=== PATIENT | female | born 1955 | race Caucasian/White ===

== ENCOUNTER 2018-02-04 19:02 | Inpatient (IN) | payer OTHER ==
[~2018-02-04] VITALS: Ht 167.6 cm; Wt 56.8 kg
[~2018-02-04 19:02] MED LIST: ALEN70 PO; Cipro500 MG PO; FERR325 PO; FOLI1 PO; Flagyl500 MG PO; IBUP400 PO; Mirtazapine7.5 MG PO; Norco 5-325 Ta1 EACH PO; PANT40 PO; SIMV10; THIA100 PO; TRAM50 PO; TRAZ50
[2018-02-04 21:00] LABS: BASOPHILS ABSOLUTE AUTO 0.02 K/mm3 (0.00-0.23); BASOPHILS PERCENT AUTO 0 % (0-2); EOSINOPHILS ABSOLUTE AUTO 0.01 K/mm3 (0.00-0.68); EOSINOPHILS PERCENT AUTO 0 % (0-6); Hematocrit 33.1 % (33.0-51.0); Hemoglobin 11.7 g/dL (11.5-16.0); IMMATURE GRAN ABSOLUTE AUTO 0.01 K/mm3 (0.00-0.10); IMMATURE GRAN PERCENT AUTO 0 % (0-1); LYMPHOCYTES ABSOLUTE AUTO 0.97 K/mm3 (0.84-5.20); LYMPHOCYTES PERCENT AUTO 19 % (21-46); MONOCYTES ABSOLUTE AUTO 0.34 K/mm3 (0.16-1.47); MONOCYTES PERCENT AUTO 7 % (4-13); Mean Corpuscular HGB 34.2 pg (26.0-34.0); Mean Corpuscular HGB Conc 35.3 g/dL (31.5-36.5); Mean Corpuscular Volume 97 fL (80-100); NEUTROPHILS ABSOLUTE AUTO 3.66 K/mm3 (1.96-9.15); NEUTROPHILS PERCENT AUTO 73 % (41-73); Platelet Count 110 K/mm3 (150-400); RDW Coefficient Variation 14.3 % (11.7-14.2); RDW Standard Deviation 50.7 fL (35.1-46.3); Red Blood Cell Count 3.42 M/mm3 (3.80-5.20); White Blood Cell Count 5.01 K/mm3 (4.00-11.30)
[2018-02-04 21:20] LABS: Alanine Aminotransfer (ALT/SGP 27 U/L (12-78); Albumin, Blood 2.9 g/dL (3.4-5.0); Albumin/Globulin Ratio 0.7 (0.8-1.8); Alk Phos 118 U/L (50-136); Anion Gap 13 mmol/L (6-16); Aspartate Aminotrans (AST/SGOT 57 U/L (12-37); Bilirubin, Total 0.6 mg/dL (0.1-1.0); Blood Urea Nitrogen 16 mg/dL (8-24); Bun/Creatinine Ratio 28.6 (12.0-20.0); CO2, Blood 24 mmol/L (21-32); Chloride, Blood 96 mmol/L (98-108); Creatinine, Blood 0.56 mg/dL (0.40-1.00); Glomerular Filtration Rate >60 (60-); Glucose, Blood 105 mg/dL (70-99); Potassium, Blood 2.5 mmol/L (3.5-5.5); Sodium, Blood 133 mmol/L (136-145); Total Protein, Blood 6.9 g/dL (6.4-8.2)
[2018-02-04 21:22] LABS: Lactate Dehydrogenase (Ld),Bld 194 U/L (100-240); Troponin I <0.015 ng/mL (0.000-0.040)
[2018-02-04 21:33] LABS: Source, Urine Clean Catch
[2018-02-04 21:35] LABS: Blood, Urine 2+ (Neg); Glucose Qualitative, Urine Neg (Neg); Ketones, Urine 3+ (Neg); Leukocyte Esterase, Urine 2+ (Neg); Nitrite, Urine Neg (Neg); Protein, Urine 3+ (Neg); Specific Gravity, Urine 1.015 (1.003-1.022); Urobilinogen, Urine 3+ (Normal)
[2018-02-04 21:40] LABS: Appearance, Urine Cloudy (Clear); Bilirubin, Urine 2+ (Neg); Color, Urine Amber (P-Yellow)
[2018-02-04 21:41] LABS: Bacteria Many /hpf; Red Blood Cells, Urine 0-2 /hpf (0-2); Squamous Epithelial Cells Few /hpf (Few)
[2018-02-04 23:05] LABS: Triglycerides 139 mg/dL (30-160)
[2018-02-05 05:28] LABS: Hematocrit 27.9 % (33.0-51.0); Hemoglobin 9.9 g/dL (11.5-16.0); Mean Corpuscular HGB 34.6 pg (26.0-34.0); Mean Corpuscular HGB Conc 35.5 g/dL (31.5-36.5); Mean Corpuscular Volume 98 fL (80-100); Mean Platelet Volume 11.1 fL (9.1-12.4); Platelet Count 93 K/mm3 (150-400); RDW Coefficient Variation 14.5 % (11.7-14.2); RDW Standard Deviation 51.7 fL (35.1-46.3); Red Blood Cell Count 2.86 M/mm3 (3.80-5.20); White Blood Cell Count 3.23 K/mm3 (4.00-11.30)
[2018-02-05 05:46] LABS: Anion Gap 10 mmol/L (6-16); Blood Urea Nitrogen 15 mg/dL (8-24); Bun/Creatinine Ratio 43.5 (12.0-20.0); CO2, Blood 24 mmol/L (21-32); Chloride, Blood 100 mmol/L (98-108); Creatinine, Blood 0.35 mg/dL (0.40-1.00); Glomerular Filtration Rate >60 (60-); Glucose, Blood 91 mg/dL (70-99); Potassium, Blood 3.2 mmol/L (3.5-5.5); Sodium, Blood 134 mmol/L (136-145)
[2018-02-05 14:35] LABS: BASOPHILS ABSOLUTE AUTO 0.01 K/mm3 (0.00-0.23); BASOPHILS PERCENT AUTO 0 % (0-2); EOSINOPHILS ABSOLUTE AUTO 0.04 K/mm3 (0.00-0.68); EOSINOPHILS PERCENT AUTO 1 % (0-6); Hematocrit 29.4 % (33.0-51.0); Hemoglobin 10.1 g/dL (11.5-16.0); IMMATURE GRAN ABSOLUTE AUTO 0.01 K/mm3 (0.00-0.10); IMMATURE GRAN PERCENT AUTO 0 % (0-1); LYMPHOCYTES ABSOLUTE AUTO 1.03 K/mm3 (0.84-5.20); LYMPHOCYTES PERCENT AUTO 32 % (21-46); MONOCYTES ABSOLUTE AUTO 0.31 K/mm3 (0.16-1.47); MONOCYTES PERCENT AUTO 10 % (4-13); Mean Corpuscular HGB 34.1 pg (26.0-34.0); Mean Corpuscular HGB Conc 34.4 g/dL (31.5-36.5); Mean Corpuscular Volume 99 fL (80-100); Mean Platelet Volume 11.4 fL (9.1-12.4); NEUTROPHILS ABSOLUTE AUTO 1.84 K/mm3 (1.96-9.15); NEUTROPHILS PERCENT AUTO 57 % (41-73); Platelet Count 109 K/mm3 (150-400); RDW Coefficient Variation 14.6 % (11.7-14.2); RDW Standard Deviation 54.1 fL (35.1-46.3); Red Blood Cell Count 2.96 M/mm3 (3.80-5.20); White Blood Cell Count 3.24 K/mm3 (4.00-11.30)
[2018-02-06 05:53] LABS: Albumin, Blood 2.2 g/dL (3.4-5.0); Anion Gap 8 mmol/L (6-16); Blood Urea Nitrogen 7 mg/dL (8-24); Bun/Creatinine Ratio 16.4 (12.0-20.0); CO2, Blood 27 mmol/L (21-32); Calcium, Blood 7.9 mg/dL (8.5-10.1); Chloride, Blood 101 mmol/L (98-108); Creatinine, Blood 0.43 mg/dL (0.40-1.00); Glomerular Filtration Rate >60 (60-); Glucose, Blood 120 mg/dL (70-99); Magnesium, Blood 1.7 mg/dL (1.6-2.4); Potassium, Blood 3.1 mmol/L (3.5-5.5); Sodium, Blood 136 mmol/L (136-145)
[2018-02-06 06:00] LABS: Phosphorus, Blood 0.9 mg/dL (2.5-4.9)
[2018-02-06 14:19] LABS: Albumin, Blood 2.3 g/dL (3.4-5.0); Anion Gap 4 mmol/L (6-16); Blood Urea Nitrogen 7 mg/dL (8-24); Bun/Creatinine Ratio 15.3 (12.0-20.0); CO2, Blood 29 mmol/L (21-32); Calcium, Blood 7.9 mg/dL (8.5-10.1); Chloride, Blood 99 mmol/L (98-108); Creatinine, Blood 0.46 mg/dL (0.40-1.00); Glomerular Filtration Rate >60 (60-); Glucose, Blood 120 mg/dL (70-99); Phosphorus, Blood 3.5 mg/dL (2.5-4.9); Sodium, Blood 132 mmol/L (136-145)
[2018-02-06 21:53] LABS: Stool Occult Blood Guaiac 1 Pos (Neg)
[2018-02-07 05:23] LABS: BASOPHILS ABSOLUTE AUTO 0.02 K/mm3 (0.00-0.23); BASOPHILS PERCENT AUTO 1 % (0-2); EOSINOPHILS ABSOLUTE AUTO 0.04 K/mm3 (0.00-0.68); EOSINOPHILS PERCENT AUTO 1 % (0-6); Hematocrit 25.8 % (33.0-51.0); Hemoglobin 8.9 g/dL (11.5-16.0); IMMATURE GRAN ABSOLUTE AUTO 0.03 K/mm3 (0.00-0.10); IMMATURE GRAN PERCENT AUTO 1 % (0-1); LYMPHOCYTES ABSOLUTE AUTO 1.29 K/mm3 (0.84-5.20); LYMPHOCYTES PERCENT AUTO 39 % (21-46); MONOCYTES ABSOLUTE AUTO 0.42 K/mm3 (0.16-1.47); MONOCYTES PERCENT AUTO 13 % (4-13); Mean Corpuscular HGB 33.6 pg (26.0-34.0); Mean Corpuscular HGB Conc 34.5 g/dL (31.5-36.5); Mean Corpuscular Volume 97 fL (80-100); Mean Platelet Volume 11.2 fL (9.1-12.4); NEUTROPHILS PERCENT AUTO 46 % (41-73); Platelet Count 138 K/mm3 (150-400); RDW Coefficient Variation 14.8 % (11.7-14.2); RDW Standard Deviation 52.2 fL (35.1-46.3); Red Blood Cell Count 2.65 M/mm3 (3.80-5.20)
[2018-02-07 05:45] LABS: Albumin, Blood 2.1 g/dL (3.4-5.0); Anion Gap 7 mmol/L (6-16); Blood Urea Nitrogen 7 mg/dL (8-24); Bun/Creatinine Ratio 17.1 (12.0-20.0); CO2, Blood 28 mmol/L (21-32); Calcium, Blood 7.8 mg/dL (8.5-10.1); Chloride, Blood 103 mmol/L (98-108); Creatinine, Blood 0.41 mg/dL (0.40-1.00); Glomerular Filtration Rate >60 (60-); Glucose, Blood 96 mg/dL (70-99); Phosphorus, Blood 3.2 mg/dL (2.5-4.9); Potassium, Blood 3.5 mmol/L (3.5-5.5); Sodium, Blood 138 mmol/L (136-145)
[2018-02-08 05:15] LABS: BASOPHILS ABSOLUTE AUTO 0.01 K/mm3 (0.00-0.23); BASOPHILS PERCENT AUTO 0 % (0-2); EOSINOPHILS ABSOLUTE AUTO 0.04 K/mm3 (0.00-0.68); EOSINOPHILS PERCENT AUTO 1 % (0-6); Hematocrit 27.7 % (33.0-51.0); Hemoglobin 9.4 g/dL (11.5-16.0); IMMATURE GRAN ABSOLUTE AUTO 0.02 K/mm3 (0.00-0.10); IMMATURE GRAN PERCENT AUTO 1 % (0-1); LYMPHOCYTES ABSOLUTE AUTO 1.38 K/mm3 (0.84-5.20); LYMPHOCYTES PERCENT AUTO 41 % (21-46); MONOCYTES ABSOLUTE AUTO 0.54 K/mm3 (0.16-1.47); MONOCYTES PERCENT AUTO 16 % (4-13); Mean Corpuscular HGB 33.7 pg (26.0-34.0); Mean Corpuscular HGB Conc 33.9 g/dL (31.5-36.5); Mean Corpuscular Volume 99 fL (80-100); Mean Platelet Volume 10.8 fL (9.1-12.4); NEUTROPHILS ABSOLUTE AUTO 1.42 K/mm3 (1.96-9.15); NEUTROPHILS PERCENT AUTO 42 % (41-73); Platelet Count 180 K/mm3 (150-400); RDW Coefficient Variation 15.2 % (11.7-14.2); RDW Standard Deviation 56.5 fL (35.1-46.3); Red Blood Cell Count 2.79 M/mm3 (3.80-5.20); White Blood Cell Count 3.41 K/mm3 (4.00-11.30)
[2018-02-08 05:42] LABS: Alanine Aminotransfer (ALT/SGP 27 U/L (12-78); Albumin, Blood 2.2 g/dL (3.4-5.0); Albumin/Globulin Ratio 0.7 (0.8-1.8); Anion Gap 7 mmol/L (6-16); Aspartate Aminotrans (AST/SGOT 36 U/L (12-37); Bilirubin, Total 0.2 mg/dL (0.1-1.0); Blood Urea Nitrogen 9 mg/dL (8-24); CO2, Blood 29 mmol/L (21-32); Calcium, Blood 8.3 mg/dL (8.5-10.1); Chloride, Blood 102 mmol/L (98-108); Globulin, Blood 3.3 g/dL (2.2-4.0); Glomerular Filtration Rate >60 (60-); Glucose, Blood 102 mg/dL (70-99); Magnesium, Blood 1.8 mg/dL (1.6-2.4); Sodium, Blood 138 mmol/L (136-145); Total Protein, Blood 5.5 g/dL (6.4-8.2)
[2018-02-08 05:43] LABS: Alk Phos 86 U/L (50-136)
[2018-02-08] MEDS ORDERED: FOLI1 PO (09:36)
[2018-02-08] MEDS ORDERED: ONDA4 PO (09:37)
[2018-02-08] MEDS ORDERED: PANT20 PO (09:37)
[2018-02-08] MEDS ORDERED: PRENATAL FORMU1 EAC1 PO (09:38)
[2018-02-08] MEDS ORDERED: THIA100 PO (09:39)
== END 2018-02-08 10:25 | disposition home or self-care (01) | DRG 439 ==
LOC: ER 19:02 → MEDS 22:45 → ENPENDDIS 02-08 09:38 → MEDS 02-08 10:25
PROVIDERS: Emergency Medicine; Hospitalist; Internal Medicine; Nurse Practitioner Acute Care
DX: K85.20 Alcohol induced acute pancreatitis without necrosis or infection (principal); N39.0 Urinary tract infection, site not specified; D61.818 Other pancytopenia; J45.909 Unspecified asthma, uncomplicated; F32.9 Major depressive disorder, single episode, unspecified; J44.9 Chronic obstructive pulmonary disease, unspecified; F17.210 Nicotine dependence, cigarettes, uncomplicated; E87.6 Hypokalemia; F10.20 Alcohol dependence, uncomplicated; E83.39 Other disorders of phosphorus metabolism; B96.20 Unspecified Escherichia coli [E. coli] as the cause of diseases classified elsewhere
CPT/HCPCS: 36415; 76705; 80048; 80053; 80069; 81001; 82272; 83615; 83690; 83735; 84100; 84478; 84484; 85025; 85027; 86140; 87077; 87086; 87186; 94640; 94760; 96361; 96365; 99285-25; C9113; J0696; J3411; J3480; J7030; J7060; J7120

== ENCOUNTER 2019-05-23 16:24 | Inpatient (IN) | payer OTHER ==
[~2019-05-23] VITALS: Ht 152.4 cm; Wt 62.7 kg
[~2019-05-23 16:24] MED LIST changes: -ALBU2.5V5 INH; -B-1100 M1 PO; -CIPR500 PO; -FERROUS SULFAT325 MG PO; -METR500 PO; -MIRT15 PO; -OMEPRAZOLE20 MG PO; -POTCHL20ER PO; -SIMV10 PO
[2019-05-23] MEDS ORDERED: ALEN70 PO (16:53)
[2019-05-23] MEDS ORDERED: SIMV10 PO (17:19)
[2019-05-23] MEDS ORDERED: FERROUS SULFAT325 MG PO (17:20)
[2019-05-23] MEDS ORDERED: FOLI1 PO (17:20)
[2019-05-23] MEDS ORDERED: OMEPRAZOLE20 MG PO (17:21)
[2019-05-23] MEDS ORDERED: MIRT15 PO (17:22)
[2019-05-23] MEDS ORDERED: POTCHL20ER PO (17:23)
--- NOTE | 2019-05-23 19:35 | NUR ---
ASSUMED CARE OF PT AT 1928. PT DENIES PAIN , VITALS STABLE, RECIEVING UNIT OF RBCs.
--- NOTE | 2019-05-23 19:40 | NUR ---
PT CAME TO ICU 1809; SHE IS ALERT AND ORIENTED X 3-4, EQUAL HOGSHEAD LINER, BUT WEAK. I BELIEVE SHE IS AT HER BASELINE FOR RANGE OF MOTION; FAIRLY FULL (AGAIN, SHE IS VERY WEAK). SHE IS IN SINUS RHYTHM TO SINUS TACH: 95-115; HER BLOOD PRESSURE IS SOFT PRIOR TO RECEIVING BLOOD PRODUCTS (SBP 80'S). CURRENTLY HER SBP HAS REACHED 90'S TO LOW 100-110. SHE DENIES CP, SOB, NAUSEA/VOMITING, DIZZINESS (SHE PREVIOUSLY WAS DIZZY), AND ANY DISCOMFORT AT THIS TIME. SHE IS A LITTLE WHEEZY, AND TAKES SHALLOW BREATHES, BUT IS SAT'ING HIGH 90'S. SHE HAS A COUGH AND SEEMS TO PRODUCING PHLEGM, BUT NOT IS COMING UP (THAT I HAVE SEEN). ACTIVE BOWEL TONES, SHE HAD AN INCONTINENT BM PRIOR TO ICU ADMISSION. SHE HAS NOT VOIDED SINCE ARRIVAL TO ICU. SKIN IS VERY FRAGILE, AND BRUISED FROM HER SEVERE ANEMIA. SHE HAS 2+ PITTING EDEMA IN HER BLE'S. SHE HAS PATENT IV'S. SHE HAS THE FIRST UNIT OF BLOOD INFUSING AT 125ML/HR. PROTONIX GTTP AND KCL IS WAITING TO BE STARTED. PULSES ARE SLIGHTLY FAINT AND THREADY IN DISTAL EXTREMETIES. I GAVE REPORT TO MARCELINO PALACIOS. BED IS LOW AND LOCKED. CALL LIGHT WITHIN REACH. PT IS ORIENTED TO HER ROOM.
[2019-05-23 22:35] LABS: BASOPHILS ABSOLUTE AUTO 0.01 K/mm3 (0.00-0.23); BASOPHILS PERCENT AUTO 0 % (0-2); EOSINOPHILS ABSOLUTE AUTO 0.01 K/mm3 (0.00-0.68); EOSINOPHILS PERCENT AUTO 0 % (0-6); Hematocrit 26.1 % (33.0-51.0); Hemoglobin 9.2 g/dL (11.5-16.0); IMMATURE GRAN ABSOLUTE AUTO 0.01 K/mm3 (0.00-0.10); IMMATURE GRAN PERCENT AUTO 0 % (0-1); LYMPHOCYTES ABSOLUTE AUTO 1.37 K/mm3 (0.84-5.20); LYMPHOCYTES PERCENT AUTO 31 % (21-46); MONOCYTES ABSOLUTE AUTO 0.57 K/mm3 (0.16-1.47); MONOCYTES PERCENT AUTO 13 % (4-13); Mean Corpuscular HGB 33.3 pg (26.0-34.0); Mean Corpuscular HGB Conc 35.2 g/dL (31.5-36.5); Mean Corpuscular Volume 95 fL (80-100); NEUTROPHILS ABSOLUTE AUTO 2.49 K/mm3 (1.96-9.15); NEUTROPHILS PERCENT AUTO 56 % (41-73); Platelet Count 125 K/mm3 (150-400); RDW Coefficient Variation 16.2 % (11.7-14.2); RDW Standard Deviation 55.5 fL (35.1-46.3); Red Blood Cell Count 2.76 M/mm3 (3.80-5.20); White Blood Cell Count 4.46 K/mm3 (4.00-11.30)
[2019-05-23 22:56] LABS: Magnesium, Blood 1.2 mg/dL (1.6-2.4)
[2019-05-23 23:06] LABS: Percent Saturation 127.1 % (15.0-50.0)
[2019-05-23 23:52] LABS: Phosphorus, Blood 1.7 mg/dL (2.5-4.9)
--- NOTE | 2019-05-24 03:20 | NUR ---
NS 500ML BOLUS GIVEN FROM 1LITER BAG FOR LOW BP 79/53.
[2019-05-24 03:51] LABS: BASOPHILS ABSOLUTE AUTO 0.02 K/mm3 (0.00-0.23); BASOPHILS PERCENT AUTO 1 % (0-2); EOSINOPHILS PERCENT AUTO 0 % (0-6); Hematocrit 26.1 % (33.0-51.0); Hemoglobin 9.2 g/dL (11.5-16.0); IMMATURE GRAN ABSOLUTE AUTO 0.02 K/mm3 (0.00-0.10); IMMATURE GRAN PERCENT AUTO 1 % (0-1); LYMPHOCYTES ABSOLUTE AUTO 1.24 K/mm3 (0.84-5.20); LYMPHOCYTES PERCENT AUTO 30 % (21-46); MONOCYTES ABSOLUTE AUTO 0.51 K/mm3 (0.16-1.47); MONOCYTES PERCENT AUTO 12 % (4-13); Mean Corpuscular HGB 32.6 pg (26.0-34.0); Mean Corpuscular HGB Conc 35.2 g/dL (31.5-36.5); Mean Corpuscular Volume 93 fL (80-100); Mean Platelet Volume 10.9 fL (9.1-12.4); NEUTROPHILS ABSOLUTE AUTO 2.31 K/mm3 (1.96-9.15); NEUTROPHILS PERCENT AUTO 56 % (41-73); Platelet Count 100 K/mm3 (150-400); RDW Coefficient Variation 15.7 % (11.7-14.2); RDW Standard Deviation 52.7 fL (35.1-46.3); Red Blood Cell Count 2.82 M/mm3 (3.80-5.20)
[2019-05-24 04:07] LABS: Alanine Aminotransfer (ALT/SGP 35 U/L (12-78); Albumin, Blood 1.1 g/dL (3.4-5.0); Albumin/Globulin Ratio 0.3 (0.8-1.8); Alk Phos 469 U/L (50-136); Anion Gap 6 mmol/L (6-16); Aspartate Aminotrans (AST/SGOT 80 U/L (12-37); Bilirubin, Total 1.4 mg/dL (0.1-1.0); Blood Urea Nitrogen 9 mg/dL (8-24); Bun/Creatinine Ratio 23.9 (12.0-20.0); CO2, Blood 27 mmol/L (21-32); Calcium, Blood 6.5 mg/dL (8.5-10.1); Chloride, Blood 100 mmol/L (98-108); Creatinine, Blood 0.38 mg/dL (0.40-1.00); Globulin, Blood 3.5 g/dL (2.2-4.0); Glomerular Filtration Rate >60 (60-); Glucose, Blood 164 mg/dL (70-99); Magnesium, Blood 1.2 mg/dL (1.6-2.4); Phosphorus, Blood 1.7 mg/dL (2.5-4.9); Potassium, Blood 3.1 mmol/L (3.5-5.5); Sodium, Blood 133 mmol/L (136-145); Total Protein, Blood 4.6 g/dL (6.4-8.2)
--- NOTE | 2019-05-24 07:30 | NUR ---
ASSUMED CARE OF PATIENT; SEE ASSESSMENT CHARTING FOR DETAILS. PATIENT SLEEPING; ROUSES TO SOFT, VERBAL OR TACTILE STIMULI. ORIENTED X3; PEASANT AND COOPERATIVE. NO ACUTE PAIN EXCEPT TENDERNESS TO LOWER EXT. WITH TOUCH. 1-2+ EDEMA TO MID CALF; NO OPENED SKIN. MONITOR NSR TO ST; NO ECTOPY NOTED; SBP REMAINS IN 80'S. LUNGS CLEAR; DECREASED IN BASES. BIOX 92-95%, ON RA, WHEN SLEEPING. MULTIPLE IV RIDERS INFUSING (KPHOS, MG++/COMPLETED ALBUMIN); ALSO, CLINIMAX INFUSING AT 100ML/HR AND PROTONIX DRIP INFUSING AT 10ML/HR; IV SITES (X3) INTACT. NO RECENT STOOL OR VOID.
--- NOTE | 2019-05-24 07:30 | NUR ---
PT RECIEVED 2 UNITS OF RBC. HGB UP TO 9.2.PT BLOOD PRESSURE WAS CONSITENLY LOW. PROVIDER CALL FOR LOW BP AND ELECTROLYTE REPLACEMENT ORDERS RECIEVED. 500ML BOLUS GIVEN. KPHOS, MAG, AND ALBUMIN GIVEN. PT HAD X2 BMs, IS IN A BREIF. CLINIMIX @ 100/HR, PROTONIX @ 10ML/HR. WILL CONTINUE TO MONITOR
--- NOTE | 2019-05-24 08:07 | NUR ---
ECHCOCARDIOGRAM TECH HERE TO DO ECHO ON PATIENT.
--- NOTE | 2019-05-24 09:01 | NUR ---
ECHOCARDIOGRAM COMPLETE
--- NOTE | 2019-05-24 10:00 | NUR ---
T/C FROM DR. WOODS (GI); HE PLANS TO DO AN ENDOSCOPY AFTER OFFICE HOURS; PATIENT TO BE NPO, AFTER LUNCH, FOR PROCEDURE.
--- NOTE | 2019-05-24 12:15 | NUR ---
BED BATH GIVEN AND LINENS CHANGED. SOME REDNESS TO RECTAL/NAS REGION; CLEANSED AND THEN MOISTURE BARRIER OINTMENT APPLIED; NEW DEPENDS PLACED. RN SPOKE TO PATIENT RE: PHYSICIANS PLAN FOR PROCEDURE; INSTRUCTION GIVEN ON NPO STATUS AFTER LUNCH AND WHAT TO EXPECT DURING PROCEDURE, ETC.
--- NOTE | 2019-05-24 13:50 | NUR ---
DR. STALLINGS ROUNDING; SEE ORDERS. REPEAT MAG++, RP AND H&H ORDERED FOR NOW AND THEN FOR AM (ALONG WITH OTHER LABS). LIMITED U/S OF ABD/LIVER ORDERED. DAY SURG. STOPPED BY TO EVAL. PATIENT; ENDO. TO BE DONE AROUND 5PM THIS EVENING; PATIENT NPO STATUS.
[2019-05-24 14:43] LABS: Hematocrit 25.2 % (33.0-51.0); Hemoglobin 8.9 g/dL (11.5-16.0)
[2019-05-24 14:55] LABS: Albumin, Blood 1.5 g/dL (3.4-5.0); Anion Gap 10 mmol/L (6-16); Blood Urea Nitrogen 9 mg/dL (8-24); Bun/Creatinine Ratio 20.9 (12.0-20.0); CO2, Blood 23 mmol/L (21-32); Calcium, Blood 6.9 mg/dL (8.5-10.1); Chloride, Blood 98 mmol/L (98-108); Creatinine, Blood 0.43 mg/dL (0.40-1.00); Glomerular Filtration Rate >60 (60-); Glucose, Blood 221 mg/dL (70-99); Phosphorus, Blood 2.4 mg/dL (2.5-4.9); Potassium, Blood 3.2 mmol/L (3.5-5.5); Sodium, Blood 131 mmol/L (136-145)
--- NOTE | 2019-05-24 16:31 | NUR ---
T/C TO DR. STALLINGS RE: LAB RESULTS; HE WILL PLACE SOME ORDERS.
--- NOTE | 2019-05-24 17:00 | NUR ---
IV DC'D WITHOUT INCIDENT; ARM ELEVATED ON PILLOW. DAY SURGERY ARRIVING TO SETUP FOR ENDO. DR. MÁRQUEZ SPOKE TO PATIENT AND FILLED OUT CONSENTS, ETC.
--- NOTE | 2019-05-24 17:00 | NUR ---
L A/C IV TURNED OFF AROUND 1630 D/T INFILTRATION; U/S OF ABD/LIVER/PANCREAS IN PROCESS; WILL D/C IV AFTER PROCEDURES.
--- NOTE | 2019-05-24 17:30 | NUR ---
ANESTHESIOLOGIST HERE AND REVIEWING CHART; DAY SURG. STAFF HAVE PATIENT ON L SIDE AND OXYGEN IN PLACE.
--- NOTE | 2019-05-24 17:44 | NUR ---
05/24/19 1744 RAE POTTER History, Chart, Medications and Allergies reviewed before start of procedure.3-LEAD EKG REVIEWED WITH PHYSICIAN PRIOR TO START OF PROCEDURE.O2 VIA N/C INTACT THROUGHOUT SEDATION/PROCEDURE. MONITOR INTACT WITH CONTINUOUS PULSE OXIMETRY AND INTERMITTENT BP.See Anesthesia record
--- NOTE | 2019-05-24 17:45 | NUR ---
PROCEDURE STARTED, SEE DAY SURG. NOTES.
--- NOTE | 2019-05-24 18:00 | NUR ---
PROCEDURE DONE; DR. MÁRQUEZ STATES PATIENT HAS NO ACTIVE BLEEDING BUT HAS VARICES NOTED IN DUODENUM (2ND TO PANCREATITIS). SEE PROCEDURE NOTE FOR FURTHER DETAILS.
--- NOTE | 2019-05-24 18:13 | NUR ---
ANESTHESIA TIME COMPLETED; PATIENT ON L SIDE; SLEEPING BUT ROUSES EASILY; VSS. OXYGEN MASK AND N/C REMOVED; BIOX 94% ON ROOM AIR.
--- NOTE | 2019-05-24 18:30 | NUR ---
INITIATED KPHOS AND K+ RIDERS; NOT ENOUGH ACCESSES TO START SOONER. REDOLGA TO R AC WILL MONITOR.
--- NOTE | 2019-05-24 19:00 | NUR ---
SUMMARY: DC'D IV IN R AC D/T REDNESS AND LEAKAGE. MABEL Trejo RN WILL START A POWERGLIDE USING ULTRASOUND. MAY RESUME CL DIET. DIETARY CONSULT ORDERED D/T POOR NUTRITIONAL STATUS. NO RECENT NAUSEA BUT C/O BACK DISCOMFORT; REPOSITIONED FREQUENTLY. NO STOOLS T/O DAY SHIFT. REDNESS TO NAS RECTAL REGION FADING; RECLEANSED AND DEPENDS CHANGED; MOISTURE BARRIER REAPPLIED. WILL REPORT TO ONCOMING RN.
--- NOTE | 2019-05-24 19:39 | NUR ---
ASSUMED CARE OF PT AT 1915, PATIENT STABLE RECOVERING FROM DAYTIME PRECEDURE. PT HAS PAIN , PROVIDER CALLED FOR ONE TIME ORDER OF FENTANYL FOR BREAK THROUGH PAIN. POWERGLIDE STARTED PER ADAPTIVE PHYSICAL EDUCATOR.
--- NOTE | 2019-05-24 22:59 | NUR ---
EZEQUIEL C/O OF STOMACH CRAPS, HOSPITALIST CALLED . ONE TIME ORDER FOR MAALOX GIVEN. SYMPTHOMS RELEAVED. ABLE TO EAT JELLO AND CHICKEN BROTH.
[2019-05-25 04:39] LABS: BASOPHILS ABSOLUTE AUTO 0.01 K/mm3 (0.00-0.23); BASOPHILS PERCENT AUTO 0 % (0-2); EOSINOPHILS ABSOLUTE AUTO 0.01 K/mm3 (0.00-0.68); EOSINOPHILS PERCENT AUTO 0 % (0-6); Hematocrit 25.4 % (33.0-51.0); Hemoglobin 8.8 g/dL (11.5-16.0); IMMATURE GRAN ABSOLUTE AUTO 0.03 K/mm3 (0.00-0.10); IMMATURE GRAN PERCENT AUTO 1 % (0-1); LYMPHOCYTES ABSOLUTE AUTO 1.15 K/mm3 (0.84-5.20); LYMPHOCYTES PERCENT AUTO 29 % (21-46); MONOCYTES ABSOLUTE AUTO 0.32 K/mm3 (0.16-1.47); MONOCYTES PERCENT AUTO 8 % (4-13); Mean Corpuscular HGB 32.6 pg (26.0-34.0); Mean Corpuscular HGB Conc 34.6 g/dL (31.5-36.5); Mean Corpuscular Volume 94 fL (80-100); Mean Platelet Volume 11.6 fL (9.1-12.4); NEUTROPHILS ABSOLUTE AUTO 2.43 K/mm3 (1.96-9.15); NEUTROPHILS PERCENT AUTO 61 % (41-73); Platelet Count 91 K/mm3 (150-400); RDW Standard Deviation 54.8 fL (35.1-46.3); White Blood Cell Count 3.95 K/mm3 (4.00-11.30)
[2019-05-25 04:50] LABS: Alanine Aminotransfer (ALT/SGP 32 U/L (12-78); Albumin, Blood 1.4 g/dL (3.4-5.0); Albumin/Globulin Ratio 0.4 (0.8-1.8); Alk Phos 374 U/L (50-136); Anion Gap 5 mmol/L (6-16); Aspartate Aminotrans (AST/SGOT 62 U/L (12-37); Blood Urea Nitrogen 8 mg/dL (8-24); Bun/Creatinine Ratio 23.1 (12.0-20.0); CO2, Blood 27 mmol/L (21-32); Calcium, Blood 7.1 mg/dL (8.5-10.1); Chloride, Blood 99 mmol/L (98-108); Creatinine, Blood 0.35 mg/dL (0.40-1.00); Globulin, Blood 3.2 g/dL (2.2-4.0); Glomerular Filtration Rate >60 (60-); Glucose, Blood 146 mg/dL (70-99); Magnesium, Blood 1.9 mg/dL (1.6-2.4); Phosphorus, Blood 1.9 mg/dL (2.5-4.9); Potassium, Blood 3.7 mmol/L (3.5-5.5); Sodium, Blood 131 mmol/L (136-145); Total Protein, Blood 4.6 g/dL (6.4-8.2)
[2019-05-25 04:58] LABS: Percent Saturation 112.5 % (15.0-50.0)
--- NOTE | 2019-05-25 07:30 | NUR ---
ASSUMED CARE OF PATIENT; SEE ASSESSMENT CHARTING FOR DETAILS. LUNGS DECREASED IN BASES; SOBOE; ROOM AIR AT PRESENT; BIOX 92-95% AT REST. VS MUCH IMPROVED; DENIES VERTIGO. CLINIMAX REMAINS AT 100ML/HR AND INFUSING VIA POWER GLIDE. WILL CONT. TO INFUSE RIDERS; ALBUMIN COMPLETING AND WILL HANG CALCIUM GLUCONATE AND THEN KPHOS 20MMOL. H&H STABLE AND NO BM'S. DEPENDS WORN D/T INCONTINENCE AND GENERALIZED WEAKNESS.
--- NOTE | 2019-05-25 08:00 | NUR ---
PATIENT C/O OF CRAMPS AND GAS, RELEAVED BY MAALOX, C/O REFLUX AFTER EATING CHICKEN BROTH, TUMS GIVEN. C/O OF SHORTNESS OF BREATH, RT CALLED, TREATMENT GIVEN. NO OTHER ACUTE EVENTS
--- NOTE | 2019-05-25 09:30 | NUR ---
UP TO CHAIR WITH SBA; TOLERATED WELL. SAT UP FOR ABOUT 30/MIN THEN READY TO GO BACK TO BED.
--- NOTE | 2019-05-25 11:30 | NUR ---
DARLYN SPOKE WITH PATIENT AND REVIEWED LABS, ETC. WANTS RN TO REQUEST DIET ADVANCE, WHEN PHYSICIANS ROUND.
--- NOTE | 2019-05-25 15:48 | NUR ---
DR. STALLINGS HERE; TO CHANGE PATIENT TO MEDICAL FLOOR STATUS (WITH TELEMETRY). DIET TO ADVANCE TO FULL LIQUID AND PUBLIC HEALTH INSPECTOR TO MANAGE DIET ONGOING. CONT. CURRENT BAG OF CLINIMAX AND THEN D/C IV FLUIDS.
--- NOTE | 2019-05-25 16:15 | NUR ---
ENSURE THERAPEUTIC SHAKE (VANILLA) GIVEN TO PATIENT. PATIENT CHANGED TO MED. FLOOR STATUS BUT NO ROOMS AVAILABLE.
--- NOTE | 2019-05-25 18:15 | NUR ---
SUMMARY- DR. MCRAE IN TO SEE PATIENT AROUND 1700; PATIENT TO RETURN TO DIET D/T POC IS TO DO COLONOSCOPY TOMORROW EVENING. TO TAKE GOLYTELY 2LITERS AT 2200 TONOC AND REPEAT AT 10AM TOMORROW; NPO AFTER LUNCH (FOR PROCEDURE). PATIENT UP IN CHAIR EARLIER AND HAS BEEN DANGLING (ON OWN) SEVERAL TIMES T/O DAY. PARTIAL BATH GIVEN; SMEAR OF STOOL AND SATURATED DEPENDS (WITH URINE). NO UNDUE REDNESS TO PERIRECTAL AREA. VSS AND MONITOR REMAINS NSR IN THE 90'S. OXYGEN AT 2L/MIN SINCE AFTERNOON; FEELING SOBOE; BIOX STABLE. WILL REPORT TO ONCOMING RN.
--- NOTE | 2019-05-25 19:00 | NUR ---
DURING BEDSIDE REPORT FOUND PT IN THE CHAIR ACROSS THE ROOM. HAD DISCONNECTED IV. A/O TO PERSON, PLACE, MONTH AND YEAR, BUT SEEMS A LITTLE DISORIENTED. HAD TAKEN TELE AND SPO2 PROBE OFF WELL. GOT PT TO CHAIR WITH TAB ALARM, CHANGED GOWN AND LINENS, PLACED BACK ON THE MONITOR, AND RECONNECTED IV. PT OK WITH SITTING IN CHAIR FOR NOW.
--- NOTE | 2019-05-26 06:01 | NUR ---
SUMMARY PT RESTING IN BED. A/O TO PERSON AND PLACE. PT IS FORGETFUL THIS AM. WAS INCONTINENT OF STOOL. HAD PULLED OUT AN IV AND WAS PEELING DRESSING OFF OF POWERGLIDE. CHANGED POWERGLIDE DRESSING. GOT PT UP TO TOILET AND SHE PASSED A MEDIUM BROWN STOOL MIXED WITH LIQUID. PT ONLY DRANK ABOUT 1000ML OF GOLYTELY. HAVE TO REMIND HER CONSTANTLY TO WHY SHE HAS DIARRHEA. BED ALARM ARMED WHILE IN BED.
[2019-05-26 07:08] LABS: HBSAG SCREEN Negative (Negative); HEP A AB, IGM Negative (Negative); HEP B CORE AB, IGM Negative (Negative); HEP C VIRUS AB <0.1 (0.0-0.9)
--- NOTE | 2019-05-26 07:50 | NUR ---
ASSUMED CARE AT 0700. REPORT FROM NEO BENSON. PT RESTING IN BED. WAKES c VERBAL STIMULI. PT FOLLOWS COMMANDS. INTERMITTANTLY GETS CONFUSED, REDIRECTS EASILY. PT C/O NAUSEA. STATES SHE DISLIKES GOLYTLE. ENCOURAGED PT TO DRINK. WILL ENCOURAGE GOLYTLELY TODAY, CLEAR LIQUIDS UNTIL 1200, NPO AFTER. PT c LIQUID BROWN STOOLS. ABD SOFT, ROUND, NON TENDER, BT X 4. SCD'S IN PLACE. POWERGLIDE TO LUE. FLUSHES EASILY. WILL CONTINUE TO MONITOR.
[2019-05-26 08:08] LABS: HBSAG SCREEN Negative (Negative); HEP B CORE AB, TOT Negative (Negative); HEP C VIRUS AB <0.1 (0.0-0.9)
[2019-05-26 09:48] LABS: BASOPHILS ABSOLUTE AUTO 0.01 K/mm3 (0.00-0.23); BASOPHILS PERCENT AUTO 0 % (0-2); EOSINOPHILS ABSOLUTE AUTO 0.02 K/mm3 (0.00-0.68); EOSINOPHILS PERCENT AUTO 0 % (0-6); Hematocrit 28.6 % (33.0-51.0); Hemoglobin 9.6 g/dL (11.5-16.0); IMMATURE GRAN ABSOLUTE AUTO 0.02 K/mm3 (0.00-0.10); IMMATURE GRAN PERCENT AUTO 0 % (0-1); LYMPHOCYTES ABSOLUTE AUTO 1.29 K/mm3 (0.84-5.20); LYMPHOCYTES PERCENT AUTO 28 % (21-46); MONOCYTES ABSOLUTE AUTO 0.59 K/mm3 (0.16-1.47); MONOCYTES PERCENT AUTO 13 % (4-13); Mean Corpuscular HGB 32.4 pg (26.0-34.0); Mean Corpuscular HGB Conc 33.6 g/dL (31.5-36.5); Mean Platelet Volume 11.7 fL (9.1-12.4); NEUTROPHILS PERCENT AUTO 58 % (41-73); Platelet Count 93 K/mm3 (150-400); RDW Coefficient Variation 15.9 % (11.7-14.2); RDW Standard Deviation 56.1 fL (35.1-46.3); Red Blood Cell Count 2.96 M/mm3 (3.80-5.20); White Blood Cell Count 4.63 K/mm3 (4.00-11.30)
[2019-05-26 10:00] LABS: Mean Corpuscular Volume 97 fL (80-100)
[2019-05-26 10:18] LABS: Alanine Aminotransfer (ALT/SGP 36 U/L (12-78); Albumin, Blood 1.7 g/dL (3.4-5.0); Albumin/Globulin Ratio 0.5 (0.8-1.8); Alk Phos 382 U/L (50-136); Anion Gap 3 mmol/L (6-16); Aspartate Aminotrans (AST/SGOT 88 U/L (12-37); Bilirubin, Total 0.9 mg/dL (0.1-1.0); Blood Urea Nitrogen 10 mg/dL (8-24); Bun/Creatinine Ratio 26.5 (12.0-20.0); CO2, Blood 32 mmol/L (21-32); Calcium, Blood 7.5 mg/dL (8.5-10.1); Chloride, Blood 96 mmol/L (98-108); Creatinine, Blood 0.38 mg/dL (0.40-1.00); Globulin, Blood 3.3 g/dL (2.2-4.0); Glomerular Filtration Rate >60 (60-); Glucose, Blood 88 mg/dL (70-99); Potassium, Blood 3.7 mmol/L (3.5-5.5); Sodium, Blood 131 mmol/L (136-145)
--- NOTE | 2019-05-26 12:05 | NUR ---
SHIFT SUMMARY FROM ICU- REPORT TO [facility]. ALL BELONGINGS c PT. PT CONTINUES TO DRINK GOLYTELY. REPORTED ONE EPISODE OF NAUSEA. RECTAL TUBE PLACED FOR FREQUENT LOOSE STOOLS. CURRENTLY WATERY AND BROWN. VSS. PT TRANSFERRED TO MEDICAL FLOOR.
--- NOTE | 2019-05-26 16:45 | NUR ---
History, Chart, Medications and Allergies reviewed before start of procedure. Patient confirms NPO status and agrees with scheduled procedure. LUNGS CLEAR BUT DIMISHED PER RN-BETO RAMSEY.
--- NOTE | 2019-05-26 16:53 | NUR ---
LEFT PATIENT'S DENTURES IN ROOM 344 DURING PROCEDURE, WERE NOT IN PLACE AT TIME OF PICKUP AND TRANSPORT.
--- NOTE | 2019-05-26 17:19 | NUR ---
PT WENT TO DAY SURGERY AT 1600 (ROUGHLY). WILL MEDICATED WHEN SHE RETURNS WITH SCHEDULED MEDICATIONS.
--- NOTE | 2019-05-26 17:22 | NUR ---
PT TRANSFERED TO MEDICAL FLOOR FROM ICU. PT ALERT AND ORIENTED X 3. SHE NEEDS FREQUENT REORIENTATION ABOUT THE COLONOSCOPY THAT IS PLANNED FOR TODAY. PT HAD A RECTAL TUBE IN PLACE THAT CAME OUT SHORTLY AFTER HER ARRIVAL. TUBE WAS LEFT OUT PT HAVING CONTINUIOUS LIQUID STOOLS RELATED TO BOWEL PREP. PT LEFT FOR COLONOSCOPY AT 1600. PT H&H HAS REMAINED STABLE AFTER SHE HAD A TRANSFUSION JUST AFTER ADMISSION (PER REPORT FROM INDUSTRIAL PHOTOGRAPHER).
--- NOTE | 2019-05-26 17:40 | NUR ---
05/26/[address] HERE TO PROVIDE ANESTHESIA CARE, PLEASE SEE RECORD. History, Chart, Medications and Allergies reviewed before start of procedure. PATIENT CONFIRMS NPO STATUS AND AGREES WITH SCHEDULED PROCEDURE. MONITOR INTACT WITH CONTINUOUS PULSE OXIMETRY AND INTERMITTENT BP. O2 VIA N/C INTACT THROUGHOUT SEDATION/PROCEDURE.
--- NOTE | 2019-05-26 19:28 | NUR ---
SHIFT SUMMARY- PT ARRIVED AT SHIFT CHANGE BEDSIED REPORT COMPLETED WITH NIGHT RN JIMBO AND AGRICULTURAL CONSULTANT MANOLO. PT STABLE AT SHIFT CHANGE. PT ALERT AND SPEAKING TO STAFF AND ASKING FOR FOOD. PER DR JUAREZ PT CAN HAVE A REGULAR DIET AT THIS TIME.
--- NOTE | 2019-05-26 20:35 | NUR ---
BP 82/55; HR 109; PT ATE SANDWICH AND PUDDING FOR DINNER; DENIES PAIN OR NAUSEA; NO ACTIVE BLEEDING NOTED; Emeka MEHTA NP NOTIFIED WITH ORDERS TO CONTINUE MONITOR.
[2019-05-27 02:05] LABS: BASOPHILS ABSOLUTE AUTO 0.01 K/mm3 (0.00-0.23); BASOPHILS PERCENT AUTO 0 % (0-2); EOSINOPHILS ABSOLUTE AUTO 0.01 K/mm3 (0.00-0.68); EOSINOPHILS PERCENT AUTO 0 % (0-6); Hematocrit 27.6 % (33.0-51.0); Hemoglobin 9.2 g/dL (11.5-16.0); IMMATURE GRAN ABSOLUTE AUTO 0.01 K/mm3 (0.00-0.10); IMMATURE GRAN PERCENT AUTO 0 % (0-1); LYMPHOCYTES ABSOLUTE AUTO 1.07 K/mm3 (0.84-5.20); LYMPHOCYTES PERCENT AUTO 25 % (21-46); MONOCYTES ABSOLUTE AUTO 0.49 K/mm3 (0.16-1.47); MONOCYTES PERCENT AUTO 11 % (4-13); Mean Corpuscular HGB 32.7 pg (26.0-34.0); Mean Corpuscular HGB Conc 33.3 g/dL (31.5-36.5); Mean Corpuscular Volume 98 fL (80-100); NEUTROPHILS ABSOLUTE AUTO 2.78 K/mm3 (1.96-9.15); NEUTROPHILS PERCENT AUTO 64 % (41-73); Platelet Count 99 K/mm3 (150-400); RDW Coefficient Variation 16.4 % (11.7-14.2); RDW Standard Deviation 57.9 fL (35.1-46.3); Red Blood Cell Count 2.81 M/mm3 (3.80-5.20); White Blood Cell Count 4.37 K/mm3 (4.00-11.30)
[2019-05-27 02:33] LABS: International Normalized Ratio 1.29; Prothrombin Time Results 13.4 Sec (9.7-11.5)
[2019-05-27 02:38] LABS: Alanine Aminotransfer (ALT/SGP 39 U/L (12-78); Albumin, Blood 1.5 g/dL (3.4-5.0); Albumin/Globulin Ratio 0.5 (0.8-1.8); Alk Phos 370 U/L (50-136); Anion Gap 4 mmol/L (6-16); Aspartate Aminotrans (AST/SGOT 104 U/L (12-37); Bilirubin, Total 0.5 mg/dL (0.1-1.0); Blood Urea Nitrogen 10 mg/dL (8-24); CO2, Blood 32 mmol/L (21-32); Calcium, Blood 7.5 mg/dL (8.5-10.1); Chloride, Blood 101 mmol/L (98-108); Creatinine, Blood 0.29 mg/dL (0.40-1.00); Globulin, Blood 3.2 g/dL (2.2-4.0); Glomerular Filtration Rate >60 (60-); Glucose, Blood 107 mg/dL (70-99); Potassium, Blood 3.6 mmol/L (3.5-5.5); Sodium, Blood 137 mmol/L (136-145); Total Protein, Blood 4.7 g/dL (6.4-8.2)
--- NOTE | 2019-05-27 04:48 | NUR ---
SHIFT SUMMARY: 63 Y/O MALE RESTED COMFORTABLY ALL SHIFT AFTER COMING TO FLOOR AT BEGINNING OF SHIFT POST COLONOSCOPY PROCEDURE; PT IS ALERT AND ORIENTED X 2 AND ABLE TO FOLLOW ALL SIMPLE VERBAL COMMANDS; PTS BP HYPOTENSIVE THIS SHIFT AT TIMES WITH HOSPITALIST--Emeka DIGGS, BAKER NOTIFIED; PT DID RECEIVE TWO 500ML BOLUS THIS SHIFT AFTER BP WAS 79/49 WITH AFTERWARDS BP 100/57; PT THEN AT 0116 HAD BP 67/49 WITH LIGHT RAIL VEHICLE OPERATOR CALLED; MD WAS NOTIFIED WITH LABS DRAWN; VITAL SIGNS PERFORMED EVERY 1 HOUR WITH BP AVERAGING 85/56, HR 108 PER HARNESS BRUSHER--MISSY; PT DENIES PAIN OR NAUSEA; PT INCONTINENT URINE LARGE AMOUNT X 2 WITH ATTENDS DIAPERS CHANGED; BED ALARM APPLIED WITH BED LOW POSITION AND CALL LIGHT AT SIDE.
--- NOTE | 2019-05-27 07:00 | NUR ---
ASSUMED CARE OF PT- BEDSIDE REPORT COMPLETED WITH NIGHT MARCELINO CHOI. PER REPORT PT BP HAS BEEN AN ISSUE T/O THE NIGHT. PT RECIEVED 2 500ML BOLUS OF LR. PT STILL EXPERIENCING PERSISTENT HYPOTENSION. THERE WAS A RAPID RESPONSE CALLED LAST NIGHT PER REPORT. THIS MORNINGS VITALS SHOWED A SBP OF 85. PT ALERT AND ORIENTED X3, DENIES PAIN STATES HER BELLY FEELS HARD AND STATES SHE HAS BEEN PASSING GAS. WILL CALL DR ELLINGTON ABOUT PERSISTENT HYPOTENSION. PT MAY NEED TO BE TRANSFERED TO A HIGHER LEVEL OF CARE VITALS INCREASED TO Q2 HOURS R/T VEWS SCORE OF 3.
--- NOTE | 2019-05-27 07:40 | NUR ---
CALLED DR ELLINGTON AND SPOKE ABOUT THE EVENTS OF LAST NIGHT AND THE PT CURRENT PRESSURES, RECIEVED AN ORDER FOR TRANSFER TO PCU FFOR PERSISTENT HYPOTENSION AT THIS TIME. MACHINE PACK ASSEMBLER NOTIFIED OF THE ORDER, WAITING FOR BED ASSIGNMENT.
--- NOTE | 2019-05-27 08:26 | NUR ---
PT TRANSFERRED FROM MEDICAL FLOOR TO ROOM PCU 11. VSS AT THIS TIME. SMALL AMOUNT OF RED BLOOD NOTED WITH ATTENDS CHANGE. PT STATES THIS HAS BEEN OCCURING AFTER POLYPS REMOVED YESTERDAY. CT CAME TO ROOM WITH ORAL CONTRAST TO START AT 0830. NO FURTHER NEEDS OR CONCERNS AT THIS TIME.
--- NOTE | 2019-05-27 08:36 | NUR ---
TRANSFER NOTE- TELEPHONE REPORT GIVEN TO MARCELINO THOMAS. PT TRANSFERED TO PCU 11. NO FURTHER QUESTIONS AT THE TIME OF TRANSFER, PT BELONGINGS TRANSFERED WITH HER.
[2019-05-27 08:52] LABS: Hematocrit 27.3 % (33.0-51.0); Hemoglobin 9.1 g/dL (11.5-16.0)
--- NOTE | 2019-05-27 10:15 | NUR ---
PT TAKEN TO CT AT THIS TIME.
--- NOTE | 2019-05-27 16:03 | NUR ---
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 CALL TO [facility] ANSWERING SERVICE WITH RETURN CALL THAT BOTH ANALY IRENE AND ALANA WERE OUT OF TOWN AND CALLS GO TO DR JESUS. AFTER SEARCHING FOR NUMBER UNSUCCESSFULLY, DISCUSSED WITH NURSING SANITATION LEAD WHO STATES DR GONZALEZ WAS RETIRED AND TO CALL DR HOWELL. MESSAGE LEFT AT DR HOWELL'S ANSWERING SERVICE.
--- NOTE | 2019-05-27 17:32 | NUR ---
SHIFT SUMMARY: PT HAS BEEN RESTING IN BED THIS SHIFT. VSS SINCE TRANSFER FROM [facility]. SOME BLEEDING NOTED WITH ATTENDS CHANGES. DR ELLINGTON AWARE. DR ELLINGTON DISCUSSED PT'S CASE WITH DR FORD WITH PLAN TO TREAT ABCESS AND CYST WITH ANTIBIOTICS AND HEMATOLOGY CONSULT FOR SPENIC THROMBUS. DENIES NEEDS OR CONCERNS AT THIS TIME.
--- NOTE | 2019-05-28 05:22 | NUR ---
SHIFT SUMMARY PT SLEEPING IN ROOM COMFORTABLY AT THIS TIME. NO ACUTE CHANGES IN STATUS T.O NIGHT. RESP EVEN UNLABORED ON RA W/ SATS >92%. PT DENIED ANY CP OR SOB T/O NIGHT. WAS MEDICATED ONCE PER EMAR FOR NAUSEA. SOME SWELLING NOTED TO L ELBOW BELOW POWERGLIDE IV. POWERGLIDE CONTINUED TO FLUSH EASILY AND DRAW BLOOD. AFTER CONSULTING WITH ALARM INSTALLATION TECHNICIAN OR ICU AND PCU IT WAS DECIDED THAT SWELLING WAS NOT DUE TO IV INFILTRATION BUT POSSIBLY DEPENDENT EDEMA, SINCE PT HAD BEEN LYING ON THAT ARM FOR SEVERAL HOURS TODAY. ARM WAS ELEVATED ON PILLOW AND SWELLING MONITORED. PT INCONTINENT OF URINE AND STOOL, ATTENDS IN PLACE PT CALLS APPROPRIATELY. CALL LIGHT IN REACH.
--- NOTE | 2019-05-28 07:30 | NUR ---
ASSUMED CARE: PT RESTING QUIETLY AT THIS TIME. DENIES NEEDS OR CONCERNS.
[2019-05-28 07:51] LABS: BASOPHILS ABSOLUTE AUTO 0.01 K/mm3 (0.00-0.23); BASOPHILS PERCENT AUTO 0 % (0-2); EOSINOPHILS PERCENT AUTO 0 % (0-6); Hematocrit 23.3 % (33.0-51.0); Hemoglobin 7.8 g/dL (11.5-16.0); IMMATURE GRAN ABSOLUTE AUTO 0.01 K/mm3 (0.00-0.10); IMMATURE GRAN PERCENT AUTO 0 % (0-1); LYMPHOCYTES ABSOLUTE AUTO 1.11 K/mm3 (0.84-5.20); LYMPHOCYTES PERCENT AUTO 29 % (21-46); MONOCYTES ABSOLUTE AUTO 0.62 K/mm3 (0.16-1.47); MONOCYTES PERCENT AUTO 16 % (4-13); Mean Corpuscular HGB 32.9 pg (26.0-34.0); Mean Corpuscular HGB Conc 33.5 g/dL (31.5-36.5); Mean Corpuscular Volume 98 fL (80-100); Mean Platelet Volume 11.5 fL (9.1-12.4); NEUTROPHILS ABSOLUTE AUTO 2.14 K/mm3 (1.96-9.15); NEUTROPHILS PERCENT AUTO 55 % (41-73); Platelet Count 103 K/mm3 (150-400); RDW Coefficient Variation 16.5 % (11.7-14.2); RDW Standard Deviation 57.7 fL (35.1-46.3); Red Blood Cell Count 2.37 M/mm3 (3.80-5.20); White Blood Cell Count 3.89 K/mm3 (4.00-11.30)
--- NOTE | 2019-05-28 08:03 | NUR ---
CALL TO DR ELLINGTON TO DISCUSS ORDER FOR LOVENOX SINCE PT'S H AND H WAS DECREASED THIS AM. ORDER TO RECHECK H AND H AND HOLD LOVENOX FOR NOW.
[2019-05-28 08:08] LABS: Alanine Aminotransfer (ALT/SGP 30 U/L (12-78); Albumin, Blood 1.4 g/dL (3.4-5.0); Albumin/Globulin Ratio 0.5 (0.8-1.8); Alk Phos 274 U/L (50-136); Anion Gap 5 mmol/L (6-16); Aspartate Aminotrans (AST/SGOT 45 U/L (12-37); Bilirubin, Total 0.4 mg/dL (0.1-1.0); Blood Urea Nitrogen 8 mg/dL (8-24); Bun/Creatinine Ratio 21.6 (12.0-20.0); CO2, Blood 30 mmol/L (21-32); Calcium, Blood 7.3 mg/dL (8.5-10.1); Chloride, Blood 103 mmol/L (98-108); Creatinine, Blood 0.37 mg/dL (0.40-1.00); Globulin, Blood 2.9 g/dL (2.2-4.0); Glomerular Filtration Rate >60 (60-); Glucose, Blood 102 mg/dL (70-99); Potassium, Blood 3.4 mmol/L (3.5-5.5); Sodium, Blood 138 mmol/L (136-145); Total Protein, Blood 4.3 g/dL (6.4-8.2)
--- NOTE | 2019-05-28 10:22 | NUR ---
CALL TO DR ELLINGTON REGARDING BLOD CULTURE. DUE TO BEING FROM [facility] DR WANTS TO WAIT TO TREAT UNTIL SECOND CULTURE COMES UP. NO NEW ORDERS AT THIS TIME.
[2019-05-28 12:28] LABS: Hematocrit 25.2 % (33.0-51.0); Hemoglobin 8.3 g/dL (11.5-16.0)
--- NOTE | 2019-05-28 18:25 | NUR ---
SHIFT SUMMARY: ANTICOAGULATION STARTED THIS AFTERNOON WITH LOVENOX AFTER H AND H RESULT IMPROVED. PLAN IS FOR MEDICAL MANAGEMENT OF CYST AND ABCESS WELL THROMBUS. NO FURTHER NEEDS OR CONCERNS NOTED.
--- NOTE | 2019-05-28 23:25 | NUR ---
PLACED CALL TO DR MOSES TO REPORT A LOWER BP W/ MAP OF 63 .. 89/53..FULL REPORT ABOUT DX AND HOSPITAL STAY NEW FINDINGS. DR MOSES SAYS TO CONTINUE TO WATCH. MD AWARE ASYMPTOMATIC. ASSUMED CARE AT 1900. ENC TO MOVE ABOUT IN BED AND DO ADL PER SELF. WEAK AND DOES NOTHING FOR SELF . COAXED TO ASSIST IN ANYTHING. INCONTINENT OF URINE AND STOOL AND INSISTS SHE HAS NO IDEA. CONVERSIVE AND O X3. AGREES TO DRINK CLEAR WARM FLUIDS AND NUTRIENT ENRICHEED. FAIR EFFORT. STOOL X2 AND WITH MOVING ABOUT IN BED , NO BP INPROVEMENT.WILL CHECK MORE FREQUENTLY MD REQUESTS. SR ST 90'S -110. MD AWARE OF ANASARCA AND LOW ALBUMIN. AND ANEMIA AND RBC NEEDED LAST WEEK . SEE DOCUMENTED BPS TONIGHT.
[2019-05-29 04:54] LABS: BASOPHILS ABSOLUTE AUTO 0.01 K/mm3 (0.00-0.23); BASOPHILS PERCENT AUTO 0 % (0-2); EOSINOPHILS ABSOLUTE AUTO 0.01 K/mm3 (0.00-0.68); EOSINOPHILS PERCENT AUTO 0 % (0-6); Hematocrit 23.8 % (33.0-51.0); Hemoglobin 7.9 g/dL (11.5-16.0); IMMATURE GRAN ABSOLUTE AUTO 0.03 K/mm3 (0.00-0.10); IMMATURE GRAN PERCENT AUTO 1 % (0-1); LYMPHOCYTES ABSOLUTE AUTO 1.41 K/mm3 (0.84-5.20); LYMPHOCYTES PERCENT AUTO 28 % (21-46); MONOCYTES PERCENT AUTO 18 % (4-13); Mean Corpuscular HGB 32.5 pg (26.0-34.0); Mean Corpuscular HGB Conc 33.2 g/dL (31.5-36.5); Mean Corpuscular Volume 98 fL (80-100); Mean Platelet Volume 11.1 fL (9.1-12.4); NEUTROPHILS ABSOLUTE AUTO 2.73 K/mm3 (1.96-9.15); NEUTROPHILS PERCENT AUTO 54 % (41-73); Platelet Count 131 K/mm3 (150-400); RDW Coefficient Variation 16.6 % (11.7-14.2); RDW Standard Deviation 59.6 fL (35.1-46.3); Red Blood Cell Count 2.43 M/mm3 (3.80-5.20); White Blood Cell Count 5.09 K/mm3 (4.00-11.30)
[2019-05-29 05:03] LABS: Anion Gap 6 mmol/L (6-16); Blood Urea Nitrogen 6 mg/dL (8-24); Bun/Creatinine Ratio 16.8 (12.0-20.0); CO2, Blood 29 mmol/L (21-32); Calcium, Blood 7.2 mg/dL (8.5-10.1); Chloride, Blood 102 mmol/L (98-108); Creatinine, Blood 0.36 mg/dL (0.40-1.00); Glomerular Filtration Rate >60 (60-); Glucose, Blood 77 mg/dL (70-99); Potassium, Blood 3.4 mmol/L (3.5-5.5); Sodium, Blood 137 mmol/L (136-145)
--- NOTE | 2019-05-29 06:19 | NUR ---
SHIFT SUMMARY. MAP 83 AT END OF SHIFT. CONT TO BE INCONTINENT OF URINE ;AND STOOL SAYS UNAWARE. ATTENDS CHECK Q2 HR W/ TURN. SR/ST . SOME FLUIDS TAKEN BUT VERY UNINTERESTED AND CONT VERY POOR APPETITE,. STATED POOR MEAL PREP AT HOME.
--- NOTE | 2019-05-29 14:15 | NUR ---
0730-ASSUMED CARE OF PT. PT IS ALERT AND ORIENTED. DENIES PAIN AT THIS TIME. 1000-PT SITTING ON THE CHAIR. OCCUPATIONAL THERAPIST CAME BY TO WORK WITH PATIENT AND HELPED PT TO THE CHAIR. 1200-PT BACK IN BED, EATING LUNCH.
--- NOTE | 2019-05-29 17:51 | NUR ---
SHIFT SUMMARY: PT WAS ABLE TO SIT ON THE CHAIR AT THIS TIME. AFEBRILE. BLOOD PRESSURE IS IN THE MID 80s TO LOW 90s WITH MAP 65 AND UP. PT HAS BEEN ALERT AND ORIENTED ALL DAY. STILL WITH EDEMATOUS FEET.
--- NOTE | 2019-05-29 19:25 | NUR ---
ASSUMED CARE OF PATIENT AT 1900 W/ REPORT FROM MARCELINA RN, PATIENT AWAKE LYING IN BED IN NO OBVIOUS DISTRESS. SYSTOLIC BP LOW AT 88, BUT MAP IS 67, CONSISTENT WITH REPORT OF PT'S BASELINE WHILE HOSPITALIZED. PATIENT DENIES PAIN, DENIES DIZZINESS. WILL CONTINUE TO MONITOR. BED LOCKED AND LOW, CALL LIGHT W/IN REACH.
[2019-05-30 05:21] LABS: BASOPHILS ABSOLUTE AUTO 0.02 K/mm3 (0.00-0.23); BASOPHILS PERCENT AUTO 0 % (0-2); EOSINOPHILS ABSOLUTE AUTO 0.01 K/mm3 (0.00-0.68); EOSINOPHILS PERCENT AUTO 0 % (0-6); Hematocrit 24.6 % (33.0-51.0); Hemoglobin 7.9 g/dL (11.5-16.0); IMMATURE GRAN ABSOLUTE AUTO 0.02 K/mm3 (0.00-0.10); IMMATURE GRAN PERCENT AUTO 0 % (0-1); LYMPHOCYTES ABSOLUTE AUTO 1.35 K/mm3 (0.84-5.20); LYMPHOCYTES PERCENT AUTO 26 % (21-46); MONOCYTES ABSOLUTE AUTO 0.89 K/mm3 (0.16-1.47); MONOCYTES PERCENT AUTO 17 % (4-13); Mean Corpuscular HGB 31.9 pg (26.0-34.0); Mean Corpuscular HGB Conc 32.1 g/dL (31.5-36.5); Mean Corpuscular Volume 99 fL (80-100); NEUTROPHILS ABSOLUTE AUTO 2.87 K/mm3 (1.96-9.15); NEUTROPHILS PERCENT AUTO 56 % (41-73); Platelet Count 162 K/mm3 (150-400); RDW Coefficient Variation 16.6 % (11.7-14.2); RDW Standard Deviation 59.6 fL (35.1-46.3); Red Blood Cell Count 2.48 M/mm3 (3.80-5.20); White Blood Cell Count 5.16 K/mm3 (4.00-11.30)
[2019-05-30 05:37] LABS: Anion Gap 4 mmol/L (6-16); Blood Urea Nitrogen 6 mg/dL (8-24); Bun/Creatinine Ratio 15.2 (12.0-20.0); CO2, Blood 29 mmol/L (21-32); Calcium, Blood 7.2 mg/dL (8.5-10.1); Chloride, Blood 103 mmol/L (98-108); Glomerular Filtration Rate >60 (60-); Glucose, Blood 86 mg/dL (70-99); Potassium, Blood 3.4 mmol/L (3.5-5.5); Sodium, Blood 136 mmol/L (136-145)
--- NOTE | 2019-05-30 07:05 | NUR ---
SHIFT SUMMARY NO ACUTE CHANGES THIS SHIFT, PATIENT IS WEAK AND PREFERS TO STAY IN BED, NEEDS ENCOURAGEMENT TO MOVE/TRANSFER. BLOOD PRESSURES REMAINED LOW T/O SHIFT, WITH ACCEPTABLE MAP MET, BUT BARELY. PATIENT WAS ABLE TO MAINTAIN O2 SATS ABOVE 90% ON ROOM AIR ALL THIS SHIFT, AND POLITE AND COMPLIANT WITH ALL INTERVENTIONS. PATIENT WAS MEDICATED AND TREATED PER MD ORDER AND UNIT PROTOCOL; NO ISSUES OUTSIDE ROUTINE. WILL PASS CARE AND REPORT TO ONCOMING SHIFT. BED LOCKED AND LOW, CALL LIGHT W/IN REACH
--- NOTE | 2019-05-30 16:57 | NUR ---
SHIFT SUMMARY PT HAS BEEN UP SEVERAL TIMES TO BSC OR CHAIR. BMS ARE BROWN BUT BRIGHT RED BLOOD WITH WIPING. HEMORROID OR PROLAPSE FELT DURING WIPING. PT STATES CHRONIC. VS UNCHANGED. PT CHANGED TO MED STATUS BY MD. PT IS ANXIOUS ABOUT THE IDEA OF GOING HOME. BLE ELEVATED ON PILLOWS WHEN IN BED TO HELP WITH EDEMA. PT MAKING PROGRESS WITH TAKING IN PO FOOD.
[2019-05-30 22:03] LABS: International Normalized Ratio 1.35; Prothrombin Time Results 13.9 Sec (9.7-11.5)
[2019-05-31 05:43] LABS: BASOPHILS ABSOLUTE AUTO 0.03 K/mm3 (0.00-0.23); BASOPHILS PERCENT AUTO 1 % (0-2); EOSINOPHILS ABSOLUTE AUTO 0.01 K/mm3 (0.00-0.68); EOSINOPHILS PERCENT AUTO 0 % (0-6); Hematocrit 24.8 % (33.0-51.0); Hemoglobin 8.1 g/dL (11.5-16.0); IMMATURE GRAN ABSOLUTE AUTO 0.02 K/mm3 (0.00-0.10); IMMATURE GRAN PERCENT AUTO 0 % (0-1); LYMPHOCYTES ABSOLUTE AUTO 1.46 K/mm3 (0.84-5.20); LYMPHOCYTES PERCENT AUTO 30 % (21-46); MONOCYTES ABSOLUTE AUTO 0.65 K/mm3 (0.16-1.47); MONOCYTES PERCENT AUTO 14 % (4-13); Mean Corpuscular HGB 32.4 pg (26.0-34.0); Mean Corpuscular HGB Conc 32.7 g/dL (31.5-36.5); Mean Corpuscular Volume 99 fL (80-100); Mean Platelet Volume 11.3 fL (9.1-12.4); NEUTROPHILS ABSOLUTE AUTO 2.63 K/mm3 (1.96-9.15); NEUTROPHILS PERCENT AUTO 55 % (41-73); Platelet Count 210 K/mm3 (150-400); RDW Coefficient Variation 16.8 % (11.7-14.2); RDW Standard Deviation 60.9 fL (35.1-46.3)
[2019-05-31 06:03] LABS: Alanine Aminotransfer (ALT/SGP 19 U/L (12-78); Albumin, Blood 1.4 g/dL (3.4-5.0); Albumin/Globulin Ratio 0.4 (0.8-1.8); Alk Phos 251 U/L (50-136); Anion Gap 4 mmol/L (6-16); Aspartate Aminotrans (AST/SGOT 27 U/L (12-37); Bilirubin, Total 0.4 mg/dL (0.1-1.0); Blood Urea Nitrogen 5 mg/dL (8-24); Bun/Creatinine Ratio 11.9 (12.0-20.0); CO2, Blood 29 mmol/L (21-32); Calcium, Blood 7.4 mg/dL (8.5-10.1); Chloride, Blood 104 mmol/L (98-108); Creatinine, Blood 0.42 mg/dL (0.40-1.00); Globulin, Blood 3.2 g/dL (2.2-4.0); Glomerular Filtration Rate >60 (60-); Glucose, Blood 86 mg/dL (70-99); Potassium, Blood 3.2 mmol/L (3.5-5.5); Sodium, Blood 137 mmol/L (136-145); Total Protein, Blood 4.6 g/dL (6.4-8.2)
--- NOTE | 2019-05-31 07:30 | NUR ---
ASSUMED CARE: PT RESTING QUIETLY AT THIS TIME. NO ACUTE NEEDS OR CONCERNS.
--- NOTE | 2019-05-31 07:53 | NUR ---
SHIFT SUMMARY ASSUMED CARE OF PT AT 1900, PATIENT LYING PEACEFULLY IN BED EYES CLOSED BREATHING DEEPLY. MEDICATED AND TREATED PATIENT PER UNIT PROTOCOL AND MD ORDER. PATIENT DENIES PAIN, WAS INCONTINENT OF URINE AND STOOL, STOOL WAS LOOSE/FORMED AND BROWN, NOT BLACK. PATIENT WAS HYPOTENSIVE APPEARS TO BE HER BASELINE AND ASYMPTOMATIC, ALTHOUGH DECONDITIONED AND SORE IN THE KNEE JOINTS, REQUIRES 1-2 STAFF FOR TRANSFER TO COMMODE. OTHERWISE NO ISSUES, OTHER THAN PATIENT REFUSING TO DRINK ENSURE SUPPLEMENT, AND REPORTING NOT HUNGRY AT MEALS. CARE AND REPORT PASSED TO ONCOMING SHIFT AT 0700, PATIENT LYING IN BED, EYES CLOSED, BREATHING DEEPLY, BED LOCKED AN LOW, CALL LIGHT W/IN REACH
--- NOTE | 2019-05-31 11:57 | NUR ---
DR MCKEON CAME TO SEE PT AND SAW THAT PHYSICAL THERAPY RECOMMENDS SNF. DISCHARGE PLANNING AWARE OF PLAN AND WORKING ON DC
--- NOTE | 2019-05-31 17:45 | NUR ---
SHIFT SUMMARY: PT SITTING UP IN RECLINER EATING DINNER. PLAN IS FOR DC TO SNF TOMORROW. DENIES NEEDS OR CONCERNS. CURRENTLY MED NO TELE STATUS.
--- NOTE | 2019-05-31 19:25 | NUR ---
ASSUMED CARE OF PATIENT AT 1900, PATIENT AWAKE AND ALERT LYING IN BED. VITAL SIGNS ALL WNL, PATIENT DENIES PAIN, DENIES DYSPNEA, BUT C/O ABD DISTENTION BEYOND HER BASELINE. ASSISTED PATIENT TO TRANSFER TO BEDSIDE COMMODE AT THIS POINT, PATIENT IS INCONTINENT OF STOOL, STOOL LOOSE AND BROWN. WILL CONTINUE TO MONITOR. BED LOCKED AND LOW, CALL LIGHT W/IN REACH
[2019-06-01 04:42] LABS: Hematocrit 24.8 % (33.0-51.0); Hemoglobin 8.3 g/dL (11.5-16.0); Mean Corpuscular HGB 33.1 pg (26.0-34.0); Mean Corpuscular HGB Conc 33.5 g/dL (31.5-36.5); Mean Corpuscular Volume 99 fL (80-100); Platelet Count 229 K/mm3 (150-400); RDW Coefficient Variation 16.8 % (11.7-14.2); RDW Standard Deviation 60.8 fL (35.1-46.3); Red Blood Cell Count 2.51 M/mm3 (3.80-5.20); White Blood Cell Count 3.98 K/mm3 (4.00-11.30)
[2019-06-01 04:57] LABS: International Normalized Ratio 3.9; Prothrombin Time Results 36.5 Sec (9.7-11.5)
[2019-06-01 05:14] LABS: BAND PERCENT MAN 2 % (0-8); BASOPHILS ABSOLUTE MAN 0.07 K/mm3 (0.00-0.23); BASOPHILS PERCENT MAN 2 % (0-2); EOSINOPHILS PERCENT MAN 0 % (0-6); LYMPHOCYTES ABSOLUTE MAN 1.19 K/mm3 (0.84-5.20); LYMPHOCYTES PERCENT MAN 30 % (21-46); MONOCYTES ABSOLUTE MAN 0.15 K/mm3 (0.16-1.47); MONOCYTES PERCENT MAN 4 % (4-13); NEUTROPHILS ABSOLUTE MAN 2.54 K/mm3 (1.96-9.15); SEG NEUTROPHILS PERCENT MAN 62 % (41-73); TOTAL CELLS COUNTED 100
--- NOTE | 2019-06-01 06:04 | NUR ---
SPOKE WITH HOSPITALIST EDWARD ABOUT PATIENT HAVING THREE LOOSE STOOL IN THE LAST 24 HOURS. NO NEW ORDERS: SAID UTILIZE IMMODIUM ORDER RECENTLY PLACED.
--- NOTE | 2019-06-01 07:50 | NUR ---
SHIFT SUMMARY PATIENT WAS MEDICATED AND TREATED PER MD ORDER AND UNIT PROTOCOL, WITH NO ISSUES OTHER THAN DIARRHEA (SEE NOTE) ALL VSS AND WITHIN NORMAL LIMITS FOR THIS PATIENT. PATIENT WAS HAPPY TO HEAR OF ORDER FOR IMODIUM FOR DIARRHEA WHICH SHE USES SUCCESSFULLY AT HOME. GAVE CARE AND REPORT TO ONCOMING SHIFT AT 0700, PATIENT AWAKE AND ALERT, BED LOCKED AND LOW, CALL LIGHT W/IN REACH.
--- NOTE | 2019-06-01 17:50 | NUR ---
SHIFT SUMMARY NO ACUTE CHANGES THROUGH THE DAY. PT REMAINS A&O X4, VSS, RESP UNLABORED, ON ROOM AIR. PT HAS BEEN UP TO THE CHAIR & HAS ALSO WORKED WITH PHYSICAL THERAPY. PT REPORTS LOOSE STOOLS BUT THEY ARE FORMED AND BROWN. WCTM, CALL LIGHT IN REACH
[2019-06-02 04:40] LABS: Prothrombin Time Results 44.6 Sec (9.7-11.5)
[2019-06-02 04:57] LABS: International Normalized Ratio 4.86
--- NOTE | 2019-06-02 05:24 | NUR ---
SHIFT SUMMARY PT ALERT; RESPONDING APPROPRIATELY; PT ON SATS >92; NO TELE IN PLACE; PT INCONTINENT AND NOTIFIES STAFF OF NEED FOR ATTENDS CHANGE; PT RESTED WELL IN BETWEEN INTERVENTIONS; PT STATES BP NORMAL FOR HER; WOODY POWERGLIDE FLUSHING APPROPRIATELY; PHYSICIAN NOTIFIED OF AM LAB VALUES CRITICAL HIGH INR; NO NEW ORDERS GIVEN; CALL LIGHT IN REACH; BED IN LOWEST POSITION; WILL CONTINUE TO MONITOR CLOSELY UNTIL HAND OFF TO DAY SHIFT RN
[2019-06-02 09:14] LABS: BASOPHILS ABSOLUTE AUTO 0.04 K/mm3 (0.00-0.23); BASOPHILS PERCENT AUTO 1 % (0-2); EOSINOPHILS ABSOLUTE AUTO 0.02 K/mm3 (0.00-0.68); EOSINOPHILS PERCENT AUTO 0 % (0-6); Hematocrit 27.9 % (33.0-51.0); Hemoglobin 8.7 g/dL (11.5-16.0); IMMATURE GRAN ABSOLUTE AUTO 0.02 K/mm3 (0.00-0.10); IMMATURE GRAN PERCENT AUTO 0 % (0-1); LYMPHOCYTES ABSOLUTE AUTO 1.94 K/mm3 (0.84-5.20); LYMPHOCYTES PERCENT AUTO 33 % (21-46); MONOCYTES ABSOLUTE AUTO 0.41 K/mm3 (0.16-1.47); MONOCYTES PERCENT AUTO 7 % (4-13); Mean Corpuscular HGB Conc 31.2 g/dL (31.5-36.5); Mean Corpuscular Volume 99 fL (80-100); Mean Platelet Volume 11.5 fL (9.1-12.4); NEUTROPHILS ABSOLUTE AUTO 3.46 K/mm3 (1.96-9.15); NEUTROPHILS PERCENT AUTO 59 % (41-73); Platelet Count 286 K/mm3 (150-400); RDW Coefficient Variation 16.8 % (11.7-14.2); RDW Standard Deviation 60.5 fL (35.1-46.3); Red Blood Cell Count 2.81 M/mm3 (3.80-5.20); White Blood Cell Count 5.89 K/mm3 (4.00-11.30)
[2019-06-02 09:22] LABS: Alanine Aminotransfer (ALT/SGP 18 U/L (12-78); Albumin, Blood 1.4 g/dL (3.4-5.0); Albumin/Globulin Ratio 0.4 (0.8-1.8); Alk Phos 234 U/L (50-136); Anion Gap 5 mmol/L (6-16); Aspartate Aminotrans (AST/SGOT 34 U/L (12-37); Bilirubin, Total 0.3 mg/dL (0.1-1.0); Blood Urea Nitrogen 3 mg/dL (8-24); Bun/Creatinine Ratio 6.8 (12.0-20.0); CO2, Blood 26 mmol/L (21-32); Calcium, Blood 7.5 mg/dL (8.5-10.1); Chloride, Blood 108 mmol/L (98-108); Creatinine, Blood 0.44 mg/dL (0.40-1.00); Globulin, Blood 3.6 g/dL (2.2-4.0); Glomerular Filtration Rate >60 (60-); Glucose, Blood 107 mg/dL (70-99); Magnesium, Blood 1.6 mg/dL (1.6-2.4); Potassium, Blood 4.1 mmol/L (3.5-5.5); Sodium, Blood 139 mmol/L (136-145)
[2019-06-02] MEDS ORDERED: ALBU2.5V5 INH (09:52)
[2019-06-02] MEDS ORDERED: CIPR500 PO (09:54)
[2019-06-02] MEDS ORDERED: METR500 PO (09:58)
[2019-06-02] MEDS ORDERED: B-1100 M1 PO (09:59)
--- NOTE | 2019-06-02 12:23 | NUR ---
PT LEFT WITH TRANSPORT TO [facility], PROVIDED WITH D/C INSRTUCTIONS, PT PROVIDED WITH ALL BELONGINGS. PT DENIES FURHTER NEEDS, EXPRESSED UNDERSTANDING OF TEACHING AND NEW MEDCIATIONS EDUCATION
== END 2019-06-02 12:16 | DRG 438 ==
LOC: ER 16:24 → ICUW 16:52 → PCU 16:52 → ICUW 18:24 → MEDS 05-26 12:10 → PCU 05-27 08:05 → ENPENDDIS 06-02 12:00 → PCU 06-02 12:16
PROVIDERS: Internal Medicine; Internal Medicine Endocrinology, Diabetes & Metabolism; Nurse Practitioner Acute Care; Student in an Organized Health Care Education/Training Program; ADMIT Hospitalist
PROC: 30233N1 Transfusion of Nonautologous Red Blood Cells into Peripheral Vein, Percutaneous Approach (ICD-10-PCS; 2019-05-23)
PROC: 0DD68ZX Extraction of Stomach, Via Natural or Artificial Opening Endoscopic, Diagnostic (ICD-10-PCS; 2019-05-24)
PROC: 0DD98ZX Extraction of Duodenum, Via Natural or Artificial Opening Endoscopic, Diagnostic (ICD-10-PCS; principal; 2019-05-24 09:45)
PROC: 0DBK8ZZ Excision of Ascending Colon, Via Natural or Artificial Opening Endoscopic (ICD-10-PCS; 2019-05-26)
PROC: 0DBN8ZZ Excision of Sigmoid Colon, Via Natural or Artificial Opening Endoscopic (ICD-10-PCS; 2019-05-26)
PROC: 0DBM8ZZ Excision of Descending Colon, Via Natural or Artificial Opening Endoscopic (ICD-10-PCS; 2019-05-26)
DX: K85.90 Acute pancreatitis without necrosis or infection, unspecified (principal); K26.4 Chronic or unspecified duodenal ulcer with hemorrhage; E43 Unspecified severe protein-calorie malnutrition; K29.71 Gastritis, unspecified, with bleeding; D62 Acute posthemorrhagic anemia; I82.890 Acute embolism and thrombosis of other specified veins; D61.818 Other pancytopenia; K63.5 Polyp of colon; K86.1 Other chronic pancreatitis; I86.4 Gastric varices; J44.9 Chronic obstructive pulmonary disease, unspecified; F17.210 Nicotine dependence, cigarettes, uncomplicated; E87.6 Hypokalemia; I95.9 Hypotension, unspecified; E88.09 Other disorders of plasma-protein metabolism, not elsewhere classified; K44.9 Diaphragmatic hernia without obstruction or gangrene; E86.9 Volume depletion, unspecified; E83.42 Hypomagnesemia; E83.39 Other disorders of phosphorus metabolism; K76.0 Fatty (change of) liver, not elsewhere classified; K70.30 Alcoholic cirrhosis of liver without ascites
CPT/HCPCS: 36415; 36430; 74177; 76705; 80048; 80053; 80069; 80074; 82272; 82607; 82728; 82746; 83540; 83550; 83735; 83880; 84100; 85007; 85014; 85018; 85025; 85027; 85610; 86317; 86704; 86708; 86803; 86850; 86900; 86901; 86923; 87040; 87340; 88305; 88342; 90686; 93306; 94640; 94760; 96374; 97116; 97162; 97165; 97530; 97535; 99285-25; A9270-GY; C1751; C9113; G0008; J0610; J0744; J1650; J2250; J2370; J2405; J2704; J3010; J3475; J3480; J7030; J7050; J7060; J7120; P9016; P9041; P9046; Q9967

== ENCOUNTER → 2019-05-23 | Outpatient (CLI) | payer OTHER ==
[~2019-05-23] MED LIST changes: +ALBU2.5V5 INH; +B-1100 M1 PO; +CIPR500 PO; +FERROUS SULFAT325 MG PO; +LEVA1.25 INH; +METR500 PO; +MIRT15 PO; -Mirtazapine7.5 MG PO; +OMEPRAZOLE20 MG PO; +ONDA4 PO; +PANT20 PO; +POTCHL20ER PO; +PRENATAL FORMU1 EAC1 PO; +SIMV10 PO; +SUCR1 PO; +TRAZ50 PO
[2019-05-23 15:02] LABS: BASOPHILS ABSOLUTE AUTO 0.02 K/mm3 (0.00-0.23); BASOPHILS PERCENT AUTO 0 % (0-2); EOSINOPHILS PERCENT AUTO 0 % (0-6); Hematocrit 21.8 % (33.0-51.0); Hemoglobin 7.4 g/dL (11.5-16.0); IMMATURE GRAN ABSOLUTE AUTO 0.02 K/mm3 (0.00-0.10); IMMATURE GRAN PERCENT AUTO 0 % (0-1); LYMPHOCYTES ABSOLUTE AUTO 0.99 K/mm3 (0.84-5.20); LYMPHOCYTES PERCENT AUTO 19 % (21-46); MONOCYTES ABSOLUTE AUTO 0.37 K/mm3 (0.16-1.47); MONOCYTES PERCENT AUTO 7 % (4-13); Mean Corpuscular HGB 32.6 pg (26.0-34.0); Mean Corpuscular HGB Conc 33.9 g/dL (31.5-36.5); Mean Corpuscular Volume 96 fL (80-100); Mean Platelet Volume 11.2 fL (9.1-12.4); NEUTROPHILS ABSOLUTE AUTO 3.69 K/mm3 (1.96-9.15); NEUTROPHILS PERCENT AUTO 73 % (41-73); Platelet Count 162 K/mm3 (150-400); RDW Coefficient Variation 17.8 % (11.7-14.2); RDW Standard Deviation 61.2 fL (35.1-46.3); Red Blood Cell Count 2.27 M/mm3 (3.80-5.20); White Blood Cell Count 5.09 K/mm3 (4.00-11.30)
[2019-05-23 15:43] LABS: Alanine Aminotransfer (ALT/SGP 40 U/L (12-78); Albumin, Blood 1.3 g/dL (3.4-5.0); Albumin/Globulin Ratio 0.3 (0.8-1.8); Alk Phos 563 U/L (40-126); Anion Gap 18 mmol/L (6-16); Aspartate Aminotrans (AST/SGOT 127 U/L (12-37); Bilirubin, Total 0.8 mg/dL (0.1-1.0); Blood Urea Nitrogen 10 mg/dL (8-24); Bun/Creatinine Ratio 16.4 (12.0-20.0); CO2, Blood 21 mmol/L (21-32); Calcium, Blood 6.7 mg/dL (8.5-10.1); Chloride, Blood 97 mmol/L (98-108); Creatinine, Blood 0.61 mg/dL (0.40-1.00); Globulin, Blood 3.8 g/dL (2.2-4.0); Glomerular Filtration Rate >60 (60-); Glucose, Blood 135 mg/dL (70-99); Potassium, Blood 2.8 mmol/L (3.5-5.5); Sodium, Blood 136 mmol/L (136-145); Total Protein, Blood 5.1 g/dL (6.4-8.2)
== END | disposition home or self-care (01) ==
LOC: LAB EV 14:58 → LAB SHORT 14:58
PROVIDERS: Family Medicine
DX: I95.9 Hypotension, unspecified (principal)
CPT/HCPCS: 80053; 83690; 85025

== ENCOUNTER 2020-02-16 08:31 | Emergency (ER) | payer OTHER ==
[~2020-02-16] VITALS: Ht 165.1 cm; Wt 56.7 kg
[~2020-02-16 08:31] MED LIST changes: +ACET325 PO; +ALBU2.5V5 INH; +B-1100 M1 PO; +CIPR500 PO; +FERROUS SULFAT325 MG PO; +GABA100 PO; +MAGNESIUM OXID500 MG; +METR500 PO; +MIDO5 PO; +MIRT15 PO; +OMEPRAZOLE20 MG PO; +POTCHL20ER PO; +SIMV10 PO
[2020-02-16 09:07] LABS: BASOPHILS ABSOLUTE AUTO 0.04 K/mm3 (0.00-0.23); BASOPHILS PERCENT AUTO 0 % (0-2); EOSINOPHILS ABSOLUTE AUTO 0.03 K/mm3 (0.00-0.68); EOSINOPHILS PERCENT AUTO 0 % (0-6); Hematocrit 23.3 % (33.0-51.0); Hemoglobin 7.4 g/dL (11.5-16.0); IMMATURE GRAN ABSOLUTE AUTO 0.05 K/mm3 (0.00-0.10); IMMATURE GRAN PERCENT AUTO 1 % (0-1); LYMPHOCYTES ABSOLUTE AUTO 1.26 K/mm3 (0.84-5.20); LYMPHOCYTES PERCENT AUTO 14 % (21-46); MONOCYTES ABSOLUTE AUTO 0.52 K/mm3 (0.16-1.47); MONOCYTES PERCENT AUTO 6 % (4-13); Mean Corpuscular HGB 31.8 pg (26.0-34.0); Mean Corpuscular HGB Conc 31.8 g/dL (31.5-36.5); Mean Corpuscular Volume 100 fL (80-100); NEUTROPHILS ABSOLUTE AUTO 7.44 K/mm3 (1.96-9.15); NEUTROPHILS PERCENT AUTO 80 % (41-73); Platelet Count 258 K/mm3 (150-400); RDW Coefficient Variation 18.8 % (11.7-14.2); RDW Standard Deviation 67.9 fL (35.1-46.3); Red Blood Cell Count 2.33 M/mm3 (3.80-5.20); White Blood Cell Count 9.34 K/mm3 (4.00-11.30)
[2020-02-16 09:31] LABS: Alanine Aminotransfer (ALT/SGP 21 U/L (12-78); Albumin, Blood 1.6 g/dL (3.4-5.0); Albumin/Globulin Ratio 0.4 (0.8-1.8); Alk Phos 305 U/L (50-136); Anion Gap 7 mmol/L (6-16); Aspartate Aminotrans (AST/SGOT 35 U/L (12-37); Bilirubin, Total 0.3 mg/dL (0.1-1.0); Blood Urea Nitrogen 3 mg/dL (8-24); Bun/Creatinine Ratio 8.6 (12.0-20.0); CO2, Blood 23 mmol/L (21-32); Calcium, Blood 7.3 mg/dL (8.5-10.1); Chloride, Blood 105 mmol/L (98-108); Creatinine, Blood 0.35 mg/dL (0.40-1.00); Globulin, Blood 4.3 g/dL (2.2-4.0); Glomerular Filtration Rate >60 (60-); Glucose, Blood 85 mg/dL (70-99); Sodium, Blood 135 mmol/L (136-145); Total Protein, Blood 5.9 g/dL (6.4-8.2); Troponin I <0.015 ng/mL (0.000-0.040)
[2020-02-16] MEDS ORDERED: POTA10T PO (10:46)
[2020-02-16] MEDS ORDERED: FURO20 PO (10:46)
== END 2020-02-16 11:48 | disposition home or self-care (01) ==
LOC: ER 08:31
PROVIDERS: Emergency Medicine
DX: E88.09 Other disorders of plasma-protein metabolism, not elsewhere classified (principal); E87.6 Hypokalemia; K74.60 Unspecified cirrhosis of liver; D53.9 Nutritional anemia, unspecified; F10.10 Alcohol abuse, uncomplicated; J44.9 Chronic obstructive pulmonary disease, unspecified; F32.9 Major depressive disorder, single episode, unspecified; F17.210 Nicotine dependence, cigarettes, uncomplicated; Z79.899 Other long term (current) drug therapy
CPT/HCPCS: 36415; 80053; 83880; 84484; 85025; 93005; 93010; 96374; 99284-25; A9270; J1940

== ENCOUNTER 2020-10-19 12:24 | Inpatient (IN) | payer MEDICARE ==
[~2020-10-19] VITALS: Ht 165.1 cm; Wt 46.3 kg
[~2020-10-19 12:24] MED LIST changes: +CEFU500T30 PO; +FURO20 PO; +POTA10T PO; +PRED20 PO
[2020-10-19 13:01] LABS: BASOPHILS ABSOLUTE AUTO 0.03 K/mm3 (0.00-0.23); BASOPHILS PERCENT AUTO 0 % (0-2); EOSINOPHILS ABSOLUTE AUTO 0.01 K/mm3 (0.00-0.68); EOSINOPHILS PERCENT AUTO 0 % (0-6); Hematocrit 31.1 % (33.0-51.0); Hemoglobin 9.9 g/dL (11.5-16.0); IMMATURE GRAN ABSOLUTE AUTO 0.03 K/mm3 (0.00-0.10); IMMATURE GRAN PERCENT AUTO 0 % (0-1); LYMPHOCYTES ABSOLUTE AUTO 1.84 K/mm3 (0.84-5.20); LYMPHOCYTES PERCENT AUTO 26 % (21-46); MONOCYTES ABSOLUTE AUTO 0.51 K/mm3 (0.16-1.47); MONOCYTES PERCENT AUTO 7 % (4-13); Mean Corpuscular HGB 27.5 pg (26.0-34.0); Mean Corpuscular HGB Conc 31.8 g/dL (31.5-36.5); Mean Corpuscular Volume 86 fL (80-100); Mean Platelet Volume 10.5 fL (9.1-12.4); NEUTROPHILS ABSOLUTE AUTO 4.79 K/mm3 (1.96-9.15); NEUTROPHILS PERCENT AUTO 67 % (41-73); Platelet Count 351 K/mm3 (150-400); RDW Coefficient Variation 19.9 % (11.7-14.2); RDW Standard Deviation 63.1 fL (35.1-46.3); White Blood Cell Count 7.21 K/mm3 (4.00-11.30)
[2020-10-19 13:15] LABS: Alanine Aminotransfer (ALT/SGP 34 U/L (12-78); Albumin, Blood 2.9 g/dL (3.4-5.0); Albumin/Globulin Ratio 0.7 (0.8-1.8); Alk Phos 373 U/L (50-136); Anion Gap 5 mmol/L (6-16); Aspartate Aminotrans (AST/SGOT 64 U/L (12-37); Bilirubin, Total 0.7 mg/dL (0.1-1.0); Blood Urea Nitrogen 6 mg/dL (8-24); Bun/Creatinine Ratio 9.4 (12.0-20.0); CO2, Blood 26 mmol/L (21-32); Calcium, Blood 8.1 mg/dL (8.5-10.1); Chloride, Blood 108 mmol/L (98-108); Creatinine, Blood 0.64 mg/dL (0.40-1.00); Globulin, Blood 4.1 g/dL (2.2-4.0); Glomerular Filtration Rate >60 (60-); Glucose, Blood 123 mg/dL (70-99); Potassium, Blood 3.9 mmol/L (3.5-5.5); Sodium, Blood 139 mmol/L (136-145)
[2020-10-19] MEDS ORDERED: ALEN70 PO (15:39)
[2020-10-19] MEDS ORDERED: LEVALBUTEROL TA15 G1 INH (20:01)
[2020-10-19] MEDS ORDERED: PROP10 PO (20:01)
[2020-10-19] MEDS ORDERED: FEROSUL325 M1 PO (20:01)
[2020-10-19] MEDS ORDERED: ZOLOFT50 MG PO (20:02)
--- NOTE | 2020-10-20 03:19 | NUR ---
SHIFT SUMMARY NO ACUTE CHANGES TO REPORT THIS SHIFT. PT ER ADMIT FOR CELLULITIS OF RLE, PT HAS A MEDIUM SIZED FLESH WOUND TO RLE AFTER TRIPPING OVER HER WALKER. PER ER REPORT WOUND HAD MAGGOTS IN IT THAT HAD TO BE RINSED OUT WITH SALINE WHILE IN THE ER. PT ALSO HAS SOME TUNNELING. PT ARRIVED TO THE UNIT, PICTURES TAKEN AND WOUND DRESSED, NO MAGGOTS ASSESSED. IV ANTIBIOTICS INFUSED ORDERED. PT A/OX4, PLESANT AND COOPERATIVE WITH CARE. VITALS STABLE. SURGICAL CONSULT IN PLACE. BED IN LOWEST POSITION, CALL LIGHT WITHIN REACH.
[2020-10-20 05:35] LABS: BASOPHILS ABSOLUTE AUTO 0.03 K/mm3 (0.00-0.23); BASOPHILS PERCENT AUTO 1 % (0-2); EOSINOPHILS ABSOLUTE AUTO 0.05 K/mm3 (0.00-0.68); EOSINOPHILS PERCENT AUTO 1 % (0-6); Hematocrit 27.5 % (33.0-51.0); Hemoglobin 8.7 g/dL (11.5-16.0); IMMATURE GRAN ABSOLUTE AUTO 0.01 K/mm3 (0.00-0.10); IMMATURE GRAN PERCENT AUTO 0 % (0-1); LYMPHOCYTES ABSOLUTE AUTO 1.68 K/mm3 (0.84-5.20); LYMPHOCYTES PERCENT AUTO 39 % (21-46); MONOCYTES ABSOLUTE AUTO 0.42 K/mm3 (0.16-1.47); MONOCYTES PERCENT AUTO 10 % (4-13); Mean Corpuscular HGB 27.3 pg (26.0-34.0); Mean Corpuscular HGB Conc 31.6 g/dL (31.5-36.5); Mean Corpuscular Volume 86 fL (80-100); Mean Platelet Volume 10.9 fL (9.1-12.4); NEUTROPHILS ABSOLUTE AUTO 2.12 K/mm3 (1.96-9.15); NEUTROPHILS PERCENT AUTO 49 % (41-73); Platelet Count 249 K/mm3 (150-400); RDW Coefficient Variation 19.4 % (11.7-14.2); RDW Standard Deviation 61.3 fL (35.1-46.3); Red Blood Cell Count 3.19 M/mm3 (3.80-5.20); White Blood Cell Count 4.31 K/mm3 (4.00-11.30)
[2020-10-20 05:54] LABS: Anion Gap 5 mmol/L (6-16); Blood Urea Nitrogen 5 mg/dL (8-24); Bun/Creatinine Ratio 9.7 (12.0-20.0); CO2, Blood 26 mmol/L (21-32); Calcium, Blood 7.8 mg/dL (8.5-10.1); Chloride, Blood 106 mmol/L (98-108); Creatinine, Blood 0.52 mg/dL (0.40-1.00); Glomerular Filtration Rate >60 (60-); Glucose, Blood 74 mg/dL (70-99); Potassium, Blood 3.4 mmol/L (3.5-5.5); Sodium, Blood 137 mmol/L (136-145)
--- NOTE | 2020-10-20 18:22 | NUR ---
SHIFT SUMMARY- PT IS A/O, PLESANT AND COOPERATIVE. SHE IS EATING AND DRINKING WELL. DR. SANCHEZ SAW THE PT THIS AFTERNOON AND PUT A WOUND VAC ON THE PT. SHE WILL BE NPO AFTER MIDNIGHT, DR. SANCHEZ WILL REEVALUATE TOMORROW. SHE SLEPT INTERMITENTLY THROUGHOUT THIS SHIFT. SHE HAD LOOSE STOOLS. PROBIOTICS ADDED. SHE IS RECIEVING IV ABX AND IS TOLERATING WELL. HER BED IS IN THE LOW POSITION AND CALL LIGHT IS WITHIN REACH.
--- NOTE | 2020-10-21 04:25 | NUR ---
SHIFT SUMMARY NO ACUTE CHANGES TO REPORT THIS. PT HAS WOUND VAC IN PLACE TO R [place], NO DRAINAGE FROM WOUND VAC. PT HAS PAIN IN RLE AT THE START OF THE SHIFT THAT IS RELIEVED WITH TYLENOL. IV ANTIBIOTICS CONTINUED ORDERED. PLAN IS FOR POSSIBLE I&D TODAY. PT HAS BEEN NPO SINCE MIDNIGHT. A/OX4, PLESANT AND COOPERATIVE WITH CARE.
[2020-10-21 08:29] LABS: Hematocrit 26.9 % (33.0-51.0); Hemoglobin 8.5 g/dL (11.5-16.0)
[2020-10-21 08:46] LABS: Anion Gap 7 mmol/L (6-16); Blood Urea Nitrogen 6 mg/dL (8-24); Bun/Creatinine Ratio 11.9 (12.0-20.0); CO2, Blood 24 mmol/L (21-32); Calcium, Blood 7.5 mg/dL (8.5-10.1); Chloride, Blood 105 mmol/L (98-108); Glomerular Filtration Rate >60 (60-); Glucose, Blood 91 mg/dL (70-99); Potassium, Blood 3.9 mmol/L (3.5-5.5); Sodium, Blood 136 mmol/L (136-145)
[2020-10-22 05:12] LABS: Hemoglobin 8.3 g/dL (11.5-16.0); Mean Corpuscular HGB 27.7 pg (26.0-34.0); Mean Corpuscular HGB Conc 31.9 g/dL (31.5-36.5); Mean Corpuscular Volume 87 fL (80-100); Mean Platelet Volume 11.3 fL (9.1-12.4); Platelet Count 169 K/mm3 (150-400); RDW Coefficient Variation 19.1 % (11.7-14.2); RDW Standard Deviation 59.9 fL (35.1-46.3); White Blood Cell Count 4.24 K/mm3 (4.00-11.30)
--- NOTE | 2020-10-22 05:17 | NUR ---
SHIFT SUMMARY A/O, ABLE TO MAKE NEEDS KNOWN. COOPERATIVE WITH CARES. CALLS AND ANSWERS QUESTIONS APPROPRIATELY. NO C/O PAIN/DISCOMFORT. WOUND VAC TO SUCTION; NO DRAINAGE NOTED. INDEPENDENT TO BATHROOM; ASSISTANCE NEEDED WITH WOUND VAC. NPO /p 0000 FOR POTENTIAL I/D 10/22. APPEARED TO REST MUCH OF THE NIGHT. ABX INFUSED WITHOUT COMPLICATION. VSS/AFEBRILE. BED REMAINS IN LOWEST POSITION. CALL LIGHT AND BELONGINGS WITHIN REACH. CONTINUE WITH CURRENT PLAN OF CARE. REPORT TO ONCOMING RN.
[2020-10-22 05:51] LABS: Anion Gap 7 mmol/L (6-16); Blood Urea Nitrogen 8 mg/dL (8-24); Bun/Creatinine Ratio 12.3 (12.0-20.0); CO2, Blood 22 mmol/L (21-32); Calcium, Blood 7.6 mg/dL (8.5-10.1); Chloride, Blood 104 mmol/L (98-108); Creatinine, Blood 0.65 mg/dL (0.40-1.00); Ferritin, Serum 51 ng/mL (8-252); Glomerular Filtration Rate >60 (60-); Glucose, Blood 98 mg/dL (70-99); Iron Serum 18 ug/dL (50-170); Percent Saturation 6.5 % (15.0-50.0); Sodium, Blood 133 mmol/L (136-145); Total Iron Binding Capacity 275 ug/dL (250-450)
[2020-10-22 10:24] LABS: SARS-Cov-2 (COVID-19) PCR, MMC NEGATIVE (NEGATIVE)
--- NOTE | 2020-10-22 14:22 | NUR ---
ALERTED OR AND PACU ABOUT MRSA.Patient up to Ambulate independently. Gait steady. History, Chart, Medications and Allergies reviewed before start of procedure.Lungs clear T/O to Auscultation. Patient confirms NPO status and agrees with scheduled surgery. DENTURES LEFT IN THE ROOOM WITH ALL BELONINGS.
--- NOTE | 2020-10-22 14:53 | NUR ---
10/22/20 1453 DANANATANAEL FERRELL PT RECEIVED SCHEDULED ANTIBIOTICS PRIOR TO PROCEDURE PER ORDERS.
--- NOTE | 2020-10-23 06:16 | NUR ---
SHIFT SUMMARY PATIENT ALERT AND ORIENTED. WAS MEDICATED PER EMAR FOR PAIN. NO COMPLAINTS OF CHEST PAIN OR SHORTNESS OF BREATH. PATIENT SLEPT WELL OVERNIGHT. WOUND VAC IN PLACE AND DRAINING. IV PATENT AND INFUSING. BED IN LOWEST POSITION WITH WHEELS LOCKED. CALL LIGHT WITHIN REACH. REPORT GIVEN TO ONCOMING RN.
[2020-10-23 07:02] LABS: BASOPHILS ABSOLUTE AUTO 0.01 K/mm3 (0.00-0.23); BASOPHILS PERCENT AUTO 0 % (0-2); EOSINOPHILS PERCENT AUTO 0 % (0-6); Hematocrit 23.1 % (33.0-51.0); Hemoglobin 7.3 g/dL (11.5-16.0); IMMATURE GRAN ABSOLUTE AUTO 0.02 K/mm3 (0.00-0.10); IMMATURE GRAN PERCENT AUTO 0 % (0-1); LYMPHOCYTES ABSOLUTE AUTO 1.17 K/mm3 (0.84-5.20); LYMPHOCYTES PERCENT AUTO 22 % (21-46); MONOCYTES ABSOLUTE AUTO 0.28 K/mm3 (0.16-1.47); MONOCYTES PERCENT AUTO 5 % (4-13); Mean Corpuscular HGB 27.9 pg (26.0-34.0); Mean Corpuscular HGB Conc 31.6 g/dL (31.5-36.5); Mean Corpuscular Volume 88 fL (80-100); Mean Platelet Volume 11.7 fL (9.1-12.4); NEUTROPHILS ABSOLUTE AUTO 3.77 K/mm3 (1.96-9.15); NEUTROPHILS PERCENT AUTO 72 % (41-73); Platelet Count 162 K/mm3 (150-400); RDW Coefficient Variation 19.1 % (11.7-14.2); RDW Standard Deviation 62.4 fL (35.1-46.3); Red Blood Cell Count 2.62 M/mm3 (3.80-5.20); White Blood Cell Count 5.25 K/mm3 (4.00-11.30)
[2020-10-23 07:18] LABS: Vancomycin, Random 4.5 ug/mL
[2020-10-23] MEDS ORDERED: DOXY100 PO (16:44)
--- NOTE | 2020-10-23 17:14 | NUR ---
PT DISCHAGED WITH HOME HEALTH FOR WOUND VAC MANAGEMENT. IV DC'D. NO ISSUES OR CONCERNS NOTED. PT WENT HOME WITH WOUND VAC SUPPLIES AND HOME WOUND VAC. MEDICATION FAXED TO PHARMACY. PT GIVEN EDUCATION PACKETS WITH MEDICATION LIST. PT EDUCATED AND AWARE. PT WILL FU TO PCP NEEDED AND WILL FU INSTRUCTIONS BY DR CANDELARIO. PT ALSO GIVEN DR CANDELARIO CONTACT FOR FU CONCERNS.
== END 2020-10-23 17:00 | disposition home or self-care (01) | DRG 572 ==
LOC: ER 12:24 → MEDS 21:21
PROVIDERS: Internal Medicine; Orthopaedic Surgery; Physician Assistant; ADMIT Family Medicine
PROC: 0JBN0ZZ Excision of Right Lower Leg Subcutaneous Tissue and Fascia, Open Approach (ICD-10-PCS; principal; 2020-10-22 14:00)
DX: L03.115 Cellulitis of right lower limb (principal); S81.811A Laceration without foreign body, right lower leg, initial encounter; E87.6 Hypokalemia; B95.62 Methicillin resistant Staphylococcus aureus infection as the cause of diseases classified elsewhere; Z20.822 Contact with and (suspected) exposure to COVID-19; G62.9 Polyneuropathy, unspecified; F32.9 Major depressive disorder, single episode, unspecified; D64.9 Anemia, unspecified; J44.9 Chronic obstructive pulmonary disease, unspecified; F17.210 Nicotine dependence, cigarettes, uncomplicated; Z79.899 Other long term (current) drug therapy; Z79.52 Long term (current) use of systemic steroids; Z71.6 Tobacco abuse counseling; Z98.890 Other specified postprocedural states; W18.40XA Slipping, tripping and stumbling without falling, unspecified, initial encounter
CPT/HCPCS: 36415; 73701; 80048; 80053; 80202; 82728; 83540; 83550; 83690; 85014; 85018; 85025; 85027; 87040; 87070; 87075; 87077; 87147; 87186; 87205; 96365-59; 99285-25; A9270; J0690; J0692; J1100; J1650; J2250; J2370; J2405; J2704; J2916; J3010; J3370; J7030; J7050; J7120; Q9967; U0004

== ENCOUNTER → 2020-10-31 | Outpatient (CLI) | payer MEDICARE ==
[~2020-10-31] MED LIST changes: +DOXY100 PO; +FEROSUL325 M1 PO; +LEVALBUTEROL TA15 G1 INH; +OMEP20ER PO; +PROP10 PO; +Percocet 5-3251 EACH PO; +SENN187 PO; +ZOLOFT50 MG PO
[2020-10-31 20:00] LABS: BASOPHILS ABSOLUTE AUTO 0.05 K/mm3 (0.00-0.23); BASOPHILS PERCENT AUTO 1 % (0-2); EOSINOPHILS ABSOLUTE AUTO 0.06 K/mm3 (0.00-0.68); EOSINOPHILS PERCENT AUTO 1 % (0-6); Hematocrit 27.7 % (33.0-51.0); Hemoglobin 8.6 g/dL (11.5-16.0); IMMATURE GRAN ABSOLUTE AUTO 0.02 K/mm3 (0.00-0.10); IMMATURE GRAN PERCENT AUTO 0 % (0-1); LYMPHOCYTES ABSOLUTE AUTO 2.24 K/mm3 (0.84-5.20); LYMPHOCYTES PERCENT AUTO 32 % (21-46); MONOCYTES ABSOLUTE AUTO 0.47 K/mm3 (0.16-1.47); MONOCYTES PERCENT AUTO 7 % (4-13); Mean Corpuscular HGB 28.2 pg (26.0-34.0); Mean Corpuscular Volume 91 fL (80-100); Mean Platelet Volume 11.9 fL (9.1-12.4); NEUTROPHILS ABSOLUTE AUTO 4.07 K/mm3 (1.96-9.15); NEUTROPHILS PERCENT AUTO 59 % (41-73); Platelet Count 220 K/mm3 (150-400); RDW Standard Deviation 69.6 fL (35.1-46.3); Red Blood Cell Count 3.05 M/mm3 (3.80-5.20); White Blood Cell Count 6.91 K/mm3 (4.00-11.30)
[2020-10-31 20:09] LABS: Anion Gap 6 mmol/L (6-16); Blood Urea Nitrogen 7 mg/dL (8-24); Bun/Creatinine Ratio 12.5 (12.0-20.0); CO2, Blood 25 mmol/L (21-32); Calcium, Blood 8.4 mg/dL (8.5-10.1); Chloride, Blood 107 mmol/L (98-108); Creatinine, Blood 0.56 mg/dL (0.40-1.00); Glomerular Filtration Rate >60 (60-); Glucose, Blood 63 mg/dL (70-99); Sodium, Blood 138 mmol/L (136-145)
== END ==
LOC: LAB 19:41 → LAB SHORT 19:41
PROVIDERS: Nurse Practitioner Family
DX: D50.8 Other iron deficiency anemias (principal); D64.9 Anemia, unspecified
CPT/HCPCS: 80048; 85025

== ENCOUNTER 2020-11-08 09:54 | Inpatient (IN) | payer MEDICARE ==
[~2020-11-08] VITALS: Ht 160 cm; Wt 50.1 kg
[~2020-11-08 09:54] MED LIST changes: -OMEP20ER PO; -Percocet 5-3251 EACH PO; -SENN187 PO
[2020-11-08 11:36] LABS: BASOPHILS ABSOLUTE AUTO 0.02 K/mm3 (0.00-0.23); BASOPHILS PERCENT AUTO 0 % (0-2); EOSINOPHILS ABSOLUTE AUTO 0.04 K/mm3 (0.00-0.68); EOSINOPHILS PERCENT AUTO 1 % (0-6); Hematocrit 31.6 % (33.0-51.0); Hemoglobin 10.1 g/dL (11.5-16.0); IMMATURE GRAN ABSOLUTE AUTO 0.04 K/mm3 (0.00-0.10); IMMATURE GRAN PERCENT AUTO 1 % (0-1); LYMPHOCYTES ABSOLUTE AUTO 1.46 K/mm3 (0.84-5.20); LYMPHOCYTES PERCENT AUTO 17 % (21-46); MONOCYTES PERCENT AUTO 7 % (4-13); Mean Corpuscular HGB 28.9 pg (26.0-34.0); Mean Corpuscular Volume 90 fL (80-100); Mean Platelet Volume 11.9 fL (9.1-12.4); NEUTROPHILS ABSOLUTE AUTO 6.53 K/mm3 (1.96-9.15); NEUTROPHILS PERCENT AUTO 75 % (41-73); Platelet Count 193 K/mm3 (150-400); RDW Coefficient Variation 20.5 % (11.7-14.2); White Blood Cell Count 8.69 K/mm3 (4.00-11.30)
[2020-11-08] MEDS ORDERED: OMEP20ER PO (11:43)
[2020-11-08 11:47] LABS: Alanine Aminotransfer (ALT/SGP 19 U/L (12-78); Albumin, Blood 2.7 g/dL (3.4-5.0); Albumin/Globulin Ratio 0.7 (0.8-1.8); Alk Phos 197 U/L (50-136); Anion Gap 6 mmol/L (6-16); Aspartate Aminotrans (AST/SGOT 16 U/L (12-37); Bilirubin, Total 0.5 mg/dL (0.1-1.0); Blood Urea Nitrogen 11 mg/dL (8-24); Bun/Creatinine Ratio 20.8 (12.0-20.0); CO2, Blood 25 mmol/L (21-32); Calcium, Blood 7.8 mg/dL (8.5-10.1); Chloride, Blood 106 mmol/L (98-108); Creatinine, Blood 0.53 mg/dL (0.40-1.00); Globulin, Blood 3.8 g/dL (2.2-4.0); Glomerular Filtration Rate >60 (60-); Glucose, Blood 117 mg/dL (70-99); Potassium, Blood 3.7 mmol/L (3.5-5.5); Sodium, Blood 137 mmol/L (136-145); Total Protein, Blood 6.5 g/dL (6.4-8.2)
[2020-11-08 12:16] LABS: International Normalized Ratio 1.11; Prothrombin Time Results 11.9 Sec (9.7-11.5)
[2020-11-08 12:48] LABS: SARS-Cov-2 (COVID-19) PCR, MMC NEGATIVE (NEGATIVE)
--- NOTE | 2020-11-08 13:37 | NUR ---
History, Chart, Medications and Allergies reviewed before start of procedure.Lungs clear T/O to Auscultation. Patient confirms NPO status and agrees with scheduled surgery. Pre-Op teaching done. Pt verbalizes understanding. PAS NOT APPLIED DUE TO WOUND VAC ON RIGHT LEG. PATIENT INCONTINENT OF STOOL, CHANGING BEDDING NEEDED. BELONGINGS (INCLUDING PHONE AND PURSE) PLACED UNDER PATIENT BED.
--- NOTE | 2020-11-08 16:48 | NUR ---
DR WOLFE AWARE OF TRIGEMENY NO NEW ORDERS PT HAS NO COMPLAINT
--- NOTE | 2020-11-08 17:40 | NUR ---
PATIENT CAME BACK FROM PACU TODAY 11/08/20 AT 1711. POD 0 LEFT HIP REPAIR SHE IS ALERT AND ORIENTED X4. VS ARE WNL AND IS ON 2L OXYGEN. PAIN IS CONTROLLED FOR NOW BUT HAS PRN PAIN MEDICATIONS ON EMAR. LEFT HIP HAS 2 AQUACELS THAT ARE C/D/I. PATIENT REPORTS SOME NUMBNESS IN FEET BUT IS ABLE TO WIGGLE FINGERS AND TOES. WOUND VAC ON PUTNAM IS FROM A DIFFERENT FALL. FOAM IS COMPRESSED AND SUCTIONING OUTPUT. FRAZIER IS PATENT AND DRAINING OUTPUT INTO FRAZIER BAG WITH NO KINKS IN TUBING. SHE IS LAYING IN BED DRINKING WATER AND EATING SOME CRACKERS. CALL LIGHT IS WITHIN REACH.
[2020-11-09 04:33] LABS: BASOPHILS ABSOLUTE AUTO 0.02 K/mm3 (0.00-0.23); BASOPHILS PERCENT AUTO 0 % (0-2); EOSINOPHILS PERCENT AUTO 0 % (0-6); Hematocrit 21.5 % (33.0-51.0); Hemoglobin 6.9 g/dL (11.5-16.0); IMMATURE GRAN ABSOLUTE AUTO 0.02 K/mm3 (0.00-0.10); IMMATURE GRAN PERCENT AUTO 0 % (0-1); LYMPHOCYTES ABSOLUTE AUTO 1.87 K/mm3 (0.84-5.20); LYMPHOCYTES PERCENT AUTO 19 % (21-46); MONOCYTES ABSOLUTE AUTO 0.98 K/mm3 (0.16-1.47); MONOCYTES PERCENT AUTO 10 % (4-13); Mean Corpuscular HGB 29.4 pg (26.0-34.0); Mean Corpuscular HGB Conc 32.1 g/dL (31.5-36.5); Mean Corpuscular Volume 92 fL (80-100); Mean Platelet Volume 11.8 fL (9.1-12.4); NEUTROPHILS ABSOLUTE AUTO 7.11 K/mm3 (1.96-9.15); NEUTROPHILS PERCENT AUTO 71 % (41-73); Platelet Count 148 K/mm3 (150-400); RDW Coefficient Variation 20.1 % (11.7-14.2); RDW Standard Deviation 67.9 fL (35.1-46.3); Red Blood Cell Count 2.35 M/mm3 (3.80-5.20)
--- NOTE | 2020-11-09 06:25 | NUR ---
SHIFT SUMMARY POD1 L HIP FIXATION. PT HAS 2 AQUACEL DRESSING ON CDI WITH NICKEL SIZE DRAINAGE. PT REPORT N/T ON BLE LAST NIGHT. IT HAS IMPROVED THIS MORNING. FRAZIER CATH INTACT, GRAVITY ON FLOOR AND PATENT. PT TOLERATING PO INTAKE DENIES N/V. BP HAS BEEN LOW, HELP PROPANOLOL LAST NIGHT. PT REMAIN HYPOTENSIVE BUT ASYMPTOMATIC. PT DENIES CP, SOB, DIZZINESS, SWEATS, AND CHILLS. CALLED HOSPITALIST DR. VILLAVICENCIO LAST NIGHT, AN ORDER OF BOLUS FLUIDS WAS ADMINSTERED TO PATIENT. BP SLIGHTLY IMPROVED. ENC PATIENT TO HYDRATE AND DRINK MORE WATER. THIS MORNING, LABS CAME BACK AND HER HGB WAS 6.9. CALLED HOSPITALIST, DR. DELONG, AN ORDER OF 1 UNIT OF BLOOD WAS PUT. LAB CAME DOWN TO DRAW BLOOD. PT REPORT PAIN 5/10, PAIN MANAGED WITH 1 OXY. SHE IS CURRENTLY SLEEPING IN BED, CALL LIGHT WITHIN REACH. WILL PROVIDE REPORT TO ONCOMING NURSE.
--- NOTE | 2020-11-09 11:05 | NUR ---
1 UNIT PRBC TRANSFUSION STARTED AT ABOUT 0800. PT TOLERATING WELL, WILL CTM
[2020-11-09 14:35] LABS: Hematocrit 25.7 % (33.0-51.0); Hemoglobin 8.3 g/dL (11.5-16.0); Mean Corpuscular HGB 29.4 pg (26.0-34.0); Mean Corpuscular HGB Conc 32.3 g/dL (31.5-36.5); Mean Corpuscular Volume 91 fL (80-100); Mean Platelet Volume 11.9 fL (9.1-12.4); Platelet Count 134 K/mm3 (150-400); RDW Coefficient Variation 19.3 % (11.7-14.2); RDW Standard Deviation 65.1 fL (35.1-46.3); Red Blood Cell Count 2.82 M/mm3 (3.80-5.20); White Blood Cell Count 7.52 K/mm3 (4.00-11.30)
--- NOTE | 2020-11-09 15:25 | NUR ---
SUMMARY: PT IS POD1 L HIP REPAIR. A/O, VSS. SURGICAL SITE WNL AND CHRONIC HOME WOUND VAC COMPRESSED TO R PUTNAM. FOLLOWING BLOOD TRANSFUSION PT ABLE TO AMBULATE TO RECLINER WITH 1 ASSIST AND FWW, PT TOLERATED WELL, DENIED ANY DIZZINESS. PT DID NOT WORK WITH THERAPY EARLIER IN THE DAY DUE TO LOW BP AND BLOOD TRANSFUSION. PT REPORTS PAIN 6/10, MEDICATIONS GIVEN, WILL CTM. NO SAFETY CONCERNS. PLAN WILL BE DC TO SNF. WILL PASS REPORT TO TARAS RN
[2020-11-10 04:07] LABS: BASOPHILS ABSOLUTE AUTO 0.03 K/mm3 (0.00-0.23); BASOPHILS PERCENT AUTO 1 % (0-2); EOSINOPHILS ABSOLUTE AUTO 0.08 K/mm3 (0.00-0.68); EOSINOPHILS PERCENT AUTO 2 % (0-6); Hematocrit 24.9 % (33.0-51.0); IMMATURE GRAN ABSOLUTE AUTO 0.01 K/mm3 (0.00-0.10); IMMATURE GRAN PERCENT AUTO 0 % (0-1); LYMPHOCYTES ABSOLUTE AUTO 1.55 K/mm3 (0.84-5.20); LYMPHOCYTES PERCENT AUTO 30 % (21-46); MONOCYTES ABSOLUTE AUTO 0.45 K/mm3 (0.16-1.47); MONOCYTES PERCENT AUTO 9 % (4-13); Mean Corpuscular HGB 29.1 pg (26.0-34.0); Mean Corpuscular HGB Conc 32.1 g/dL (31.5-36.5); Mean Corpuscular Volume 91 fL (80-100); Mean Platelet Volume 11.4 fL (9.1-12.4); NEUTROPHILS ABSOLUTE AUTO 2.98 K/mm3 (1.96-9.15); NEUTROPHILS PERCENT AUTO 58 % (41-73); Platelet Count 119 K/mm3 (150-400); RDW Coefficient Variation 19.4 % (11.7-14.2); RDW Standard Deviation 63.9 fL (35.1-46.3); Red Blood Cell Count 2.75 M/mm3 (3.80-5.20)
[2020-11-10 04:20] LABS: Anion Gap 3 mmol/L (6-16); Blood Urea Nitrogen 8 mg/dL (8-24); Bun/Creatinine Ratio 14.2 (12.0-20.0); CO2, Blood 26 mmol/L (21-32); Calcium, Blood 7.3 mg/dL (8.5-10.1); Chloride, Blood 106 mmol/L (98-108); Creatinine, Blood 0.56 mg/dL (0.40-1.00); Glomerular Filtration Rate >60 (60-); Glucose, Blood 103 mg/dL (70-99); Potassium, Blood 4.6 mmol/L (3.5-5.5); Sodium, Blood 135 mmol/L (136-145)
--- NOTE | 2020-11-10 06:01 | NUR ---
SHIFT SUMMARY POD2 L HIP FIXATION, A/O X4, VSS, EATING, VOIDING VIA FRAZIER WHICH WAS REMOVED THIS AM, NO POST REMAL VOID OF THIS NOTE, WILL PASS ON TO DAY IF NONE BY SHIFT CHANGE, AMBULATES W/ ASSISTANCE, DOES WELL W/ FOLLOING TTWB STATUS, PAIN MANAGED PER EMAR. NO ACUTE EVENTS THIS SHIFT, WILL CTM AND REPORT TO DAY RN.
--- NOTE | 2020-11-10 17:03 | NUR ---
SHIFT SUMMARY PATIENT ALERT AND ORIENTED THROUGHOUT SHIFT. 1 PERSON MOD ASSIST TO BATHROOM WITH FWW AND GAIT BELT. LEFT HIP WITH AQUACELS IN PLACE, CHANGED BY ORTHO THIS SHIFT. PAIN CONTROLLED WITH PO PAIN MEDS. WOUND VAC TO RIGHT PUTNAM INTACT. TOLERATING REGULAR DIET. FREDDIE TREVIÑO THIS AM, VOIDING WELL. WORKED WELL WITH PHYSICAL THERAPY THIS SHIFT. PLAN FOR DISCHARGE TO SNF VS HOME HEALTH. WILL REPORT TO JUDICIAL CLERK RN.
[2020-11-11 04:11] LABS: BASOPHILS ABSOLUTE AUTO 0.03 K/mm3 (0.00-0.23); BASOPHILS PERCENT AUTO 1 % (0-2); EOSINOPHILS ABSOLUTE AUTO 0.09 K/mm3 (0.00-0.68); EOSINOPHILS PERCENT AUTO 2 % (0-6); Hematocrit 24.7 % (33.0-51.0); Hemoglobin 7.9 g/dL (11.5-16.0); IMMATURE GRAN ABSOLUTE AUTO 0.02 K/mm3 (0.00-0.10); IMMATURE GRAN PERCENT AUTO 0 % (0-1); LYMPHOCYTES ABSOLUTE AUTO 1.76 K/mm3 (0.84-5.20); LYMPHOCYTES PERCENT AUTO 31 % (21-46); MONOCYTES ABSOLUTE AUTO 0.54 K/mm3 (0.16-1.47); MONOCYTES PERCENT AUTO 10 % (4-13); Mean Corpuscular Volume 91 fL (80-100); Mean Platelet Volume 11.5 fL (9.1-12.4); NEUTROPHILS ABSOLUTE AUTO 3.27 K/mm3 (1.96-9.15); NEUTROPHILS PERCENT AUTO 57 % (41-73); Platelet Count 142 K/mm3 (150-400); RDW Coefficient Variation 18.9 % (11.7-14.2); RDW Standard Deviation 63.4 fL (35.1-46.3); Red Blood Cell Count 2.72 M/mm3 (3.80-5.20); White Blood Cell Count 5.71 K/mm3 (4.00-11.30)
[2020-11-11 04:32] LABS: Anion Gap 2 mmol/L (6-16); Blood Urea Nitrogen 10 mg/dL (8-24); Bun/Creatinine Ratio 18.9 (12.0-20.0); CO2, Blood 28 mmol/L (21-32); Calcium, Blood 7.6 mg/dL (8.5-10.1); Chloride, Blood 103 mmol/L (98-108); Creatinine, Blood 0.53 mg/dL (0.40-1.00); Glomerular Filtration Rate >60 (60-); Glucose, Blood 99 mg/dL (70-99); Potassium, Blood 4.2 mmol/L (3.5-5.5); Sodium, Blood 133 mmol/L (136-145)
--- NOTE | 2020-11-11 05:06 | NUR ---
SHIFT SUMMARY POD3 L HIP FIXATION, A/O X4, VSS, EATING/AMBULATING/VOIDING/BM THIS SHIFT, PAIN WELL MANAGED PER EMAR, NO ACUTE EVENTS THIS SHIFT. CALL LIGHT IN REACH, WILL CTM AND REPORT TO ONCOMING DAY RN.
--- NOTE | 2020-11-11 17:10 | NUR ---
SHIFT SUMMARY PT A&OX4, VSS, POD3 L HIP REPAIR, 2 AQUACEL DRY/INTACT, TTWB, AMBULATING WITH FWW/SBA; AMB TO BRP, UP TO CHAIR. PAIN MANAGED WITH 5 MG PERC. ROBERT PO. WILL REPORT TO TARAS BENSON.
--- NOTE | 2020-11-12 04:37 | NUR ---
SHIFT SUMMARY: PT POD#3 L HIP FIXATION. PAIN BEING MANAGED WITH PERCOCET PER EMAR. PT OUT OF BED TO BATHROOM SEVERAL TIMES WITH 1 SBA AND FWW. TTWB. TOLERATING ACITIVTY WELL. WOUND VAC INTACT AND COMPRESSED TO RT PUTNAM. PLAN FOR PT/OT AND POSSIBLE DISCHARGE HOME TODAY.
[2020-11-12] MEDS ORDERED: SENN187 PO (11:55)
[2020-11-12] MEDS ORDERED: Percocet 5-3251 EACH PO (11:56)
--- NOTE | 2020-11-12 13:42 | NUR ---
DISCHARGE SUMMARY PT A&OX4, VSS, LEFT FLOOR VIA WC WITH SNRN, TO GO HOME WITH FRIEND, WITH ALL PERSONAL POSSESSIONS INCLUDING DC PACKET AND EXTRA DRESSINGS. DRESSINGS CHANGED TODAY PRIOR TO DEPARTURE. DC INSTRUCTIONS PROVIDED. PT REP UNDERSTANDING THOSE INSTRUCTIONS INCLUDING FU WITH SURGEON, FU WITH PCP, WHEN/HOW TO CHANGE DRESSINGS, PAIN MANAGEMENT, SHORT FREQUENT WALKS TTWB WITH FWW, REST PERIODS WITH BLE ELEVATED. IV DC'D.
== END 2020-11-12 14:00 | disposition home health service (06) | DRG 481 ==
LOC: ER 09:54 → SURS 12:15
PROVIDERS: Orthopaedic Surgery; Physician Assistant; ADMIT Family Medicine
PROC: 0QH736Z Insertion of Intramedullary Internal Fixation Device into Left Upper Femur, Percutaneous Approach (ICD-10-PCS; principal; 2020-11-08 14:45)
PROC: 30233N1 Transfusion of Nonautologous Red Blood Cells into Peripheral Vein, Percutaneous Approach (ICD-10-PCS; 2020-11-09)
DX: S72.142A Displaced intertrochanteric fracture of left femur, initial encounter for closed fracture (principal); D62 Acute posthemorrhagic anemia; L03.115 Cellulitis of right lower limb; W18.30XA Fall on same level, unspecified, initial encounter; F32.9 Major depressive disorder, single episode, unspecified; J44.9 Chronic obstructive pulmonary disease, unspecified; I10 Essential (primary) hypertension; F17.210 Nicotine dependence, cigarettes, uncomplicated; Z20.822 Contact with and (suspected) exposure to COVID-19; K21.9 Gastro-esophageal reflux disease without esophagitis; M81.0 Age-related osteoporosis without current pathological fracture; K70.30 Alcoholic cirrhosis of liver without ascites; D69.59 Other secondary thrombocytopenia; F10.10 Alcohol abuse, uncomplicated; Z98.890 Other specified postprocedural states; Y92.009 Unspecified place in unspecified non-institutional (private) residence as the place of occurrence of the external cause; Z79.83 Long term (current) use of bisphosphonates; Z79.899 Other long term (current) drug therapy; Z86.14 Personal history of Methicillin resistant Staphylococcus aureus infection
CPT/HCPCS: 36415; 36430; 51702; 71045; 73502; 80048; 80053; 82550; 85025; 85027; 85610; 86850; 86900; 86901; 86923; 93005; 93010; 94760; 96374-59; 96375-59; 97110; 97116; 97166; 97530; 97535; 99285-25; A9270; C1713; C1769; J1100; J1170; J1650; J1885; J2370; J2405; J2704; J3010; J3370; J7040; J7120; P9016; U0004

== ENCOUNTER 2020-11-28 20:29 | Emergency (ER) | payer MEDICARE ==
[~2020-11-28] VITALS: Ht 165.1 cm; Wt 54.4 kg
[~2020-11-28 20:29] MED LIST changes: +OMEP20ER PO; +Percocet 5-3251 EACH PO; +SENN187 PO
== END 2020-11-29 01:30 | disposition home or self-care (01) ==
LOC: ER 20:29
DX: M79.605 Pain in left leg (principal); J44.9 Chronic obstructive pulmonary disease, unspecified; I10 Essential (primary) hypertension; F17.210 Nicotine dependence, cigarettes, uncomplicated; Z79.899 Other long term (current) drug therapy
CPT/HCPCS: 93971; 99283-25; A9270

== ENCOUNTER → 2021-01-14 | Outpatient (CLI) | payer MEDICARE ==
[2021-01-14 19:42] LABS: BASOPHILS ABSOLUTE AUTO 0.03 K/mm3 (0.00-0.23); BASOPHILS PERCENT AUTO 0 % (0-2); EOSINOPHILS ABSOLUTE AUTO 0.11 K/mm3 (0.00-0.68); EOSINOPHILS PERCENT AUTO 1 % (0-6); Hematocrit 36.2 % (33.0-51.0); Hemoglobin 12.1 g/dL (11.5-16.0); IMMATURE GRAN ABSOLUTE AUTO 0.04 K/mm3 (0.00-0.10); IMMATURE GRAN PERCENT AUTO 1 % (0-1); LYMPHOCYTES ABSOLUTE AUTO 1.96 K/mm3 (0.84-5.20); LYMPHOCYTES PERCENT AUTO 24 % (21-46); MONOCYTES ABSOLUTE AUTO 0.34 K/mm3 (0.16-1.47); MONOCYTES PERCENT AUTO 4 % (4-13); Mean Corpuscular HGB 31.3 pg (26.0-34.0); Mean Corpuscular HGB Conc 33.4 g/dL (31.5-36.5); Mean Corpuscular Volume 94 fL (80-100); NEUTROPHILS ABSOLUTE AUTO 5.55 K/mm3 (1.96-9.15); NEUTROPHILS PERCENT AUTO 69 % (41-73); Platelet Count 125 K/mm3 (150-400); RDW Coefficient Variation 15.8 % (11.7-14.2); RDW Standard Deviation 53.1 fL (35.1-46.3); Red Blood Cell Count 3.86 M/mm3 (3.80-5.20); White Blood Cell Count 8.03 K/mm3 (4.00-11.30)
[2021-01-14 19:44] LABS: Mean Platelet Volume 13.2 fL (9.1-12.4)
[2021-01-14 20:06] LABS: Anion Gap 6 mmol/L (6-16); Blood Urea Nitrogen 7 mg/dL (8-24); CO2, Blood 23 mmol/L (21-32); Calcium, Blood 7.9 mg/dL (8.5-10.1); Chloride, Blood 107 mmol/L (98-108); Creatinine, Blood 0.58 mg/dL (0.40-1.00); Glomerular Filtration Rate >60 (60-); Glucose, Blood 87 mg/dL (70-99); Potassium, Blood 3.7 mmol/L (3.5-5.5); Sodium, Blood 136 mmol/L (136-145)
== END | disposition home or self-care (01) ==
LOC: LAB 17:59 → LAB SHORT 17:59
PROVIDERS: Nurse Practitioner Family
DX: D50.8 Other iron deficiency anemias (principal)
CPT/HCPCS: 80048; 85025

== ENCOUNTER 2022-01-11 16:06 | Inpatient (IN) | payer OTHER ==
[~2022-01-11] VITALS: Ht 165.1 cm; Wt 52.9 kg
[~2022-01-11 16:06] MED LIST changes: +ALBU90OI INH; +LOPE2C PO
[2022-01-11 17:30] LABS: BASOPHILS ABSOLUTE AUTO 0.02 K/mm3 (0.00-0.23); BASOPHILS PERCENT AUTO 0 % (0-2); EOSINOPHILS ABSOLUTE AUTO 0.02 K/mm3 (0.00-0.68); EOSINOPHILS PERCENT AUTO 0 % (0-6); Hematocrit 19.4 % (33.0-51.0); Hemoglobin 6.3 g/dL (11.5-16.0); IMMATURE GRAN ABSOLUTE AUTO 0.03 K/mm3 (0.00-0.10); IMMATURE GRAN PERCENT AUTO 0 % (0-1); LYMPHOCYTES ABSOLUTE AUTO 1.41 K/mm3 (0.84-5.20); LYMPHOCYTES PERCENT AUTO 18 % (21-46); MONOCYTES ABSOLUTE AUTO 0.48 K/mm3 (0.16-1.47); MONOCYTES PERCENT AUTO 6 % (4-13); Mean Corpuscular HGB 33.5 pg (26.0-34.0); Mean Corpuscular HGB Conc 32.5 g/dL (31.5-36.5); Mean Corpuscular Volume 103 fL (80-100); NEUTROPHILS ABSOLUTE AUTO 6.08 K/mm3 (1.96-9.15); NEUTROPHILS PERCENT AUTO 76 % (41-73); Platelet Count 123 K/mm3 (150-400); RDW Coefficient Variation 20.5 % (11.7-14.2); RDW Standard Deviation 77.4 fL (35.1-46.3); Red Blood Cell Count 1.88 M/mm3 (3.80-5.20); White Blood Cell Count 8.04 K/mm3 (4.00-11.30)
[2022-01-11 17:33] LABS: Mean Platelet Volume 13.2 fL (9.1-12.4)
[2022-01-11 17:57] LABS: Magnesium, Blood 1.8 mg/dL (1.6-2.4)
[2022-01-11 18:00] LABS: Albumin, Blood 1.8 g/dL (3.4-5.0); Albumin/Globulin Ratio 0.5 (0.8-1.8); Bilirubin, Total 2.9 mg/dL (0.1-1.0); Bun/Creatinine Ratio 14.4 (12.0-20.0); Calcium, Blood 7.3 mg/dL (8.5-10.1); Creatinine, Blood 1.18 mg/dL (0.40-1.00); Globulin, Blood 3.6 g/dL (2.2-4.0); Thyroid Stimulating Hormone 2.28 uIU/mL (0.360-4.800); Total Protein, Blood 5.4 g/dL (6.4-8.2)
[2022-01-11 18:53] LABS: IMMATURE RETIC FRACTION 21.9 % (2.3-16.0); RETIC HGB EQUIVALENT 39.8 pg (28.20-36.60); RETICULOCYTE COUNT PERCENT 3.07 % (0.50-2.50)
[2022-01-11 19:08] LABS: Percent Saturation 28.1 % (15.0-50.0)
[2022-01-11 20:24] LABS: Source, Urine Straight Cath
[2022-01-11 20:29] LABS: Appearance, Urine Hazy (Clear); Blood, Urine 1+ (Neg); Color, Urine Amber (P-Yellow); Glucose Qualitative, Urine Neg (Neg); Ketones, Urine 1+ (Neg); Leukocyte Esterase, Urine 1+ (Neg); Nitrite, Urine Pos (Neg); Protein, Urine 2+ (Neg); Specific Gravity, Urine 1.025 (1.003-1.022); Urobilinogen, Urine 2+ (Normal)
[2022-01-11 20:35] LABS: Bilirubin, Urine 2+ (Neg)
[2022-01-11 20:36] LABS: Bacteria Many /hpf; Granular Casts 0-2 /lpf (0); Hyaline Casts 0-2 /lpf (0-2); Squamous Epithelial Cells Few /hpf (Few)
--- NOTE | 2022-01-11 23:24 | NUR ---
PATIENT ARRIVED TO ICU 9 FROM ER WITH DX OF SHOCK. PATIENT AWAKE A&O X4. PATIENT VERBALIZED THAT SHE HAS NOT BEEN ABLE TO WALK FOR OVER A WEEK DUE TO HER LEGS BEING HEAVY DUE TO SWELLING. HYPOTENSION CONTINUES, LEVOPHED 7MCG INFUSING FROM ER. BOTH LEGS WITH 3+ PITTING EDEMA REDNESS AND BRUISING. LEFT LEG WITH 3 CM/1 CM WOUND THAT LOOKS LIKE SKIN TEAR OR BLISTER THAT HAS POPPED. PATIENT ASKING FOR SOMETHING TO EAT.
[2022-01-11 23:56] LABS: Hematocrit 25.4 % (33.0-51.0); Hemoglobin 8.6 g/dL (11.5-16.0)
[2022-01-12] MEDS ORDERED: SERT50 PO (00:06)
[2022-01-12] MEDS ORDERED: VITAMIN B-1250 MCG PO (00:08)
[2022-01-12] MEDS ORDERED: ERGO400 PO (00:09)
[2022-01-12] MEDS ORDERED: TOCO1000 PO (00:10)
[2022-01-12] MEDS ORDERED: Multivitamins1 EAC6 PO (00:12)
--- NOTE | 2022-01-12 01:00 | NUR ---
WOUND TO LEFT LEG CLEANSED WITH SPRAY WOUND CLEANSER THEN COVERED WITH MEPITEL TO GET THE SKIN MARGINS CLOSE TOGETHER POSSIBLE, THEN COVERED WITH MEXTRA SUPERABSORBENT FOAM DRESSING, THEN WRAPPED WITH KERLIX TO HOLD DRESSINGS IN PLACE.
[2022-01-12 03:25] LABS: BASOPHILS ABSOLUTE AUTO 0.02 K/mm3 (0.00-0.23); BASOPHILS PERCENT AUTO 0 % (0-2); EOSINOPHILS ABSOLUTE AUTO 0.06 K/mm3 (0.00-0.68); EOSINOPHILS PERCENT AUTO 1 % (0-6); Hematocrit 21.5 % (33.0-51.0); Hemoglobin 7.4 g/dL (11.5-16.0); IMMATURE GRAN ABSOLUTE AUTO 0.04 K/mm3 (0.00-0.10); IMMATURE GRAN PERCENT AUTO 0 % (0-1); LYMPHOCYTES ABSOLUTE AUTO 2.01 K/mm3 (0.84-5.20); LYMPHOCYTES PERCENT AUTO 21 % (21-46); MONOCYTES ABSOLUTE AUTO 0.73 K/mm3 (0.16-1.47); MONOCYTES PERCENT AUTO 7 % (4-13); Mean Corpuscular HGB 33.9 pg (26.0-34.0); Mean Corpuscular HGB Conc 34.4 g/dL (31.5-36.5); Mean Corpuscular Volume 99 fL (80-100); NEUTROPHILS ABSOLUTE AUTO 6.94 K/mm3 (1.96-9.15); NEUTROPHILS PERCENT AUTO 71 % (41-73); Platelet Count 120 K/mm3 (150-400); RDW Coefficient Variation 19.6 % (11.7-14.2); RDW Standard Deviation 68.5 fL (35.1-46.3); Red Blood Cell Count 2.18 M/mm3 (3.80-5.20)
[2022-01-12 03:43] LABS: Albumin, Blood 2.9 g/dL (3.4-5.0); Bilirubin, Total 3.4 mg/dL (0.1-1.0); Calcium, Blood 7.5 mg/dL (8.5-10.1); Creatinine, Blood 1.13 mg/dL (0.40-1.00); Globulin, Blood 2.9 g/dL (2.2-4.0); Potassium, Blood 3.2 mmol/L (3.5-5.5); Total Protein, Blood 5.8 g/dL (6.4-8.2)
--- NOTE | 2022-01-12 06:18 | NUR ---
SUMMARY PATIENT SLEEPING OFF AND ON T/O NIGHT. REPOSITIONING SELF IN BED FOR COMFORT. PATIENT CONTINUES TO BE HYPOTENSIVE WITH LEVOPHED TITRATED DURING THE NIGHT TO 8 MCG. AFTER LR 500 CC GIVEN ABLE TO TITRATE LEVOPHED DOWN TO 7 MCG. GOAL TO MAINTAIN MAP >65. DRESSING REMAINS CD&I TO LEFT LEG. PATIENT HAS HAD NO URINE OUT SINCE ADMIT, ONLY PASSING SOFT FORMED BROWN/REED STOOL ONCE. PATIENT HAD 2 BM'S IN ED. PATIENT DENIES URGE TO VOID AT THIS TIME. DOCTOR MADALYN GIVEN UPDATE ON PATIENT, SEE NEW ORDERS.
--- NOTE | 2022-01-12 08:16 | NUR ---
ASSUMPTION OF CARE RECEIVED REPORT FROM GAUDENCIO BENSON, ASSUMED CARE OF PATIENT. PATIENT WITH EYES CLOSED, EASILY AWOKE TO VOICE. A/O. REPOSITIONED IN BED AND PROVIDED BREAKFAST. VITALS STABLE ON ROOM AIR, WITH LEVOPHED INFUSING INITIALLY AT 7MCG, DECREASED TO 6 WITH MAP ABOVE 65. WILL REVEIW ORDERS AND TREAT PRESCRIBED.
--- NOTE | 2022-01-12 18:08 | NUR ---
SHIFT SUMMARY PATIENT ALERT AND ORIENTED THROUGH SHIFT, DISCOMFORTS REPORTED IN LEGS AND ABD. DR. BERUMEN AWARE. MINIMAL PO INTAKE DUE TO DECREASED APPETITE AND REPORTS OF NAUSEA. MEDICATED CHARTED. 2L 02 VIA NC PLACED CHARTED DUE TO SATS IN 80'S AFTER COUGHING, CURRENT SP02 99%. LEVOPHED TITRATED OFF AT THIS TIME, MAP ABOVE 65 AND MIDODRINE GIVEN PRESCRIBED. EDEMA PERSISTS TO BILAT LOWER EXTREMITIES, ELEVATED ON PILLOWS PATIENT CAN TOLERATE. DRESSING TO LEFT CALF REPLACED, CONTINUES TO DRAIN S/S FLUID. INCONTINENT OF BOTH URINE AND STOOL, ATTENDS IN PLACE. IVF INFUSING AT 100ML/HR. WILL REPORT TO ONCOMING RN.
--- NOTE | 2022-01-13 00:56 | NUR ---
INFORMED PT REPORTING MUSCLE CRAMPS (SEE ORDERS)
[2022-01-13 03:11] LABS: BASOPHILS ABSOLUTE AUTO 0.05 K/mm3 (0.00-0.23); BASOPHILS PERCENT AUTO 1 % (0-2); EOSINOPHILS ABSOLUTE AUTO 0.09 K/mm3 (0.00-0.68); EOSINOPHILS PERCENT AUTO 1 % (0-6); Hematocrit 23.4 % (33.0-51.0); Hemoglobin 7.9 g/dL (11.5-16.0); IMMATURE GRAN ABSOLUTE AUTO 0.04 K/mm3 (0.00-0.10); IMMATURE GRAN PERCENT AUTO 0 % (0-1); LYMPHOCYTES ABSOLUTE AUTO 1.85 K/mm3 (0.84-5.20); LYMPHOCYTES PERCENT AUTO 19 % (21-46); MONOCYTES ABSOLUTE AUTO 0.82 K/mm3 (0.16-1.47); MONOCYTES PERCENT AUTO 9 % (4-13); Mean Corpuscular HGB 33.6 pg (26.0-34.0); Mean Corpuscular HGB Conc 33.8 g/dL (31.5-36.5); Mean Corpuscular Volume 100 fL (80-100); NEUTROPHILS ABSOLUTE AUTO 6.77 K/mm3 (1.96-9.15); NEUTROPHILS PERCENT AUTO 71 % (41-73); Platelet Count 136 K/mm3 (150-400); RDW Coefficient Variation 19.9 % (11.7-14.2); RDW Standard Deviation 70.4 fL (35.1-46.3); Red Blood Cell Count 2.35 M/mm3 (3.80-5.20); White Blood Cell Count 9.62 K/mm3 (4.00-11.30)
[2022-01-13 03:21] LABS: Mean Platelet Volume 13.2 fL (9.1-12.4)
[2022-01-13 03:38] LABS: Albumin, Blood 2.2 g/dL (3.4-5.0); Anion Gap 7 mmol/L (6-16); Blood Urea Nitrogen 13 mg/dL (8-24); Bun/Creatinine Ratio 15.6 (12.0-20.0); CO2, Blood 24 mmol/L (21-32); Calcium, Blood 7.1 mg/dL (8.5-10.1); Chloride, Blood 107 mmol/L (98-108); Creatinine, Blood 0.83 mg/dL (0.40-1.00); Glomerular Filtration Rate 77 (60-); Glucose, Blood 140 mg/dL (70-99); Phosphorus, Blood 1.9 mg/dL (2.5-4.9); Potassium, Blood 3.7 mmol/L (3.5-5.5); Sodium, Blood 138 mmol/L (136-145)
--- NOTE | 2022-01-13 05:49 | NUR ---
NEURO: A&OX4. MUSCLE CRAMP RELIEF EFFECTIVE ON PRN. DENIES PAIN CV: LEVOPHED TITRATED TO SYSTOLIC >90. LUNGS: CLEAR TO DIMINISHED. ON RA OVERNIGHT GI/: TOLERATING PO WELL. INCONTINENT OF BOWEL AND BLADDER. MAKES NEED KNOWN. BMX1 LARGE LOOSE SKIN: TURNS SELF IN BED. LLE WOUND DRESSING INTACT/DRY.
--- NOTE | 2022-01-13 08:00 | NUR ---
DR. BERUMEN UPDATED ON PATIENT STATUS THIS AM. INFORMED THAT LEVOPHED AT 2 MCG/ MINUTE. INFORMED THAT PATIENT COMPLAINED OF MUSCLE CRAMPS ON RIVET PASSER. INFORMED THAT PHOS 1.9 THIS AM. NO ORDERS RECEIVED AT THIS TIME.
--- NOTE | 2022-01-13 09:20 | NUR ---
INITIAL ASSESSMENT PATIENT ALERT AND ORIENTED X 4, AFEBRILE. PATIENT COMPLAINS OF 7.5/10 PAIN IN STOMACH AND LEGS. PATIENT STATES PAIN IN LEGS IS CHRONIC AND THAT STOMACH PAIN BEGAN ABOUT 2 WEEKS AGO. PATIENT STATES THAT SHE TAKES IBUPROFEN AT HOME FOR PAIN BUT THAT SHE "NEVER REALLY GETS UNDER 7.5/10 PAIN". PATIENT WEAK. GAIT IS IMPAIRED. PATIENT STATES AT HOME SHE GETS AROUND USING A CANE, WALKER AND FURNITURE. PATIENT STATES SHE LIVES ALONE. LUNG SOUNDS COARSE THROUGHOUT. PATIENT SATTING 90% AND GREATER ON RA. PATIENT HAS MOIST COUGH. PATIENT STATES THAT SHE OCCASIONALLY COUGHS UP CLEAR, THICK OR THIN MUCUS. PATIENT SOB WITH EXERTION. PATIENT IS AN EVERYDAY SMOKER. PATIENT IN SR, HR 60S TO 70S. SBP 90S TO 120S. PATIENT ON LEVOPHED AT 1 MCG/ MINUTE. PATIENT RECEIVING SCHEDULED MIDODRINE. 1+ EDEMA NOTED TO BLES. BLES SORE AND TENDER, ESPECIALLY TO TOUCH. ABDOMEN MODERATELY DISTENDED, FIRM, TENDER, WITH HYPOACTIVE BOWEL SOUNDS NOTED. ASCITES NOTED. PATIENT HAS ATTENDS IN PLACE FOR BOTH INCONTINENCE OF URINE AND STOOL. SKIN FRAGILE WITH SCATTERED BRUISING. SKIN TEAR/ WOUND TO L LOWER LEG; DRESSING IN PLACE. LEGS RED AND BRUISED FROM KNEES DOWN. LR TKO. BED LOW, CALL LIGHT IN REACH. WILL CONTINUE TO MONITOR PATIENT FREQUENTLY THROUGHOUT SHIFT.
--- NOTE | 2022-01-13 12:56 | NUR ---
PATIENT AFEBRILE. HR 60S TO 70S. SBP 90S TO LOW 100S. PATIENT SATTING 90% AND GREATER ON RA WHILE AWAKE BUT HAS NEEDED 2 L NC WITH SLEEP/ NAPS. PATIENT IS HAVING FREQUENT LOOSE STOOLS AND REPORTS THAT SHE HAS BEEN HAVING FREQUENT LOOSE STOOLS AT HOME FOR " LONG SHE CAN REMEMBER". PATIENT REFUSED BED BATH. DR. OBREGON CALLED AND INFORMED THAT PATIENT HAVING LOOSE STOOLS AND DOES AT HOME WELL. INQUIRED ABOUT A GI PANEL, ANTI-DIARRHEAL, AND MAKING SCHEDULED COLACE PRN. STATED SHE WOULD PUT ORDERS IN COMPUTER.
--- NOTE | 2022-01-13 19:07 | NUR ---
SHIFT SUMMARY PATIENT REMAINED ALERT AND ORIENTED X 4. PATIENT CALM, COOPERATIVE, PLEASANT. PATIENT UNMOTIVATED AT TIMES (EXAMPLE WITH PT/ OT). PATIENT GAIT IS WEAK BUT TOLERATED TRANSFERRING TO [facility] WITH 1 PERSON ASSIST. PATIENT HAS REMAINED AFEBRILE. PATIENT DID NOT HAVE COMPLAINTS OF PAIN IN LEGS AND STOMACH AFTER THIS AM. LUNGS REMAINED COARSE. PATIENT REMAINED SATTING 90% AND GREATER ON RA WHILE AWAKE AND NEEDED 2 L NC WHEN SLEEPING. PATIENT HAS MOIST COUGH. PATIENT HAS REMAINED SB TO SR, HR 50S TO 70S. SBP 80S TO 120S. PATIENT ON LEVOPHED AT 2 MCG/ MINUTE BUT HAS BEEN OFF SINCE THIS AM. PATIENT HAD 4 LOOSE BMS THIS SHIFT. IMODIUM ADDED TO EMAR AND GIVEN OT. GI PANEL COLLECTED AND SENT TO LAB. PATIENT HAD POOR APPETITE. NO CHANGES TO SKIN NOTED. PATIENT HAS BEEN REPOSITIONING SELF IN BED. PATIENT REFUSED BED BATH. IVS FLUSHED AND SALINE LOCKED. PATIENT UP TO CHAIR THIS SHIFT AFTER WORKING WITH PT/ OT. PATIENT HAS NO COMPLAINTS AT THIS TIME. BED LOW, CALL LIGHT IN REACH. REPORT HAS BEEN GIVEN TO ASSUMING PERSONNEL RECRUITER NURSE.
[2022-01-13 20:41] LABS: Adenovirus F 40/41 Not Detected (NOT DETECT); Astrovirus Not Detected (NOT DETECT); Campylobacter Sp Not Detected (NOT DETECT); Cryptosporidium Not Detected (NOT DETECT); Cyclospora Cayetanensis Not Detected (NOT DETECT); E. Coli O157 Not Detected (NOT DETECT); Entamoeba Histolytica Not Detected (NOT DETECT); Enteroaggregative E. coli-EAEC Not Detected (NOT DETECT); Enteropathogenic E. coli-EPEC Not Detected (NOT DETECT); Enterotoxigenic E. coli-ETEC Not Detected (NOT DETECT); Giardia Lamblia Not Detected (NOT DETECT); Norovirus GI/GII Not Detected (NOT DETECT); Plesiomonas Shigelloides Not Detected (NOT DETECT); Rotavirus A Not Detected (NOT DETECT); Salmonella Sp Not Detected (NOT DETECT); Sapovirus Not Detected (NOT DETECT); Shiga Toxin-prod E. coli-STEC Not Detected (NOT DETECT); Shigella/Enteroin E. coli-EIEC Not Detected (NOT DETECT); Vibrio Cholerae Not Detected (NOT DETECT); Vibrio Sp Not Detected (NOT DETECT); Yersinia Enterocolitica Not Detected (NOT DETECT)
[2022-01-14 03:43] LABS: BASOPHILS ABSOLUTE AUTO 0.03 K/mm3 (0.00-0.23); BASOPHILS PERCENT AUTO 1 % (0-2); EOSINOPHILS ABSOLUTE AUTO 0.04 K/mm3 (0.00-0.68); EOSINOPHILS PERCENT AUTO 1 % (0-6); Hemoglobin 7.2 g/dL (11.5-16.0); IMMATURE GRAN ABSOLUTE AUTO 0.02 K/mm3 (0.00-0.10); IMMATURE GRAN PERCENT AUTO 0 % (0-1); LYMPHOCYTES PERCENT AUTO 25 % (21-46); MONOCYTES ABSOLUTE AUTO 0.46 K/mm3 (0.16-1.47); MONOCYTES PERCENT AUTO 7 % (4-13); Mean Corpuscular HGB 33.8 pg (26.0-34.0); Mean Corpuscular HGB Conc 32.7 g/dL (31.5-36.5); Mean Corpuscular Volume 103 fL (80-100); Mean Platelet Volume 13.1 fL (9.1-12.4); NEUTROPHILS ABSOLUTE AUTO 4.16 K/mm3 (1.96-9.15); NEUTROPHILS PERCENT AUTO 66 % (41-73); Platelet Count 108 K/mm3 (150-400); RDW Coefficient Variation 19.7 % (11.7-14.2); RDW Standard Deviation 73.2 fL (35.1-46.3); Red Blood Cell Count 2.13 M/mm3 (3.80-5.20); White Blood Cell Count 6.31 K/mm3 (4.00-11.30)
--- NOTE | 2022-01-14 04:46 | NUR ---
SHIFT SUMMARY PT. DID WELL THROUGHOUT THE NIGHT. BP HELD STABLE AND KEPT MAP ABOVE 60 WITHOUT RESTARTING LEVO. PT. WAS PUT ON 2L NC WHILE SLEEPING AND MAINTAINED SATS ABOVE 93% ALL NIGHT. PT. HAD 2 INCONTINENT BMS AND ONE VOID. PROTONIX AND OCTREOTIDE WERE STARTED OVERNIGHT AND ARE RUNNING TO A NEW IV AND A NEW POWERGLIDE. PT. NOT GIVEN FOOD OR SNACKS TONIGHT FOR SCOPE IN THE MORNING. PT. REPOSITIONED AT REQUEST AND IS RESTING COMFORTABLY AT THIS TIME.
[2022-01-14 04:50] LABS: Anion Gap 3 mmol/L (6-16); Blood Urea Nitrogen 11 mg/dL (8-24); Bun/Creatinine Ratio 14.5 (12.0-20.0); CO2, Blood 27 mmol/L (21-32); Calcium, Blood 7.3 mg/dL (8.5-10.1); Chloride, Blood 106 mmol/L (98-108); Creatinine, Blood 0.76 mg/dL (0.40-1.00); Glomerular Filtration Rate 86 (60-); Glucose, Blood 97 mg/dL (70-99); Phosphorus, Blood 2.9 mg/dL (2.5-4.9); Potassium, Blood 3.6 mmol/L (3.5-5.5); Sodium, Blood 136 mmol/L (136-145)
[2022-01-14 07:24] LABS: IMMATURE RETIC FRACTION 16.2 % (2.3-16.0); RETIC HGB EQUIVALENT 39.4 pg (28.20-36.60); RETICULOCYTE ABSOLUTE 0.0751 M/mm3 (0.0200-0.1100); RETICULOCYTE COUNT PERCENT 3.51 % (0.50-2.50)
--- NOTE | 2022-01-14 08:28 | NUR ---
ASSUMED CARE REPORT FROM WARD BENSON AT 0700. PT RESTING IN BED. WAKES c VERBAL STIMULI. A&OX 4. FOLLOWS COMMANDS. ANSWERS QUESTIONS APPROPRIATELY. LUNGS COARSE c MOIST COUGH. PT STATES THIS BASELINE FOR HER. SPEAKING IN FULL SENTANCES. SR MONITOR, RATE 60-70'S. BP STABLE. MIDODRINE ORDERED. ABD DISTENDED, SLIGHTLY TENDER. BT X 4. MAEW. ABLE TO REPOSITION SELF. WOUNDS TO BLE. PT AWAITING EGD TODAY. WILL REMAIN NPO. AWAITING TRANSFER TO MEDICAL FLOOR.
--- NOTE | 2022-01-14 09:21 | NUR ---
PT TRANSERRED TO MEDICAL FLOOR. REPORT TO SUNG BENSON. ALL BELONGING SENT c PT.
[2022-01-14 10:27] LABS: Influenza A, PCR NEGATIVE (NEGATIVE); Influenza B, PCR NEGATIVE (NEGATIVE); Resp Syncytial Virus, PCR NEGATIVE (NEGATIVE); SARS-Cov-2 (COVID-19) PCR, MMC NEGATIVE (NEGATIVE)
--- NOTE | 2022-01-14 14:27 | NUR ---
01/14/22 1427 Marielos Cordon History, Chart, Medications and Allergies reviewed before start of procedure. 3-LEAD EKG REVIEWED WITH PHYSICIAN PRIOR TO START OF PROCEDURE. PATIENT DETERMINED TO BE ASA APPROPRIATE FOR PROPOFOL SEDATION PRIOR TO START OF PROCEDURE BY . MONITOR INTACT WITH CONTINUOUS PULSE OXIMETRY AND INTERMITTENT BP. O2 VIA N/C INTACT THROUGHOUT SEDATION/PROCEDURE.
--- NOTE | 2022-01-14 15:34 | NUR ---
BACK TO ROOM PATIENT BACK TO ROOM AT 1500 FROM PROCEDURE. PATIENT HAD AN UPPER ENDOSCOPY DONE. PER DR. DUNCAN, PATIENT CAN EAT. REPORT FROM UNA. PATIENT SETTLED INTO ROOM. TELE BACK ON PATIENT. PROTONIX AND SANDOSTATIN DRIP RESTARTED. POST OP VITALS STARTED. PATIENT ON 1L VIA N/C, MAINTAINING SATS ABOVE 90. GAG REFLEX CHECKED, INTACT. PATIENT ABLE TO SWALLOW WATER WELL.
--- NOTE | 2022-01-14 16:38 | NUR ---
SHIFT SUMMARY PATIENT TRANSFERED FROM ICU TO ROOM 302, PATIENT SETTLED INTO ROOM. PATIENT DENIES PAIN, NAUSEA, AND SHORTNESS OF BREATH. PATIENT IS A SBA WITH A FWW FOR TRANSFERS. PATIENT MEDICATED X1 FOR DIARRHEA. PATIENT HAD 3 LOOSE STOOLS. PATIENT NPO MOST OF DAY FOR UPPER SCOPE. COMPLETED, SEE DR. DUNCAN NOTES. PATIENT WORKED WITH PT. PATIENT IS IN CONTACT ISOLATION FOR MRSA IN WOUND AND REPORTED BED BUGS AT HOME BY PATIENT. DRESSING TO LLE CHANGED, SMALL SKIN TEAR. ABDIAZIZ POWERGLIDE RUNNING SANDOSTATIN. WOODY POWERGLIE RUNNING PROTONIX. PATIENT ON TELE, RUNS SB TO SR, 50-60S. PATIENT IS EATING AND DRINKING WELL WHEN ABLE. PATIENT IS PLEASANT AND COOPERATIVE WITH CARE.
--- NOTE | 2022-01-15 03:57 | NUR ---
SHIFT SUMMARY PT PLACED ON 2 L OF OXYGEN FOR INCREASING PVC'S. PT HAS NO COMPLAINTS CURRENTLY. PT SLEEPING OFF AND ON THROUGHOUT THE NIGHT. HAS OCTREOTIDE RUNNING AT 25/HR. PT HAS CALL LIGHT WITHIN REACH.
[2022-01-15 04:45] LABS: BASOPHILS ABSOLUTE AUTO 0.03 K/mm3 (0.00-0.23); BASOPHILS PERCENT AUTO 1 % (0-2); EOSINOPHILS ABSOLUTE AUTO 0.06 K/mm3 (0.00-0.68); EOSINOPHILS PERCENT AUTO 1 % (0-6); Hematocrit 22.6 % (33.0-51.0); Hemoglobin 7.2 g/dL (11.5-16.0); IMMATURE GRAN ABSOLUTE AUTO 0.01 K/mm3 (0.00-0.10); IMMATURE GRAN PERCENT AUTO 0 % (0-1); LYMPHOCYTES ABSOLUTE AUTO 1.39 K/mm3 (0.84-5.20); LYMPHOCYTES PERCENT AUTO 23 % (21-46); MONOCYTES ABSOLUTE AUTO 0.48 K/mm3 (0.16-1.47); MONOCYTES PERCENT AUTO 8 % (4-13); Mean Corpuscular HGB Conc 31.9 g/dL (31.5-36.5); Mean Corpuscular Volume 107 fL (80-100); Mean Platelet Volume 13.7 fL (9.1-12.4); NEUTROPHILS ABSOLUTE AUTO 4.14 K/mm3 (1.96-9.15); NEUTROPHILS PERCENT AUTO 68 % (41-73); Platelet Count 105 K/mm3 (150-400); RDW Coefficient Variation 19.9 % (11.7-14.2); RDW Standard Deviation 77.2 fL (35.1-46.3); Red Blood Cell Count 2.12 M/mm3 (3.80-5.20); White Blood Cell Count 6.11 K/mm3 (4.00-11.30)
[2022-01-15 05:01] LABS: Bun/Creatinine Ratio 13.9 (12.0-20.0); Calcium, Blood 7.4 mg/dL (8.5-10.1); Creatinine, Blood 0.86 mg/dL (0.40-1.00); Potassium, Blood 3.9 mmol/L (3.5-5.5)
--- NOTE | 2022-01-15 18:12 | NUR ---
SHIFT SUMMARY PATIENT DENIES PAIN, NAUSEA, AND SHORTNESS OF BREATH. PATIENT IS A SBA WITH A FWW. PATIENT DID WORK WITH PT. PATIENT DECLINED OT. PATIENT WAS MEDICATED X1 FOR LOOSE STOOLS. PATIENT BLOOD PRESSURE HOLDING IN THE 100'S SYSTOLIC WITHOUT MIDODRINE. DR. MOSES NOTIFIED. PATIENT HAD A VISITOR IN THE AFTERNOON. PATIENT IS EATING AND DRINKING WELL. PATIENT IS PLEASANT AND COOPERATIVE WITH CARE. SANDOSTATIN DRIP RUNNING IN [facility].
--- NOTE | 2022-01-16 04:11 | NUR ---
SHIFT SUMMARY PT HAS BEEN CALM AND COOPERATIVE THIS SHIFT. PT INCONTINENT OF STOOL AND URINE, ATTENDS IN PLACE. PT ASKED FOR AND WAS GIVEN SOME SNACKS TONIGHT. PT HAD COMPLAINED LAST NIGHT OF SOME ALL OVER BODY PAIN, WHICH IS NORMAL AT NIGHT FOR HER. PT WAS MEDICATED PER EMAR. PT HAS NO CURRENT COMPLAINTS AND HER CALL LIGHT IS WITHIN REACH.
[2022-01-16 04:29] LABS: Adenovirus F 40/41 Not Detected (NOT DETECT); Astrovirus Not Detected (NOT DETECT); Campylobacter Sp Not Detected (NOT DETECT); Cryptosporidium Not Detected (NOT DETECT); Cyclospora Cayetanensis Not Detected (NOT DETECT); E. Coli O157 Not Detected (NOT DETECT); Entamoeba Histolytica Not Detected (NOT DETECT); Enteroaggregative E. coli-EAEC Not Detected (NOT DETECT); Enteropathogenic E. coli-EPEC Not Detected (NOT DETECT); Enterotoxigenic E. coli-ETEC Not Detected (NOT DETECT); Giardia Lamblia Not Detected (NOT DETECT); Norovirus GI/GII Not Detected (NOT DETECT); Plesiomonas Shigelloides Not Detected (NOT DETECT); Rotavirus A Not Detected (NOT DETECT); Salmonella Sp Not Detected (NOT DETECT); Sapovirus Not Detected (NOT DETECT); Shiga Toxin-prod E. coli-STEC Not Detected (NOT DETECT); Shigella/Enteroin E. coli-EIEC Not Detected (NOT DETECT); Vibrio Cholerae Not Detected (NOT DETECT); Vibrio Sp Not Detected (NOT DETECT); Yersinia Enterocolitica Not Detected (NOT DETECT)
[2022-01-16 05:03] LABS: BASOPHILS ABSOLUTE AUTO 0.04 K/mm3 (0.00-0.23); BASOPHILS PERCENT AUTO 1 % (0-2); EOSINOPHILS ABSOLUTE AUTO 0.04 K/mm3 (0.00-0.68); EOSINOPHILS PERCENT AUTO 1 % (0-6); Hematocrit 23.9 % (33.0-51.0); Hemoglobin 7.9 g/dL (11.5-16.0); IMMATURE GRAN ABSOLUTE AUTO 0.02 K/mm3 (0.00-0.10); IMMATURE GRAN PERCENT AUTO 0 % (0-1); LYMPHOCYTES ABSOLUTE AUTO 1.45 K/mm3 (0.84-5.20); LYMPHOCYTES PERCENT AUTO 27 % (21-46); MONOCYTES ABSOLUTE AUTO 0.41 K/mm3 (0.16-1.47); MONOCYTES PERCENT AUTO 8 % (4-13); Mean Corpuscular HGB 34.6 pg (26.0-34.0); Mean Corpuscular HGB Conc 33.1 g/dL (31.5-36.5); Mean Corpuscular Volume 105 fL (80-100); NEUTROPHILS ABSOLUTE AUTO 3.34 K/mm3 (1.96-9.15); NEUTROPHILS PERCENT AUTO 63 % (41-73); Platelet Count 100 K/mm3 (150-400); RDW Coefficient Variation 19.9 % (11.7-14.2); RDW Standard Deviation 76.5 fL (35.1-46.3); Red Blood Cell Count 2.28 M/mm3 (3.80-5.20)
[2022-01-16 05:10] LABS: (LD) FRACTION 1 24 % (17-32); (LD) FRACTION 2 37 % (25-40); (LD) FRACTION 3 20 % (17-27); (LD) FRACTION 4 7 % (5-13); (LD) FRACTION 5 12 % (4-20); LDH 212 IU/L (119-226)
[2022-01-16 05:20] LABS: Bun/Creatinine Ratio 12.9 (12.0-20.0); Calcium, Blood 7.2 mg/dL (8.5-10.1); Creatinine, Blood 0.85 mg/dL (0.40-1.00); Potassium, Blood 3.7 mmol/L (3.5-5.5)
[2022-01-16 05:24] LABS: Mean Platelet Volume 13.3 fL (9.1-12.4)
--- NOTE | 2022-01-16 17:59 | NUR ---
SHIFT SUMMARY PATIENT DENIES PAIN, NAUSEA, AND SHORTNESS OF BREATH. PATIENT IS A SBA WITH A FWW. PATIENT WORKED WITH PT TODAY. PATIENT SLEEPY TODAY. PATIENT TAKEN OFF ISOLATION FOR BED BUGS PER INFECTION CONTROL. PATIENT STILL IN CONTACT ISOLATION FOR MRSA. PT IS RECOMMENDING SNF. PATIENT IS EATING AND DRINKING WELL. PATIENT IS PLEASANT AND COOPERATIVE WITH CARE.
[2022-01-17 05:38] LABS: BASOPHILS ABSOLUTE AUTO 0.03 K/mm3 (0.00-0.23); BASOPHILS PERCENT AUTO 1 % (0-2); EOSINOPHILS ABSOLUTE AUTO 0.06 K/mm3 (0.00-0.68); EOSINOPHILS PERCENT AUTO 1 % (0-6); Hemoglobin 8.5 g/dL (11.5-16.0); IMMATURE GRAN ABSOLUTE AUTO 0.02 K/mm3 (0.00-0.10); IMMATURE GRAN PERCENT AUTO 0 % (0-1); LYMPHOCYTES PERCENT AUTO 25 % (21-46); MONOCYTES ABSOLUTE AUTO 0.38 K/mm3 (0.16-1.47); MONOCYTES PERCENT AUTO 7 % (4-13); Mean Corpuscular HGB 33.9 pg (26.0-34.0); Mean Corpuscular HGB Conc 32.7 g/dL (31.5-36.5); Mean Corpuscular Volume 104 fL (80-100); Mean Platelet Volume 12.6 fL (9.1-12.4); NEUTROPHILS ABSOLUTE AUTO 3.81 K/mm3 (1.96-9.15); NEUTROPHILS PERCENT AUTO 67 % (41-73); Platelet Count 108 K/mm3 (150-400); RDW Coefficient Variation 19.7 % (11.7-14.2); RDW Standard Deviation 74.9 fL (35.1-46.3); Red Blood Cell Count 2.51 M/mm3 (3.80-5.20)
[2022-01-17 06:03] LABS: Bun/Creatinine Ratio 12.6 (12.0-20.0); Calcium, Blood 7.3 mg/dL (8.5-10.1); Creatinine, Blood 0.79 mg/dL (0.40-1.00); Potassium, Blood 3.8 mmol/L (3.5-5.5)
--- NOTE | 2022-01-17 17:21 | NUR ---
SHIFT SUMMARY PT AXO, PLEASANT AND COOPERATIVE WITH CARE. HYPOTENSION NOTED WITH AFTERNOON VITALS, PROPRANOLOL HELD PER PARAMETERS, THOUGH THIS APPEARS TO BE NORMAL FOR THIS PATIENT. PT CONTINUES TO HAVE DIARRHEA X2 THIS SHIFT, SMALL, BROWNISH YELLOW. MEDICATED PER EMAR WITH IMMODIUM AND BANANA FLAKES PER EMAR. MEDICATED FOR PAIN X1 THIS SHIFT. NO OTHER CHANGES THIS SHIFT. POWERGLIDES TO BUE PATENT AND SALINE LOCKED. DRESSING TO LLE REMOVED, MEDIPORE SKIN TEAR DRESSING IN PLACE. BED IN LOW POSITION, CALL LIGHT WITHIN REACH, BED ALARM ON.
--- NOTE | 2022-01-18 06:16 | NUR ---
Rn summary: Patient is alert and oriented. She states she really didn't rest well. She states she has trouble repositioning herself, but does not call for assist because she doesn't want to be a bother. Patient still having soft unformed stools. She again endorses that the banana flakes do not help. Pt is very pleasant. Sitting upright after fosamax given at 0615. Call light in reach.
--- NOTE | 2022-01-18 16:52 | NUR ---
SHIFT SUMMARY; ASSUMED CARE AND COMFORT OF THIS PAITENT AT 1300 FROM MYRA BENSON. PATIENT SPENT MOST OF HER SHIFT RESTING COMFORTABLY IN BED. SHE DID GET UP TO THE BATHROOM WITH PHYSICAL THERAPY ASSIST. PER NEW ORDER HE WOULD LIKE PATIENT TO AMBULATE WITH PT FOR STRENGTHENING. PATIENT IS AO X 4 TODAY. TAKES HER MEDS WHOLE WITH WATER. SHE USES CALL LIGHT APPROPRIATELY TO MAKE HER NEEDS KNOWN. SHE REMAINS IN CONTACT PRECAUTIONS FOR MRSA IN THE WOUND FROM 2020. HER VITAL SIGNS ARE SOFT WITH B/P 106 SYSTOLIC AND HER HEART RATE IS CHERI AT 56 THIS AFTERNOON. WILL CONTINUE TO MONITOR THIS PAITENT CLOSELY FOR ANY WANTS OR NEEDS UNTIL HAND OFF AT SHIFT CHANGE TO [facility] SHIFT RN.
[2022-01-19 05:36] LABS: Hematocrit 25.5 % (33.0-51.0); Hemoglobin 8.3 g/dL (11.5-16.0); Mean Corpuscular HGB 34.3 pg (26.0-34.0); Mean Corpuscular HGB Conc 32.5 g/dL (31.5-36.5); Mean Corpuscular Volume 105 fL (80-100); Mean Platelet Volume 12.6 fL (9.1-12.4); Platelet Count 121 K/mm3 (150-400); RDW Coefficient Variation 19.5 % (11.7-14.2); RDW Standard Deviation 75.7 fL (35.1-46.3); Red Blood Cell Count 2.42 M/mm3 (3.80-5.20)
[2022-01-19 05:55] LABS: BASOPHILS ABSOLUTE AUTO 0.03 K/mm3 (0.00-0.23); BASOPHILS PERCENT AUTO 0 % (0-2); EOSINOPHILS ABSOLUTE AUTO 0.06 K/mm3 (0.00-0.68); EOSINOPHILS PERCENT AUTO 1 % (0-6); IMMATURE GRAN ABSOLUTE AUTO 0.01 K/mm3 (0.00-0.10); IMMATURE GRAN PERCENT AUTO 0 % (0-1); LYMPHOCYTES ABSOLUTE AUTO 2.11 K/mm3 (0.84-5.20); LYMPHOCYTES PERCENT AUTO 25 % (21-46); MONOCYTES ABSOLUTE AUTO 0.37 K/mm3 (0.16-1.47); MONOCYTES PERCENT AUTO 4 % (4-13); NEUTROPHILS ABSOLUTE AUTO 5.84 K/mm3 (1.96-9.15); NEUTROPHILS PERCENT AUTO 69 % (41-73); White Blood Cell Count 8.42 K/mm3 (4.00-11.30)
--- NOTE | 2022-01-19 05:55 | NUR ---
SUMMARY NO NEW ISSUES NOTED. PT TOOK BANATROL IN APPLESAUCE. PT DENIES ANY PAIN OR SOB. PT SLEPT OFF AND ON DURING SHIFT. CALL LIGHT IN REACH.
[2022-01-19 05:58] LABS: International Normalized Ratio 1.97; Prothrombin Time Results 19.8 Sec (9.7-11.5)
[2022-01-19 06:05] LABS: Bun/Creatinine Ratio 11.9 (12.0-20.0); Calcium, Blood 6.9 mg/dL (8.5-10.1); Creatinine, Blood 0.84 mg/dL (0.40-1.00)
--- NOTE | 2022-01-19 09:07 | NUR ---
PT IS COMPLAINING OF SORE THROAT AND DOES NOT WANT TO TAKE HER MORNING MEDICATIONS UNTIL HER THROAT FEELS BETTER. SHE ASKS FOR CEPACOL DROPS, THIS NURSE WILL CALL DOCTOR
--- NOTE | 2022-01-19 18:34 | NUR ---
SHIFT SUMMARY PT AXO X4. COOPERATIVE WITH MOST CARE BUT HAS BEEN UNWILLING TO WORK WITH PHYSICAL AND OCCUPATIONAL THERAPY. WHEN AMBER Bishnu WAS IN TO WORK WITH PATIENT SHE STATED THAT SHE IS "GIVING UP" AND THAT SHE "CANNOT AFFORD REHAB." VSS THOUGH BRADYCARDIA NOTED, PROPANOLOL HELD FOR AFTERNOON DOSE. SEE PRIOR NOTE. PT UP WITH 1 ASSIST AND FWW BUT REMAINS WEAK WITH AMBULATION. BILATERAL POWERGLIDES PATENT AND SALINE LOCKED, CAPS CHANGED. PT'S STOOLS ARE SOFT AND FORMED. BED IN LOW POSITION, CALL LIGHT WITHIN REACH, ALARM ON.
--- NOTE | 2022-01-20 04:42 | NUR ---
Rn luisana: Patient is alert and oriented. She is a SBA with walker to the bathroom. Pt assessment with increased size to abdomen, more distended, not hard, she states it is a little tender to the touch. Pt has dozed a bit but does not really rest. Pt L ankle bone is swollen, non-pitting edema. O2 2 L on sometimes. No c/o SOB or distress. Pt is pleasant and cooperative. Call light is in reach.
[2022-01-20 05:08] LABS: BASOPHILS ABSOLUTE AUTO 0.03 K/mm3 (0.00-0.23); BASOPHILS PERCENT AUTO 0 % (0-2); EOSINOPHILS ABSOLUTE AUTO 0.06 K/mm3 (0.00-0.68); EOSINOPHILS PERCENT AUTO 1 % (0-6); Hematocrit 25.3 % (33.0-51.0); Hemoglobin 8.1 g/dL (11.5-16.0); IMMATURE GRAN ABSOLUTE AUTO 0.03 K/mm3 (0.00-0.10); IMMATURE GRAN PERCENT AUTO 0 % (0-1); LYMPHOCYTES ABSOLUTE AUTO 1.98 K/mm3 (0.84-5.20); LYMPHOCYTES PERCENT AUTO 22 % (21-46); MONOCYTES ABSOLUTE AUTO 0.42 K/mm3 (0.16-1.47); MONOCYTES PERCENT AUTO 5 % (4-13); Mean Corpuscular Volume 106 fL (80-100); NEUTROPHILS ABSOLUTE AUTO 6.66 K/mm3 (1.96-9.15); NEUTROPHILS PERCENT AUTO 73 % (41-73); Platelet Count 127 K/mm3 (150-400); RDW Coefficient Variation 19.3 % (11.7-14.2); RDW Standard Deviation 74.9 fL (35.1-46.3); Red Blood Cell Count 2.38 M/mm3 (3.80-5.20); White Blood Cell Count 9.18 K/mm3 (4.00-11.30)
[2022-01-20 06:03] LABS: Bun/Creatinine Ratio 10.9 (12.0-20.0); Calcium, Blood 7.1 mg/dL (8.5-10.1); Creatinine, Blood 0.91 mg/dL (0.40-1.00); Potassium, Blood 3.9 mmol/L (3.5-5.5)
--- NOTE | 2022-01-20 18:47 | NUR ---
PATIENT HAD NO ACUTE CHANGES IN CONDITION NOTED. SHE DOES HAVE +3 EDEMA NOTED TO HER RIGHT ANKLE AND FOOT. WAS AT BEDSIDE WHEN THIS RN SHOWED HIM THIS AREA. PATIENT IS TAKING HER PILLS WHOLE WITH WATER WITHOUT DIFF. SHE IS AO X 4 HOWEVER IS IN DENIAL AT THIS POINT THAT SHE CAN TAKE CARE OF HERSELF AT HOME. PT AND OT WORKED WITH HER TODAY AND SHE NEEDS MUCH ASSIST SHE IS VERY WEAK. SAW PATIENT TODAY AND OK TO DC FROM HIS POINT OF VIEW. WE ARE JUST WAITING FOR [employer]ANUT FARM[employer] TO ASSIST IN PLACEMENT. MELISSA DID NOT COME TO EVAL THIS PATIENT TODAY.
[2022-01-21 04:54] LABS: BASOPHILS ABSOLUTE AUTO 0.02 K/mm3 (0.00-0.23); BASOPHILS PERCENT AUTO 0 % (0-2); EOSINOPHILS ABSOLUTE AUTO 0.04 K/mm3 (0.00-0.68); EOSINOPHILS PERCENT AUTO 0 % (0-6); Hematocrit 25.1 % (33.0-51.0); Hemoglobin 8.1 g/dL (11.5-16.0); IMMATURE GRAN ABSOLUTE AUTO 0.03 K/mm3 (0.00-0.10); IMMATURE GRAN PERCENT AUTO 0 % (0-1); LYMPHOCYTES PERCENT AUTO 27 % (21-46); MONOCYTES ABSOLUTE AUTO 0.34 K/mm3 (0.16-1.47); MONOCYTES PERCENT AUTO 4 % (4-13); Mean Corpuscular HGB 33.8 pg (26.0-34.0); Mean Corpuscular HGB Conc 32.3 g/dL (31.5-36.5); Mean Corpuscular Volume 105 fL (80-100); NEUTROPHILS ABSOLUTE AUTO 6.13 K/mm3 (1.96-9.15); NEUTROPHILS PERCENT AUTO 69 % (41-73); RDW Coefficient Variation 18.8 % (11.7-14.2); RDW Standard Deviation 73.1 fL (35.1-46.3); White Blood Cell Count 8.96 K/mm3 (4.00-11.30)
[2022-01-21 04:57] LABS: Mean Platelet Volume 12.5 fL (9.1-12.4); Platelet Count 100 K/mm3 (150-400)
[2022-01-21 05:14] LABS: Bun/Creatinine Ratio 10.7 (12.0-20.0); Calcium, Blood 7.6 mg/dL (8.5-10.1); Creatinine, Blood 0.84 mg/dL (0.40-1.00); Potassium, Blood 4.2 mmol/L (3.5-5.5)
--- NOTE | 2022-01-21 07:16 | NUR ---
PT OVERNIGHT WITH NO CHANGES NOTED. SLEPT T/O SHIFT. VS WNL PT NORMAL. INCONT.OF URINE.
--- NOTE | 2022-01-21 17:48 | NUR ---
SHIFT SUMMARY; PATIENT RESTING IN BED MOST OF DAY. WORKED WITH PT FOR A LITTLE WHILE AND THEN RETURNED TO BED. EXPRESSING THAT SHE IS VERY TIRED. COMES TO ROOM AND SAYS HER ABDOMEN IS MORE DISTENDED AND THAT HE IS ORDERING A PARACENTESIS FOR TOMORROW. PHARMACY WANTS TO BE CALLED WHEN A TIME IS GIVEN FOR PARA THEY HAVE TO CALCULATE THE ALBUMIN DRIP. PATIENTS VITAL SIGNS ARE SOFT WITH THIS AFTERNOON B/P BEING IN THE 90'S SYSTOLIC AND 48 DIASTOLIC. HER INDEROL IS HELD FOR B/P LOW AND HER PULSE IS 48. SHE IS AO X 4. USES CALL LIGHT APPRORPIATELY. ABLE TO MAKE HER NEEDS KNOWN.
--- NOTE | 2022-01-22 04:57 | NUR ---
SUMMARY NO NEW ISSUES NOTED. PT HAD NO COMPLAINTS. PT HAS SLEPT QUIETLY THROUGHOUT SHIFT. CALL LIGHT IN REACH.
[2022-01-22 06:30] LABS: BASOPHILS ABSOLUTE AUTO 0.02 K/mm3 (0.00-0.23); BASOPHILS PERCENT AUTO 0 % (0-2); EOSINOPHILS ABSOLUTE AUTO 0.08 K/mm3 (0.00-0.68); EOSINOPHILS PERCENT AUTO 1 % (0-6); Hematocrit 25.1 % (33.0-51.0); Hemoglobin 8.3 g/dL (11.5-16.0); IMMATURE GRAN ABSOLUTE AUTO 0.04 K/mm3 (0.00-0.10); IMMATURE GRAN PERCENT AUTO 0 % (0-1); LYMPHOCYTES ABSOLUTE AUTO 2.28 K/mm3 (0.84-5.20); LYMPHOCYTES PERCENT AUTO 25 % (21-46); MONOCYTES ABSOLUTE AUTO 0.34 K/mm3 (0.16-1.47); MONOCYTES PERCENT AUTO 4 % (4-13); Mean Corpuscular HGB 34.6 pg (26.0-34.0); Mean Corpuscular HGB Conc 33.1 g/dL (31.5-36.5); Mean Corpuscular Volume 105 fL (80-100); NEUTROPHILS ABSOLUTE AUTO 6.24 K/mm3 (1.96-9.15); NEUTROPHILS PERCENT AUTO 69 % (41-73); Platelet Count 103 K/mm3 (150-400); RDW Coefficient Variation 18.8 % (11.7-14.2); RDW Standard Deviation 72.6 fL (35.1-46.3)
[2022-01-22 06:45] LABS: Albumin, Blood 1.7 g/dL (3.4-5.0); Albumin/Globulin Ratio 0.5 (0.8-1.8); Bilirubin, Total 2.3 mg/dL (0.1-1.0); Bun/Creatinine Ratio 12.4 (12.0-20.0); Creatinine, Blood 0.81 mg/dL (0.40-1.00); Globulin, Blood 3.1 g/dL (2.2-4.0); Potassium, Blood 3.8 mmol/L (3.5-5.5); Total Protein, Blood 4.8 g/dL (6.4-8.2)
[2022-01-22 10:02] LABS: Automated BF WBC Count 0.023 K/mm3 (0-999); Body Fluid WBC Count 23 /mm3 (0-999)
[2022-01-22 10:09] LABS: Albumin, Body Fluid 0.3 g/dL
[2022-01-22 10:22] LABS: Protein, Body Fluid 0.7 g/dL
[2022-01-22 10:46] LABS: RBC Count, Body Fluid 19 /mm3 (0-0)
[2022-01-22 10:49] LABS: Appearance, Body Fluid Clear (Clear); Color, Body Fluid Yellow (None-Yellow)
[2022-01-22 10:55] LABS: Total Cell Count, Body Fluid 100
[2022-01-22] MEDS ORDERED: PANT40 PO (14:23)
[2022-01-22] MEDS ORDERED: ONDA4ODT MM (14:23)
--- NOTE | 2022-01-22 16:00 | NUR ---
DISCHARGE SUMMARY PT RECEIVED ULTRASOUND THIS AM AND RECEIVED PARACENTESIS. PUNCTURE SITE IN PLACE COVERED WITH BANDAGE. SOME WEEPING NOTED AT SITE. BANDAGE CHANGED AND CDI. PT TO GO HOME WITH HOME HEALTH. MEDICATIONS FAXED TO [facility]. INSTRUCTED TO FOLLOW UP WITH PRIMARY CARE AND COORDINATE TO RECEIVE OUTPATIENT TIPS PROCEDURE AT [facility]. DC'D HOME WITH FRIEND NAMED VISHAL.
== END 2022-01-22 16:03 | disposition home health service (06) | DRG 432 ==
LOC: ER 16:06 → ICUW 23:20 → MEDS 01-14 09:20
PROVIDERS: Family Medicine; Internal Medicine Gastroenterology; Student in an Organized Health Care Education/Training Program; ADMIT Internal Medicine
PROC: 30233N1 Transfusion of Nonautologous Red Blood Cells into Peripheral Vein, Percutaneous Approach (ICD-10-PCS; principal; 2022-01-11)
PROC: 0W9G3ZZ Drainage of Peritoneal Cavity, Percutaneous Approach (ICD-10-PCS; 2022-01-11)
PROC: 3E033XZ Introduction of Vasopressor into Peripheral Vein, Percutaneous Approach (ICD-10-PCS; 2022-01-11)
PROC: 3E03329 Introduction of Other Anti-infective into Peripheral Vein, Percutaneous Approach (ICD-10-PCS; 2022-01-11)
PROC: 0DJ08ZZ Inspection of Upper Intestinal Tract, Via Natural or Artificial Opening Endoscopic (ICD-10-PCS; 2022-01-14)
DX: K70.31 Alcoholic cirrhosis of liver with ascites (principal); R57.1 Hypovolemic shock; R57.8 Other shock; N17.9 Acute kidney failure, unspecified; N39.0 Urinary tract infection, site not specified; K56.7 Ileus, unspecified; R64 Cachexia; Z68.1 Body mass index [BMI] 19.9 or less, adult; K76.6 Portal hypertension; I86.4 Gastric varices; S81.802A Unspecified open wound, left lower leg, initial encounter; S81.801A Unspecified open wound, right lower leg, initial encounter; X58.XXXA Exposure to other specified factors, initial encounter; D63.8 Anemia in other chronic diseases classified elsewhere; E87.6 Hypokalemia; I87.8 Other specified disorders of veins; F17.210 Nicotine dependence, cigarettes, uncomplicated; Z79.899 Other long term (current) drug therapy; K52.9 Noninfective gastroenteritis and colitis, unspecified; K21.9 Gastro-esophageal reflux disease without esophagitis; D50.9 Iron deficiency anemia, unspecified; E78.5 Hyperlipidemia, unspecified; J44.9 Chronic obstructive pulmonary disease, unspecified; F32.A Depression, unspecified; M19.90 Unspecified osteoarthritis, unspecified site; M81.0 Age-related osteoporosis without current pathological fracture; Z98.890 Other specified postprocedural states
CPT/HCPCS: 0241U; 36415; 36430; 49083; 76705; 80048; 80053; 80069; 81001; 82042; 82105; 82330; 82607; 82746; 82977; 83540; 83550; 83605; 83615; 83625; 83690; 83735; 84157; 84443; 85014; 85018; 85025; 85045; 85610; 86850; 86900; 86901; 86923; 87040; 87070; 87205; 87507; 89051; 93005; 93010; 93306; 94760; 96361; 96365; 96366; 96367; 96375; 97110; 97116; 97162; 97166; 97530; 97535; 99285-25; A9270; C1751; C9113; J0610; J0696; J1644; J2250; J2354; J2405; J2543; J2704; J3370; J3480; J7030; J7050; J7060; J7120; P9016; P9047

== ENCOUNTER 2022-02-01 21:28 | Inpatient (IN) | payer OTHER ==
[~2022-02-01] VITALS: Ht 165.1 cm; Wt 60.5 kg
[~2022-02-01 21:28] MED LIST changes: +ERGO400 PO; +Multivitamins1 EAC6 PO; +ONDA4ODT MM; +SERT50 PO; +TOCO1000 PO; +VITAMIN B-1250 MCG PO
[2022-02-01 22:50] LABS: BASOPHILS ABSOLUTE AUTO 0.02 K/mm3 (0.00-0.23); BASOPHILS PERCENT AUTO 0 % (0-2); EOSINOPHILS ABSOLUTE AUTO 0.04 K/mm3 (0.00-0.68); EOSINOPHILS PERCENT AUTO 0 % (0-6); Hematocrit 22.6 % (33.0-51.0); Hemoglobin 7.4 g/dL (11.5-16.0); IMMATURE GRAN ABSOLUTE AUTO 0.03 K/mm3 (0.00-0.10); IMMATURE GRAN PERCENT AUTO 0 % (0-1); LYMPHOCYTES ABSOLUTE AUTO 2.17 K/mm3 (0.84-5.20); LYMPHOCYTES PERCENT AUTO 24 % (21-46); MONOCYTES ABSOLUTE AUTO 0.45 K/mm3 (0.16-1.47); MONOCYTES PERCENT AUTO 5 % (4-13); Mean Corpuscular HGB 35.4 pg (26.0-34.0); Mean Corpuscular HGB Conc 32.7 g/dL (31.5-36.5); Mean Corpuscular Volume 108 fL (80-100); NEUTROPHILS ABSOLUTE AUTO 6.25 K/mm3 (1.96-9.15); NEUTROPHILS PERCENT AUTO 70 % (41-73); Platelet Count 105 K/mm3 (150-400); RDW Coefficient Variation 18.2 % (11.7-14.2); RDW Standard Deviation 71.1 fL (35.1-46.3); Red Blood Cell Count 2.09 M/mm3 (3.80-5.20); White Blood Cell Count 8.96 K/mm3 (4.00-11.30)
[2022-02-01 23:09] LABS: Albumin, Blood 1.8 g/dL (3.4-5.0); Albumin/Globulin Ratio 0.5 (0.8-1.8); Bilirubin, Total 3.1 mg/dL (0.1-1.0); Bun/Creatinine Ratio 14.7 (12.0-20.0); Calcium, Blood 7.2 mg/dL (8.5-10.1); Creatinine, Blood 0.95 mg/dL (0.40-1.00); Globulin, Blood 3.6 g/dL (2.2-4.0); Magnesium, Blood 1.7 mg/dL (1.6-2.4); Potassium, Blood 2.5 mmol/L (3.5-5.5); Thyroid Stimulating Hormone 3.42 uIU/mL (0.360-4.800); Total Protein, Blood 5.4 g/dL (6.4-8.2)
[2022-02-02 00:07] LABS: Influenza A, PCR NEGATIVE (NEGATIVE); Influenza B, PCR NEGATIVE (NEGATIVE); Resp Syncytial Virus, PCR NEGATIVE (NEGATIVE); SARS-Cov-2 (COVID-19) PCR, MMC NEGATIVE (NEGATIVE)
--- NOTE | 2022-02-02 03:30 | NUR ---
PATIENT ARRIVED TO ICU 15 VIA GURNEY FROM ED. PATIENT AWAKE A&O X4 AND ABLE TO ASSIST WITH REPOSITION IN BED. PATIENT TRANSFERRED TO ICU BED AND PLACED ON ICU MONITORS. CENTRAL LINE IN PLACE TO RIGHT IJ WITH POTASSIUM RIDER AND LEVOPHED DRIP AT 8 MCG INFUSING. PATIENT INCONT OF SMALL LOOSE BROWN STOOL, PATIENT VERBALIZED THAT SHE IS UNABLE TO FEEL WHEN SHE NEEDS TO HAVE A BM OR URINATE ATTENDS REPLACED.
[2022-02-02 03:36] LABS: Glucose, Body Fluid 115 mg/dL; Protein, Body Fluid 0.6 g/dL
[2022-02-02 03:41] LABS: Automated BF WBC Count 0.019 K/mm3 (0-999)
[2022-02-02 03:47] LABS: Body Fluid WBC Count 19 /mm3 (0-999)
[2022-02-02 03:49] LABS: Appearance, Body Fluid Hazy (Clear); Color, Body Fluid L Yellow (None-Yellow); Lactate Dehydrogenase, Body Fl 30 U/L
[2022-02-02 04:00] LABS: RBC Count, Body Fluid 12 /mm3 (0-0)
[2022-02-02 04:32] LABS: Total Cell Count, Body Fluid 100
[2022-02-02 06:19] LABS: BASOPHILS ABSOLUTE AUTO 0.03 K/mm3 (0.00-0.23); BASOPHILS PERCENT AUTO 0 % (0-2); EOSINOPHILS ABSOLUTE AUTO 0.06 K/mm3 (0.00-0.68); EOSINOPHILS PERCENT AUTO 1 % (0-6); Hematocrit 22.1 % (33.0-51.0); Hemoglobin 7.3 g/dL (11.5-16.0); IMMATURE GRAN ABSOLUTE AUTO 0.04 K/mm3 (0.00-0.10); IMMATURE GRAN PERCENT AUTO 0 % (0-1); LYMPHOCYTES ABSOLUTE AUTO 2.24 K/mm3 (0.84-5.20); LYMPHOCYTES PERCENT AUTO 21 % (21-46); MONOCYTES PERCENT AUTO 6 % (4-13); Mean Corpuscular HGB 36.1 pg (26.0-34.0); Mean Corpuscular Volume 109 fL (80-100); NEUTROPHILS ABSOLUTE AUTO 7.79 K/mm3 (1.96-9.15); NEUTROPHILS PERCENT AUTO 72 % (41-73); Platelet Count 115 K/mm3 (150-400); RDW Coefficient Variation 18.5 % (11.7-14.2); RDW Standard Deviation 72.7 fL (35.1-46.3); Red Blood Cell Count 2.02 M/mm3 (3.80-5.20); White Blood Cell Count 10.86 K/mm3 (4.00-11.30)
[2022-02-02 06:23] LABS: Mean Platelet Volume 13.5 fL (9.1-12.4)
[2022-02-02 06:34] LABS: Albumin, Blood 1.7 g/dL (3.4-5.0); Albumin/Globulin Ratio 0.5 (0.8-1.8); Bilirubin, Total 3.2 mg/dL (0.1-1.0); Bun/Creatinine Ratio 14.3 (12.0-20.0); Creatinine, Blood 0.91 mg/dL (0.40-1.00); Globulin, Blood 3.4 g/dL (2.2-4.0); Potassium, Blood 3.1 mmol/L (3.5-5.5); Total Protein, Blood 5.1 g/dL (6.4-8.2)
[2022-02-02 06:37] LABS: International Normalized Ratio 2.09; Prothrombin Time Results 20.9 Sec (9.7-11.5)
--- NOTE | 2022-02-02 09:15 | NUR ---
INITIAL ASSESSMENT PATIENT SLEEPING UPON ENTERING ROOM. PATIENT WAKES EASILY TO VOICE. PATIENT ALERT AND ORIENTED X 4. PATIENT WEAK AND DECONDITIONED. SCLERA JAUNDICED. PATIENT USES CANE OR WALKER TO GET AROUND AT HOME BUT HAS BEEN HAVING MANY FALLS. PATIENT STATES "MY KNEES GIVE OUT ON ME". PATIENT AFEBRILE. NO COMPLAINTS OF PAIN. PATIENT SATTING 90% AND GREATER ON RA. PATIENT IN SR, HR IN THE 70S. SBP 90S TO LOW 100S. LEVOPHED DECREASED TO 6 MCG/ MINUTE. DEPENDENT EDEMA NOTED TO BLES, THIGHS AND BUTTOCKS. SCDS PLACED. PATIENT STATES SHE IS SLIGHTLY NAUSEOUS THIS AM BUT BETTER THAN HAS BEEN. ABD DISTENDED, FIRM, TENDER. ASCITES NOTED. PATIENT HAS ATTENDS ON FOR INCONTINENCE OF BOWEL AND URINE. PATIENT HAS BEEN HAVING GREEN, LIQUID STOOLS BUT HAVE BEEN UNABLE TO GET GI PANEL BECAUSE IT IS SO LIQUIDY THAT IT SOAKS INTO ATTENDS. PATIENT FAILED RN BEDSIDE SWALLOW EVAL; REMAINS NPO. SKIN PALE AND VERY FRAGILE. SCATTERED BRUISES NOTED THROUGHOUT ENTIRE BODY. SCAB NOTED TO WOODY/ ELBOW. NS TKO. BED LOW, CALL LIGHT IN REACH. WILL CONTINUE TO MONITOR PATIENT FREQUENTLY THROUGHOUT SHIFT.
--- NOTE | 2022-02-02 12:37 | NUR ---
DR. ALLEN UPDATED ON PATIENT STATUS. INFORMED THAT PATIENT FAILED NURSE BEDSIDE SWALLOW EVAL THIS AM AND SO IS NOT ABLE TO RECEIVE PO MEDICATIONS, INCLUDING MIDODRINE. INFORMED THAT PATIENT DOES NOT HAVE ANY MAINTENANCE FLUIDS INFUSING. INFORMED THAT HBG 7.3 BUT RECEIVED 2 L NS IN ED AND THAT HEMOGLOBIN IS HOLDING STEADY. INFORMED THAT PATIENT IS HAVING LIQUID STOOLS BUT THAT THEY ARE GREEN IN COLOR. INFORMED THAT LEVOPHED AT 6 MCG/ MINUTE. ORDERS RECEIVED.
--- NOTE | 2022-02-02 13:00 | NUR ---
PATIENT AFEBRILE. HR IN THE 70S. SBP IN THE 90S. NS STARTED AT 75 MLS/ HOUR MAINTENANCE. PATIENT CLEANED UP FROM INCONTINENT STOOL. GI PANEL SENT TO LAB. NO OTHER ACUTE CHANGES TO NOTE ON AT THIS TIME. NO COMPLAINTS. WILL CONTINUE TO MONITOR.
[2022-02-02 14:37] LABS: Adenovirus F 40/41 Not Detected (NOT DETECT); Astrovirus Not Detected (NOT DETECT); Campylobacter Sp Not Detected (NOT DETECT); Cryptosporidium Not Detected (NOT DETECT); Cyclospora Cayetanensis Not Detected (NOT DETECT); E. Coli O157 Not Detected (NOT DETECT); Entamoeba Histolytica Not Detected (NOT DETECT); Enteroaggregative E. coli-EAEC Not Detected (NOT DETECT); Enteropathogenic E. coli-EPEC Not Detected (NOT DETECT); Enterotoxigenic E. coli-ETEC Not Detected (NOT DETECT); Giardia Lamblia Not Detected (NOT DETECT); Norovirus GI/GII Not Detected (NOT DETECT); Plesiomonas Shigelloides Not Detected (NOT DETECT); Rotavirus A Not Detected (NOT DETECT); Salmonella Sp Not Detected (NOT DETECT); Sapovirus Not Detected (NOT DETECT); Shiga Toxin-prod E. coli-STEC Not Detected (NOT DETECT); Shigella/Enteroin E. coli-EIEC Not Detected (NOT DETECT); Vibrio Cholerae Not Detected (NOT DETECT); Vibrio Sp Not Detected (NOT DETECT); Yersinia Enterocolitica Not Detected (NOT DETECT)
--- NOTE | 2022-02-02 16:00 | NUR ---
PATIENT AFEBRILE. HR IN THE 70S. SBP 90S TO LOW 100S. LEVOPHED REMAINS AT 6 MCG/ MINUTE. PATIENT HAD ANOTHER LIQUID BM. NO OTHER ACUTE CHANGES TO NOTE ON AT THIS TIME. NO COMPLAINTS. WILL CONTINUE TO MONITOR.
--- NOTE | 2022-02-02 19:21 | NUR ---
Met with patient to review her illness. Careful discussion of how frail she has become and her needs. We also discussed code status and having a decision maker. Pt states she can hardly walk any more and falls. She states she has not drank for a few months she cant tolerate it. She understands she would not tolerate cpr stillwants to think about it. Asked her if it feels like she is going againt her kristie nodded a little. Not a straightforward answer. She would go to assisted living but scared she will have to give up her dog but knows its time. asked if she had family she could be with states she has an ex siter in law in [place].will talk to care managers about placement and will see haow patient feels about outpatient paliative or hospice care. will see if she qualifies for hospice.
--- NOTE | 2022-02-02 19:35 | NUR ---
SHIFT SUMMARY PATIENT NAPPED ON AND OFF THROUGHOUT SHIFT. PATIENT REMAINED ALERT AND ORIENTED X 4, CALM AND COOPERATIVE. PATIENT REMAINED AFEBRILE. PATIENT HAD NO COMPLAINTS OF PAIN. PATIENT REMAINED WEAK BUT ABLE TO MOVE ALL EXTREMITIES. PATIENT REMAINED SATTING 90% AND GREATER ON RA. PATIENT REMAINED SR, HR 60S TO 80S. SBP 80S TO LOW 100S. SCDS IN PLACE. NAUSEA INTERMITTENTLY THIS SHIFT. PATIENT HAD 3 GREEN, LIQUID BMS. GI PANEL SENT TO LAB AND NEGATIVE. PATIENT ON MECHANICAL SOFT DIET PER SPEECH THERAPY. PATIENT ONLY ATE ABOUT 5% OF DINNER. PATIENT DID NOT HAVE MUCH URINARY OUTPUT THIS SHIFT AND HARD TO TELL WITH THE LIQUID STOOLS. BLADDER SCANNER READING HIGH BUT PATIENT HAS ASCITES. DR. ALLEN CALLED AND ORDER RECEIVED TO PLACE FRAZIER CATHETER FOR RETENTION. URINE RETURN TEA COLORED AND SEDIMENT NOTED. NO CHANGES TO SKIN NOTED. PATIENT REPOSITIONED T/O SHIFT. PATIENT RECEIVED COMPLETE BED BATH THIS SHIFT. NS INFUSING AT 75 MLS/ HOUR. LEVOPHED ONLY ABLE TO BE DECREASED FROM 8 TO 6 MCG/ MINUTE, HOWEVER PATIENT IS NOW ABLE TO TAKE PO MIDODRINE. PATIENT RECEIVING SCHEDULED ALBUMIN. PATIENT HAS NO COMPLAINTS AT THIS TIME. BED LOW, CALL LIGHT IN REACH. REPORT GIVEN TO ASSUMING RETAIL SALESPERSON NURSE.
[2022-02-02 22:43] LABS: Potassium, Blood 2.8 mmol/L (3.5-5.5)
[2022-02-03 05:28] LABS: PCO2 Arterial 39.1 mmHg (35-45); pH Blood Arterial 7.37 (7.35-7.45)
[2022-02-03 05:38] LABS: Hematocrit 20.8 % (33.0-51.0); Hemoglobin 6.8 g/dL (11.5-16.0); Mean Corpuscular HGB 36.6 pg (26.0-34.0); Mean Corpuscular HGB Conc 32.7 g/dL (31.5-36.5); Mean Corpuscular Volume 112 fL (80-100); Platelet Count 101 K/mm3 (150-400); RDW Coefficient Variation 18.6 % (11.7-14.2); RDW Standard Deviation 74.2 fL (35.1-46.3); Red Blood Cell Count 1.86 M/mm3 (3.80-5.20)
[2022-02-03 05:39] LABS: BASOPHILS ABSOLUTE AUTO 0.03 K/mm3 (0.00-0.23); BASOPHILS PERCENT AUTO 0 % (0-2); EOSINOPHILS ABSOLUTE AUTO 0.09 K/mm3 (0.00-0.68); EOSINOPHILS PERCENT AUTO 1 % (0-6); IMMATURE GRAN ABSOLUTE AUTO 0.05 K/mm3 (0.00-0.10); IMMATURE GRAN PERCENT AUTO 1 % (0-1); LYMPHOCYTES ABSOLUTE AUTO 1.99 K/mm3 (0.84-5.20); LYMPHOCYTES PERCENT AUTO 18 % (21-46); MONOCYTES ABSOLUTE AUTO 0.81 K/mm3 (0.16-1.47); MONOCYTES PERCENT AUTO 8 % (4-13); NEUTROPHILS ABSOLUTE AUTO 7.89 K/mm3 (1.96-9.15); NEUTROPHILS PERCENT AUTO 73 % (41-73); White Blood Cell Count 10.86 K/mm3 (4.00-11.30)
[2022-02-03 06:11] LABS: Bun/Creatinine Ratio 12.7 (12.0-20.0); Creatinine, Blood 0.95 mg/dL (0.40-1.00); Potassium, Blood 3.4 mmol/L (3.5-5.5)
--- NOTE | 2022-02-03 06:52 | NUR ---
SHIFT SUMMARY PATIENT ALERT AND ORIENTED. CAMEJO. DECONDITIONED AND WEAK. NEURO STATUS INTACT. 2LNC OVERNIGHT, LUNGS CLEAR, NO SOB REPORTED. MAP >65 WITH LEVOPHED @7. UNABLE TO WEAN OFF PRESSERS OVERNIGHT. MULTIPLE LIQUID BOWEL MOVEMENTS. LOW APPETITE FRAZIER CATHETER IN PLACE, LOW UOP 150 OVERNIGHT. MD AWARE, MONITORING CR LEVELS. K+ CHECK AT 2200 2.8, MD ORDERED 40MEQ REPLACEMENT. RECHECK 3.4. AM HGB 6.8, ONE UNIT PRBC ORDERED PER MD.
[2022-02-03 08:33] LABS: Source, Urine Foley catheter
[2022-02-03 08:38] LABS: Blood, Urine 4+ (Neg); Glucose Qualitative, Urine Neg (Neg); Ketones, Urine 1+ (Neg); Leukocyte Esterase, Urine 3+ (Neg); Nitrite, Urine Neg (Neg); Protein, Urine 3+ (Neg); Urobilinogen, Urine NORM (Normal)
[2022-02-03 08:48] LABS: Appearance, Urine Hazy (Clear); Bilirubin, Urine 1+ (Neg); Color, Urine Yellow (P-Yellow)
[2022-02-03 08:50] LABS: Amorphous Light (0-Heavy); Bacteria Few /hpf; Squamous Epithelial Cells Rare /hpf (Few); White Blood Cells, Urine 25-50 /hpf (0-5)
--- NOTE | 2022-02-03 11:00 | NUR ---
ASSUMED CARE OF PT AT 0700 PT RESTING IN ROOM WITH NO VISITORS. LEVOPHED RUNNING AT 7MCG/KG/MIN. NS RUNNING AT 100 MLS/HR. FRAZIER CATH DRAINING TO GRAVITY. MAP ABOVE 65. VITALS STABLE. SEE ASSESSMENT FOR MORE INFORMATION.
[2022-02-03 14:25] LABS: International Normalized Ratio 2.28; Prothrombin Time Results 22.7 Sec (9.7-11.5)
--- NOTE | 2022-02-03 17:55 | NUR ---
END OF SHIFT SUMMARY A/O X4. OBEYS COMMANDS. PT GIVEN 1 UNIT PRBC'S AND 2 UNITS OF FFP THIS SHIFT. COMPLETELY TITRATED OFF OF LEVOPHED THIS SHIFT. NS RUNNING AT 100MLS/HR. LSCBT WITH DIMINISHED BASES. PT HAS EATEN SCANT AMOUNT OF FOOD OFFERED AND STATING THAT SHE JUST DOES NOT FEEL LIKE EATING. NO COMPLAINTS OF PAIN THIS SHIFT. FRAZIER CATH DRAINING TO GRAVITY WITH ONLY 90MLS OF URINE OUT THIS SHIFT. BRUISING THROUGHOUT UPPER AND LOWER EXTREMETIES. NO VISITORS IN ROOM TODAY. PT REFUSED SPEECH THERAPY TODAY STATING SHE DOES NOT FEEL UP TO IT. ONE BM THIS SHIFT. BRADYCARDIC MOST OF THE DAY WITH MAP BETWEEN 65-70. NORMAL SINUS RHYTHM. PT IS CONSIDERING DNR STATUS AND IS WAITING FOR RISK CONTROL CONSULTANT TO HELP WITH PAPERWORK. STATUS UNCHANGED AT THIS TIME.
[2022-02-03 17:57] LABS: International Normalized Ratio 1.77
[2022-02-03 18:43] LABS: Prothrombin Time Results 17.9 Sec (9.7-11.5)
--- NOTE | 2022-02-03 19:00 | NUR ---
ASSUMED CARE OF PATIENT AT THIS TIME. PATIENT RESTING COMFORTABLY IN BED. NS RUNNING @ 100/HR. PATINT COMPLAINTS OF FREQUENT LIQUID BOWEL MOVEMNTS AND ABDOMINAL CRAMPING. BROTH GIVEN AND PRN TYLENOL PER EMR.
[2022-02-04 05:54] LABS: BASOPHILS ABSOLUTE AUTO 0.01 K/mm3 (0.00-0.23); BASOPHILS PERCENT AUTO 0 % (0-2); EOSINOPHILS ABSOLUTE AUTO 0.04 K/mm3 (0.00-0.68); EOSINOPHILS PERCENT AUTO 1 % (0-6); Hematocrit 21.5 % (33.0-51.0); Hemoglobin 6.8 g/dL (11.5-16.0); IMMATURE GRAN ABSOLUTE AUTO 0.04 K/mm3 (0.00-0.10); IMMATURE GRAN PERCENT AUTO 1 % (0-1); LYMPHOCYTES ABSOLUTE AUTO 1.25 K/mm3 (0.84-5.20); LYMPHOCYTES PERCENT AUTO 19 % (21-46); MONOCYTES ABSOLUTE AUTO 0.53 K/mm3 (0.16-1.47); MONOCYTES PERCENT AUTO 8 % (4-13); Mean Corpuscular HGB 33.3 pg (26.0-34.0); Mean Corpuscular HGB Conc 31.6 g/dL (31.5-36.5); Mean Corpuscular Volume 105 fL (80-100); NEUTROPHILS ABSOLUTE AUTO 4.82 K/mm3 (1.96-9.15); NEUTROPHILS PERCENT AUTO 72 % (41-73); Platelet Count 84 K/mm3 (150-400); RDW Coefficient Variation 25.2 % (11.7-14.2); RDW Standard Deviation 95.7 fL (35.1-46.3); Red Blood Cell Count 2.04 M/mm3 (3.80-5.20); White Blood Cell Count 6.69 K/mm3 (4.00-11.30)
[2022-02-04 06:17] LABS: Mean Platelet Volume 13.2 fL (9.1-12.4)
--- NOTE | 2022-02-04 06:52 | NUR ---
SHIFT SUMMARY PATIENT ORIENTED X4. DROWSY AND COMPLAINS OF FEELING VERY TIRED. WEAKNESS IN ALL EXTREMITIES. BLOOD PRESSURE LABILE REQUIRING MINIMAL PRESSER SUPPORT. LEVOPHED STOPPED AT 0600. SINUS RHYTHM IN THE 90'S. 2LNC CONTINUOUSLY. EPISODE OF ASPIRATION DURING NIGHT WHEN PATIENT ATTEMPTED TO DRINK HOT CHOCOLATE. STRONG COUGH AND ABLE TO COUGH UP RESIDUALS IN LUNGS. ABDOMEN FIRM AND TENDER. PATIENT COMPLAINING OF ADOMINAL CRAMPS. MULTIPLE SOFT, MUCOUSY BOWEL MOVEMENTS OVERNIGHT. PLAN FOR PARACENTESIS TODAY. POOR APPETITE, ABLE TO EAT BROTH WITH CRACKERS. FRAZIER IN PLACE, DRAINING JENNIFER URINE. 100 UOP OVERNIGHT. MAINTAINANCE FLUIDS RUNNING @ 100/HR. AM LABS SHOWED HGB 6.8. MD NOTIFIED, SEE CHART FOR NEW ORDERS.
[2022-02-04 06:58] LABS: Albumin, Blood 2.5 g/dL (3.4-5.0); Bilirubin, Total 2.7 mg/dL (0.1-1.0); Bun/Creatinine Ratio 11.3 (12.0-20.0); Calcium, Blood 6.9 mg/dL (8.5-10.1); Creatinine, Blood 0.89 mg/dL (0.40-1.00); Globulin, Blood 2.5 g/dL (2.2-4.0); Potassium, Blood 3.3 mmol/L (3.5-5.5)
[2022-02-04 07:24] LABS: International Normalized Ratio 1.86; Prothrombin Time Results 18.8 Sec (9.7-11.5)
--- NOTE | 2022-02-04 08:23 | NUR ---
ASSUMED CARE OF PT THIS AM. PT. ALERT AND ORIENTED THIS AM. REPORTS CHRONIC PAIN THAT IS IMPROVED WITH WARM BLANKETS AND REPOSITIONING. PT. CURRENTLY ON 2LNC WHILE SLEEPING. ABD REMAINS FIRM AND DISTENDED. PLANS FOR PARACENTESIS TODAY. PT. TO RECIEVE 1U OF PRBC TODAY. LEVOPHED GTT ON STAND BY AT THIS TIME. FRAZIER DRAINING TO GRAVITY. ATTENDS CHANGED FOR LOOSE STOOL. CENTRAL LINE TO RIJ, INFUSING. PT. CALL LIGHT IN REACH, BED IN LOW POSITION. ALL NEEDS MET AT THIS TIME.
--- NOTE | 2022-02-04 10:00 | NUR ---
DR. KOEHLER TO BEDSIDE TO EVAL NOTIFIED PROVIDER OF PLAN FOR BEDSIDE PARACENTESIS. DISCUSSED ELECTROLYTE REPLACEMENT. PT. UNIT OF PRBCS INFUSING.
--- NOTE | 2022-02-04 11:00 | NUR ---
PARACENTESIS COMPLETED AT BEDSIDE. 5L OF FLUID REMOVED PER LIST OF FIRST JOB IDEAS.
--- NOTE | 2022-02-04 14:00 | NUR ---
PICC LINE PLACED TO LEFT UPPER ARM. RIJ CENTRAL LINE REMOVED. GAUZE DRESSING IN PLACE TO RIJ. PT. PICC LINE OOZING, PRESSURE DRESSING APPLIED.
--- NOTE | 2022-02-04 18:05 | NUR ---
SHIFT SUMMARY PT. REMAINS ALERT AND ORIENTED. PT ABLE TO REPOSITION SELF IN BED, NEEDS REMINDED TO CHANGE POSITIONS. PT. CONTINUES WITH FRAZIER IN PLACE WITH MINIMAL JENNIFER URINE OUTPUT. DIARRHEA T/O DAY NEEDING FREQUENT ATTENDS CHANGES. PT. CENTRAL LINE REMOVED TODAY AND PICC LINE PLACED. PT. TOLERATED WELL. PARACENTESIS TODAY WITH 5L REMOVED. PT. CONTINUES ON 3LNC T/O DAY. PT. REMAINS OFF OF LEVOPHED GTT T/O DAY. NS INFUSING AT 100ML/HR. ALL NEEDS MET AT THIS TIME.
--- NOTE | 2022-02-04 19:26 | NUR ---
REPORT RECEIVED ON THIS PATIENT AT THE BEDSIDE WITH OFFGOING DAYSHIFT NURSE. PT APPEARS COMFORTABLE IN BED, ALERT AND ORIENTED AND APPROPRIATE FOR SITUATION. VITALS STABLE NOTED. PLAN OF CARE INCLUDES MAINTAINING BLOOD PRESSURE WITHOUT ANY NEED FOR LEVOPHED TONIGHT. PT RECEIVED 5L REMOVAL PARACENTESIS TODAY PER REPORT. WILL CONTINUE TO MONITOR.
--- NOTE | 2022-02-04 20:30 | NUR ---
INITIAL SHIFT ASSESSMENT PERFORMED AT BEDSIDE. PT PRESENTS ALERT AND ORIENTED ALERT IN BED AND HER MOOD IS CONGRUENT WITH HER SITUATION. PT BREATHING COMFORTABLY ON 3L NASAL CANNULA. PT BREATHING IS REGULAR AND EQUAL BILATERALLY. PT STATES CHRONIC PAIN IN ABDOMEN IS AT A 2 AND IS TOLERABLE AT THIS TIME. BOWEL SOUNDS NOTED AND PT IS POSITIVE FOR FLATUS. URINE OUTPUT IS LOW AND URINE IS JENNIFER IN COLOR. PT CURRENTLY RECEIVING NS AT 100/HR THROUGH PICC LINE PLACED TODAY. PT WITH SOME BLOODY DISCHARGE AT THE SIDE AND ORIGINAL DRESSING IS IN PLACE. WILL CHANGE WHEN HEMOSTASIS HAS OCCURRED RELATED TO PATIENTS KNOWN LIVER FAILURE, THUS CLOTTING ISSUES. WILL MONITOR FOR ANY SIGNS/SYMPTOMS OF BLEEDING. VITALS STABLE. WILL CONTINUE TO MONITOR.
--- NOTE | 2022-02-05 00:01 | NUR ---
FOLLOW UP ASSESSMENT COMPLETED ON PATIENT AT 0000. PT APPEARS ASLEEP IN BED. VITALS HAVE REMAINED STABLE WITH SOFT BLOOD PRESSURES NOTED PREVIOUS. PT SYSTEMS ASSESSMENT REMAIN UNCHANGED FROM PREVIOUS ASSESSMENT.PT REPOSITONED IN BED AND PLACED CALL LIGHT WITHIN REACH. WILL CONTINUE TO MONITOR.
--- NOTE | 2022-02-05 02:40 | NUR ---
PT BP LOWERING THE NIGHT PROGRESSES; EVEN WHILE AWAKE. PT BP CUFF ADJUSTED TO CONFIRM. PT UOP HAS BEEN LOW WELL SO TO ENSURE PERFUSION VITAL ORGANS, PTS LEVOPHED GTT RESUMED. SEE EMAR. PT ALERT AND ORIENTED. VITALS OTHERWISE STABLE. NO ACUTE DISTRESS NOTED AT THIS TIME. WILL CONTINUE TO MONITOR.
[2022-02-05 04:15] LABS: Hemoglobin 8.8 g/dL (11.5-16.0); Mean Corpuscular HGB 32.7 pg (26.0-34.0); Mean Corpuscular HGB Conc 32.6 g/dL (31.5-36.5); Platelet Count 78 K/mm3 (150-400); RDW Coefficient Variation 25.7 % (11.7-14.2); RDW Standard Deviation 91.9 fL (35.1-46.3); Red Blood Cell Count 2.69 M/mm3 (3.80-5.20)
[2022-02-05 04:22] LABS: Mean Corpuscular Volume 100 fL (80-100); Mean Platelet Volume 13.2 fL (9.1-12.4); White Blood Cell Count 8.52 K/mm3 (4.00-11.30)
--- NOTE | 2022-02-05 04:30 | NUR ---
FOLLOW UP PHYSICAL ASSESSMENT UNCHANGED AT THIS TIME. BP IS SOFT BUT IS CONSISTENTLY WITH SBP<90 AND MAP AROUND 61. DECISION WAS TO RESTARTED THE LEVOPHED PER THIS RN AND CHARGE NURSE SINCE PATIENT HAS ALSO HAD MINIMAL URINE OUTPUT. PT ASLEEP WEARING 3L NC. WILL CONTINUE TO MONITOR.
[2022-02-05 04:37] LABS: Calcium, Blood 7.1 mg/dL (8.5-10.1); Creatinine, Blood 0.75 mg/dL (0.40-1.00); Potassium, Blood 3.6 mmol/L (3.5-5.5)
--- NOTE | 2022-02-05 05:52 | NUR ---
SHIFT SUMMARY PTS PHYSICAL ASSESSMENT HAS REMAINED UNCHANGED THROUGHOUT THE NIGHT. PT RESTING COMFORTABLY ON 3L NC. VITALS WERE STABLE MOST OF THE NIGHT BUT REQUIRED LEVOPHED TO BE RESTARTED IN THE NURSE FIRST ASSIST HOURS. PT MAP HAS BEEN >60 ALL NIGHT BUT SBP WAS NEAR 80 SO NE WAS RESUMED. PT CURRENTLY AT 3MCG AND BP IS 88/61 (70), PT HAS MADE MINIMAL URINE THIS SHIFT BUT 5L WAS REMOVED YESTERDAY VIA PARACENTESIS. HGB STABLE NOW AT 8.8. WILL CONTINUE TO MONITOR.
--- NOTE | 2022-02-05 07:15 | NUR ---
ASSUMPTION OF CARE RECEIVED REPORT AND ASSUMED CARE OF PATIENT AT 0705. PATIENT IN BED WITH EYES CLOSED, EASILY AWOKE. A/O, 3L [address] WITH SP02 ABOVE 95%, DECREASED 02 TO 2L. LEVOPHED INFUSING AT 3MCG VIA PICC IN LUE. DECREASED TO 2MCG FOR MAP ABOVE 60. FRAZIER PATENT AND DRAINING DARK, JENNIFER URINE. WILL REVIEW ORDERS AND TREAT PRESCRIBED, CALL LIGHT IN REACH.
--- NOTE | 2022-02-05 18:08 | NUR ---
SHIFT SUMMARY PATIENT OFF LEVOPHED AT START OF SHIFT, MAP MAINTAINED ABOVE 60. MIDODRINE DOSE INCREASED AND ALBUMIN GIVEN. IV FLUIDS DISCONTINUED. REMAINS ON 2-3L 02 VIA NC, ATTEMPTED ROOM AIR, SATS DROPPED BELOW 90. MINIMAL PO INTAKE DUE TO POOR APPETITE, ENSURES PROVIDED WITH MEALS. ABD FIRM AND DISTENDED, FRAZIER WITH 75ML OF DARK URINE WITH SEDIMENT. PATIENT INCONTINENT OF MULTIPLE JELLY, BROWN LOOSE STOOLS REQUIRING LINEN CHANGES EACH TIME. PATIENT STATING HER STOOLS AND ABDOMEN ARE UNCOMFORTABLE AND SHE CONTINUES TO FEEL VERY WEAK. DISCUSSED WITH PATIENT WHAT WAS OCCURING WITH HER LIVER THAT IS CAUSING HER DISCOMFORTS. READDRESSED CURRENT STATUS AND ASKED PATIENT IF SHE WAS STILL THINKING ABOUT HER GOALS WITH MEDICAL CARE AND VERIFIED WHICH PERSON WOULD MAKE HER DECISIONS IF NEEDED. PATIENT STATED TO KEEP THINGS THE WAY THEY ARE AND HER FRIEND GABO IS WHO SHE RELIES ON TO HELP MAKE MEDICAL DECISIONS WHEN NEEDED. PATIENT VERBALIZED UNDERSTANDING TO THE EDUCATION PROVIDED.
--- NOTE | 2022-02-05 20:00 | NUR ---
ASSUMED CARE OF PT AT 1900. REPORT RECEIVED AT BEDSIDE. PT PRESENTS IN BED. INITIALLY ASLEEP. EASILY AWAKENS TO GREETING AND CARE. HAS BEEN INCONTINENT TO STOOL. SOME LOOSE WITH UNDIGESTED FOOD PARTICLES NOTED. PT VERY COOPERATIVE WITH CLEAN UP AND WITH DEMPSEY PAD CHANGE. DISCUSSED PLAN FOR Q 2 AND PRN TURNS. TO CALL RN IF SHE HAS HAD STOOL. PT VERBALIZES UNDERSTANDING. WILL REVIEW CHART AND PLAN OF CARE FOR THIS PT.
--- NOTE | 2022-02-05 23:00 | NUR ---
HAVE TURNED PT Q 2 HOURS. ALSO HAVE REQUIRED ASSIST TO CLEAN PT SECONDARY TO BEING INCONTINENT TO STOOL. PT HAS BEEN UNAWARE SHE HAD BM SEVERAL TIMES. GLUTEAL AND NAS AREA SKIN WITH SOME REDNESS. BARRIER CREAM HAS BEEN USED TO PROTECT SKIN. PT REMAINS ALERT AND ORIENTED. PLEASANT AND COOPERATIVE WITH CARE AND ASSESSMENT. PT IS ABLE TO ASSIST WITH TURNS
--- NOTE | 2022-02-06 | NUR ---
HAVE TURNED PT Q 2 HOURS TO PROTECT SKIN INTEGRITY. PT AWAKENS EASILY AT TIMES AND BECOMES ANXIOUS. HAVE TITRATED PROPOFOL UPWARDS TO 45 MCG'S/KG/MIN. THIS HAS HELPED PT TO BE ABLE TO TOLERATE VENT BETTER. HAVE MEDICATED PT ONCE WITH 50 MCG'S FENTANYL ADJUNCT TO PROPOFOL FOR VENT TOLERANCE. YELLOW SECRETIONS SUCTIONED PER ETT. HAVE TITRATED FIO2 DOWN TO 30 PERCENT. WILL CONTINUE TO MONITOR.
--- NOTE | 2022-02-06 03:49 | NUR ---
PT DOES TURN HERSELF IN BED AT TIMES. VOICES NO COMPLAINTS AT THIS TIME.
[2022-02-06 04:50] LABS: Hematocrit 24.9 % (33.0-51.0); Hemoglobin 8.1 g/dL (11.5-16.0); Mean Corpuscular HGB 33.1 pg (26.0-34.0); Mean Corpuscular HGB Conc 32.5 g/dL (31.5-36.5); Mean Corpuscular Volume 102 fL (80-100); Platelet Count 72 K/mm3 (150-400); RDW Coefficient Variation 25.2 % (11.7-14.2); RDW Standard Deviation 92.3 fL (35.1-46.3); Red Blood Cell Count 2.45 M/mm3 (3.80-5.20); White Blood Cell Count 7.12 K/mm3 (4.00-11.30)
[2022-02-06 05:01] LABS: Mean Platelet Volume 13.7 fL (9.1-12.4)
[2022-02-06 05:13] LABS: Albumin, Blood 2.8 g/dL (3.4-5.0); Albumin/Globulin Ratio 1.3 (0.8-1.8); Bilirubin, Total 3.6 mg/dL (0.1-1.0); Bun/Creatinine Ratio 12.6 (12.0-20.0); Calcium, Blood 7.8 mg/dL (8.5-10.1); Creatinine, Blood 0.8 mg/dL (0.40-1.00); Globulin, Blood 2.2 g/dL (2.2-4.0); Magnesium, Blood 1.6 mg/dL (1.6-2.4); Potassium, Blood 3.6 mmol/L (3.5-5.5)
--- NOTE | 2022-02-06 08:00 | NUR ---
[place] of Care: Care assumed at 0700hr. Patient sleeping, easily roused to verbal stimuli, A/O x4. C/o pain to ABD with palpation, otherwise comfortable. VSS, spO2 97% on 3L/NC, denies dyspnea/SOB. PICC line to WOODY patent, but dressing shows large amount of dried blood, plan to change dressing early this shift. Maloney cath patent and intact, draining small amount of clear dark yellow urine. Poor apatite r/t c/o nausea. PRN zofran given with good effect, patient attempting to eat breakfast at this time. Will continue to monitor.
--- NOTE | 2022-02-06 18:23 | NUR ---
Shift Summary: NO significant changes throughout shift. Patient continues to have little to no PO intake, stating to not have an apatite, no further c/o nausea since shift change. Ate 5% of breakfast, 0% of lunch and approx 15% of dinner, only 350ml fluid intake. Patient also only had 60ml urine output. Call placed to Dr. Tam to discuss I/O. Received orders for NS at 100ml/hr and Albumin. Patient remains a/o x4 and calm/cooperative with staff. Call light in reach, makes, needs known. Will continue to monitor until report to NOC shift RN.
--- NOTE | 2022-02-06 19:45 | NUR ---
ASSUMPTION OF CARE REPORT RECEIVED ON THIS PATIENT AT THE BEDSIDE FROM NISA BENSON. PT APPEARS COMFORTABLE IN BED AND IS ALERT AND ORIENTED THE PT BLOOD PRESSURE WAS READING LOW AROUND 1930. PT CUFF ADJUSTED AND PT BP IS NOW 94/71 AND MAP IS 79. PT IS ON 2L NC AND RESPIRATIONS ARE EVEN AND UNLABORED. PT IS COMPLAINING OF A HEADACHE AND GENERALIZED ACHES IN HER LEGS. WILL CHECK THE EMAR FOR ANY INTERVENTIONS SHE MAY HAVE ORDERED. PT REPOSITIONED IN BED AND TURNED TO THE LEFT. PT IS NOTED TO HAVE A FRAZIER THAT IS DRAINING TO GRAVITY. VITALS ARE STABLE. WILL CONTINUE TO MONITOR.
--- NOTE | 2022-02-07 01:18 | NUR ---
FOLLOW UP ASSESSMENT PT RESTING IN BED COMFORTABLY WEARING 4L NC. PT STATES THAT SHE THINKS HER ABDOMINAL DISTENTION IS AGAIN IMPAIRING HER ABILITY TO BREATHE DEEPLY. PT HAS BEEN HAVING SEVERAL INCIDENCES OF FECAL INCONTINENCE. PT IS ALREADY RECEIVING PROBIOTICS AND WAS GIVEN HER PRN IMMODIUM EARLIER BUT THIS DOES NOT SEEM TO BE WORKING. PT IS NOTED TO HAVE A MODERATE AMOUNT OF EXCORIATION IN HER PERINEAL AREA. PT WASHED WITH SOAP AND WATER AND PATTED DRY. BARRIER CREAM APPLIED AND ENCOURAGED PT TO CALL IF SHE FEELS LIKE SHE NEEDS TO USE THE RESTROOM OR IS DIRTY TO PREVENT FURTHER EXCORTIATION. PT REPOSITIONED IN BED BUT REFUSES TO TURN ON HER SIDE. EDUCATED PT ON IMPORTANCE OF MOBILITY DUE TO HER POOR NUTRITION STATUS AND CACHECTIC BODY HABITUS.THE PTS BLOOD PRESSURE MUCH BETTER THAN IN DAYS PAST. VITALS HAVE ALL BEEN STABLE. WILL CONTINUE TO MONITOR. WILL CONTINUE TO MONITOR.
--- NOTE | 2022-02-07 03:55 | NUR ---
FOLLOW UP ASSESSMENT PT IS RESTING COMFORTABLY IN BED AND APPEARS ASLEEP. VSS WITH PT WEARING 4LNC. OTHER PHYSICAL ASSESSMENT FINDINGS ARE UNCHANGED. PT HAS SMALL AMOUNT OF AMVER URINE NOTED IN FRAZIER BAG. PT HAS HAD POOR ORAL INTAKE AND MOST OF HER INTAKE HAS BEEN IN THE FORM OF IVF. PT RECEIVING NS@ 100/HR. PT SELF REPOSITIONED FROM THE LAST TIME I ENCOURGAED HER TO MOVE IN THE BED ROUTINELY. WILL CONTINUE TO MONITOR.
[2022-02-07 05:48] LABS: Hematocrit 25.2 % (33.0-51.0); Hemoglobin 8.1 g/dL (11.5-16.0); Mean Corpuscular HGB 32.8 pg (26.0-34.0); Mean Corpuscular HGB Conc 32.1 g/dL (31.5-36.5); Mean Corpuscular Volume 102 fL (80-100); Platelet Count 76 K/mm3 (150-400); RDW Coefficient Variation 24.7 % (11.7-14.2); RDW Standard Deviation 91.3 fL (35.1-46.3); Red Blood Cell Count 2.47 M/mm3 (3.80-5.20); White Blood Cell Count 5.84 K/mm3 (4.00-11.30)
[2022-02-07 05:55] LABS: Mean Platelet Volume 13.9 fL (9.1-12.4)
--- NOTE | 2022-02-07 05:57 | NUR ---
SHIFT SUMMARY PT HAS RESTED WELL OVERNIGHT WITH ALL VITALS REMAINING STABLE. PT IS ON 4L NC AND WAS HAVING MORE SHORTNESS OF BREATH, BUT ABDOMEN IS AGAIN DISTENDED WHICH THIS IS RELATED TO, PER PT. PT HAS HAD SEVERAL EPISODES OF INCONTINENCE TONIGHT, BUT CATH CARE AND NAS CARE HAVE BEEN COMPLETED EACH TIME. BARRIER CREAM APPLIED TO NAS AREA. PT IS NO LONGER WEARING ATTENDS IN ORDER PREVENT FURTHER SKIN BREAKDOWN. NS STILL INFUSING AT 100ML/HR AND PT HAS HAD MINIMAL URINE OUTPUT. WILL CONTINUE TO MONITOR AND PASS ALONG REPORT WHEN AM NURSE ARRIVES.
[2022-02-07 06:02] LABS: Albumin, Blood 2.8 g/dL (3.4-5.0); Albumin/Globulin Ratio 1.2 (0.8-1.8); Bilirubin, Total 2.8 mg/dL (0.1-1.0); Bun/Creatinine Ratio 14.7 (12.0-20.0); Calcium, Blood 7.9 mg/dL (8.5-10.1); Creatinine, Blood 0.82 mg/dL (0.40-1.00); Globulin, Blood 2.3 g/dL (2.2-4.0); Potassium, Blood 3.8 mmol/L (3.5-5.5); Total Protein, Blood 5.1 g/dL (6.4-8.2)
--- NOTE | 2022-02-07 07:07 | NUR ---
TOOK OVER CARE OF PT AT 0700. PT RESTING ON 4L NC.
--- NOTE | 2022-02-07 16:30 | NUR ---
SUMMARY NEURO: A/OX4, LETHARGIC THROUGHOUT THE DAY, GENERALIZED WEAKNESS CARDIAC: NSR, HR 80'S 90'S. BLE +2 PITTING EDEMA, DEPENDENT TRACE EDEMA GI: FREQUENT LOOSE STOOLS, EXCORITION AROUND PERIANAL AREA. POOR APPETITE. EATING LESS THAN 15% OF MEALS AND SOMETIMES DRINKING 25-50%OF HER ENSURES. ABDOMEN DISTENEDED AND TENDER. : FRAZIER IN PLACE, JENNIFER URINE, LOW OUTPUT LUNGS: DIMINISHED BASES BILATTERALLY, 3L NC PT RECIEVED 25G OF ALBUMIN THIS SHIFT AND NS IV FLUIDS WERE DECREASED FROM 100ML/HR TO 50ML/HR. PALLIATIVE HAS BEEN RECONSULTED TO DISCUSS HOPSICE WITH PT.
--- NOTE | 2022-02-07 17:40 | NUR ---
TRANSFER: PT TRANSFERRED FROM ICU 15 TO PCU 6 @1730. PT SBA FROM WHEELCHAIR TO BED. BP STABLE, HR 90'S, AFEBRILE, PT ON 3L NC SATING >95%. CONTINOUS PULSE OX IN PLACE. HYPOACTIVE BS, ABDOMEN MODERATLY DISTENDED. NS GTT @50ML HR. PT HAD 1 BM, BRIEF CHANGED, BARRIER CREAM APPLIED. PT ORIENTED TO ROOM AND CALL LIGHT. BED ALARM ON, BED IN LOW, CALL LIGHT IN REACH. WILL REPORT TO ONCOMING RN.
[2022-02-08 04:57] LABS: Hemoglobin 8.1 g/dL (11.5-16.0); Mean Corpuscular HGB 32.8 pg (26.0-34.0); Mean Corpuscular HGB Conc 32.4 g/dL (31.5-36.5); Mean Corpuscular Volume 101 fL (80-100); Platelet Count 71 K/mm3 (150-400); RDW Coefficient Variation 24.2 % (11.7-14.2); Red Blood Cell Count 2.47 M/mm3 (3.80-5.20)
[2022-02-08 05:06] LABS: Mean Platelet Volume 13.3 fL (9.1-12.4)
[2022-02-08 05:19] LABS: Albumin, Blood 2.8 g/dL (3.4-5.0); Albumin/Globulin Ratio 1.2 (0.8-1.8); Bilirubin, Total 3.3 mg/dL (0.1-1.0); Bun/Creatinine Ratio 18.8 (12.0-20.0); Creatinine, Blood 0.8 mg/dL (0.40-1.00); Globulin, Blood 2.3 g/dL (2.2-4.0); Potassium, Blood 3.8 mmol/L (3.5-5.5); Total Protein, Blood 5.1 g/dL (6.4-8.2)
--- NOTE | 2022-02-08 06:12 | NUR ---
SHIFT SUMMARY PT ALERT AND ORIENTED X 4. HR STABLE. BP STABLE. MAP ABOVE 65. NO CP OR PRESSURE REPORTED. OXYGEN SATURATION MAINTAINED ABOVE 92% ON 4 L VIA NC. PT HAS FREQUENT LIQUID LOOSE STOOLS, SKIN EXCORIATED ON NAS-RECTAL AREA. PT AGREES TO RECTAL TUBE. PT TOLERATED WELL AND DRAINING. FRAZIER PATENT AND DRAINING TO GRAVITY. VERY LITTLE URINE OUPUT,HOSPITALIST AWARE. CALL LIGHT WITHIN REACH. WILL CONT TO MONITOR UNTIL REPORT GIVEN TO DAYSGALE BENSON.
--- NOTE | 2022-02-08 18:53 | NUR ---
SHIFT SUMMARY: NO ACUTE CHANGES T/OUT SHIFT TODAY. PT LETHARGIC, SLEEPS OFTEN, AROUSES EASILY, ORIENTED x4, COOPERATIVE WITH CARE. O2 FLOW TITRATED TO 3 L/MIN, O2 SATS >92%. PT DENIES SOB/CHEST PAIN, MEDICATED x1 FOR C/O NAUSEA. PT W/NO FOOD INTAKE, DRINKS WATER AND SWALLOWS PILLS W/OUT DIFFICULTY. INDWELLING FRAZIER PATENT, DRAINING TO GRAVITY. RECTAL TUBE ALSO PATENT, DRAINING TO GRAVITY. NS CONTINUES TO INFUSE PER ORDERS. WILL CONTINUE TO MONITOR AND TREAT ACCORDINGLY UNTIL CHANGE OF SHIFT.
[2022-02-09 04:26] LABS: Hematocrit 27.8 % (33.0-51.0); Hemoglobin 8.9 g/dL (11.5-16.0); Mean Corpuscular HGB 32.8 pg (26.0-34.0); Mean Corpuscular Volume 103 fL (80-100); Platelet Count 77 K/mm3 (150-400); RDW Standard Deviation 88.7 fL (35.1-46.3); Red Blood Cell Count 2.71 M/mm3 (3.80-5.20); White Blood Cell Count 5.01 K/mm3 (4.00-11.30)
[2022-02-09 04:27] LABS: Mean Platelet Volume 13.3 fL (9.1-12.4)
[2022-02-09 04:46] LABS: Albumin, Blood 2.6 g/dL (3.4-5.0); Albumin/Globulin Ratio 1.1 (0.8-1.8); Bilirubin, Total 3.4 mg/dL (0.1-1.0); Bun/Creatinine Ratio 21.8 (12.0-20.0); Calcium, Blood 7.9 mg/dL (8.5-10.1); Creatinine, Blood 0.83 mg/dL (0.40-1.00); Globulin, Blood 2.4 g/dL (2.2-4.0); Potassium, Blood 3.6 mmol/L (3.5-5.5)
--- NOTE | 2022-02-09 06:10 | NUR ---
SHIFT SUMMARY PT ALERT AND ORIENTED X 4. PT REPORTS PAIN "ALL OVER" AND NAUESEA. MEDICATED PER EMAR. PT SLEPT T/O SHIFT. TURNED Q [address] PL[address],DRAINING TO GRAVITY. FRAZIER PATENT AND TO GRAVITY DRAIN. NO CP OR PRESSURE. HR STABLE. BP STABLE. OXYGEN SATURATION MAINTAINED ABOVE 94% ON 2 L VIA NC. CALL LIGHT WITHIN REACH. WILL CONT TO MONITOR UNTIL REPORT GIVEN TO DAYSHIFT RN.
--- NOTE | 2022-02-09 08:15 | NUR ---
PT HAD A VERY WET COUGH WELL CRACKLES HEARD THE THE BASES. PT ENCOURAGED TO COUGH AND REPOSITIONED. NO SOB OR DYSPNEA NOTED. PT MAINTAINING SPO2 >94 ON 3L NC. WILL CONTINUE TO MONITOR
--- NOTE | 2022-02-09 11:05 | NUR ---
UPDATE SPOKE WITH SINAN IN PALLATIVE CARE ABOUT PT'S PLAN OF CARE. SINAN HAS SPOKEN WITH THE PT AND DR KOEHLER IN DETAIL ABOUT PT'S DISEASE PROGESSION AND FOR POSSIBLE CHANGE IN CODE STATUS WELL POSSIBLE HOSPICE CARE. PT STATED SHE UNDERSTANDS THE INFORMATION GIVEN TO HER WELL HER TREATMENT OPTIONS
--- NOTE | 2022-02-09 11:06 | NUR ---
PT LINENS CHANGED AND FULL BED BATH GIVEN DUE TO RECTAL TUBE LEAKAGE. RECTAL TUBE IS STILL SECURE AND DRAINING BROWNISH/GREEN STOOL. PT'S LS HAVE IMPROVED, STILL COARSE BUT CRACKLES ARE ALMOST COMPLETELY GONE. WILL CONTINUE TO MONITOR THE SITUATION.
--- NOTE | 2022-02-09 11:56 | NUR ---
Pt more frail and fatigued, sleeps most of the time has rectal tube. Have more pain. gently spoke to patient about her condition. She states pain is better but her stomach is queasy. Asked her if we could keep her out of ICU and not on a ventilator. She stated she did not want that. Talked to her briefly about going to a [facility] on hospice care so she could see her dog. She was ok with that. She is frail hard to track conversation. Advised physician of our conversation. This writed has spoke with pt before on her condition on previous admissions. Called m[facility]uri and left message also got on patients phone and sent him a text. If she declines further and we dont hear from [facility] will get ethic consult and make her comfort care. Pt at risk for suffering and looks to be declining further.
--- NOTE | 2022-02-09 17:00 | NUR ---
SHIFT SUMMARY PT OS A/Ox2 AND HAS BEEN LETHARGIC T/O MY SHIFT. PT IS AROUSABLE TO PAIN/VERBAL STIMULI, BUT IS ARIEL SLUGGISH TO RESPOND TO QUESTIONS. PT'S RECTAL TUBE IS STILL IN PLACE WITH ONLY MINOR LEAKAGE NOTED IN THE AM. PT MAINTAINS SPO2 >94 ON 3L NC WITH NO SIGNS OF SOB OR DYSPNEA NOTED. PT'S BREATHS ARE SHALLOW AND LS ARE COARSE T/O. PT'S BP IS SOFT WITH HR RANGING IN THE UPPER 90S. PT HAS BEEN TOO SLUGGISH TO TAKE MOST OF HER PO MEDICATONS AND HAS A HARD TIME SWALLOWING FLUIDS. PALLATIVE CARE SPOKE IN DEPTH TO PT AND WITH PT'S POA ABOUT HER PLAN OF CARE AND THE TRAGECTORY OF HER ILLNESS. PT'S POA AND PT AGREED THAT A CHANGE IN CODE STATUS TO DNR AND TRANSITION TO COMFORT CARE WOULD BE APPROPRIATE COURSE OF ACTION. PT HAS BEEN TURNED Q2HRS ORDERED WITH NO SIGNS OF PRESSURE ULCER FORMULATION PRESENT. SLIGH REDNESS NOTED ON COCCYX AND NAS AREA, BUT BARRIER CREAM HAS BEEN APPLIED TO PREVENT ANY FURTHER BREAKDOWN. BONI REIS
--- NOTE | 2022-02-09 18:20 | NUR ---
TRANSFER OF CARE NOTE GAVE REPORT TO UNA LOTT RN ABOUT PT'S CURRENT STATUS AND PLAN OF CARE. ANSWERED ALL QUESTIONS ASKED BY RN. PT'S BLOOD PRESSURES HAVE BEEN STOFT, BUT STABLE UPON TRANSFER. PT MAINTAINED SPO2 >94 ON 3L NC T/O THE SHIFT AND TRANSFER. SMILEY, BONI
--- NOTE | 2022-02-09 18:48 | NUR ---
Patient transferred from PCU to medical floor at 1830. Handoff report given by RN. Patient arrived resting comfortably in bed, respirations shallow, saturations stable on 3L/oxygen. Rectal tube/kim in place, patent/draining to gravity. Will continue to monitor.
--- NOTE | 2022-02-10 06:33 | NUR ---
NOC SHIFT SUMMARY PATIENT TRANSFERRED TO MEDICAL FLOOR 02/09 AT 1800. COMFORT CARE. MEDICATED X2 PRIOR TO REPOSITION/CHANGING. RECTAL TUBE AND FRAZIER IN SITU. REFUSES TO KEEP O2 ON; UNABLE TO REDIRECT.
--- NOTE | 2022-02-10 16:19 | NUR ---
PT HAS BEEN HARD TO AROUSE ALL DAY. WILL OCCASIONALLY START TO MOAN AND LABOR MORE WITH BREATHING. TREATED PER EMAR THIS WORKED WELL AT START OF SHIFT, BUT THEN PT BEGAN TO APPEAR MORE UNCOMFORTABLE. NOTIFIED DR KOEHLER AND SHE ADDED MEDICATION TO EMAR. WILL CONTINUE TO MONITOR.
--- NOTE | 2022-02-10 16:25 | NUR ---
pt transitioning appears eminent. Review of meds with nursing RN [facility] increased meds for air hunger. Review of pt life and suffering she has experinced since her dies due to poverty and frailty. Goal is a repectful and comfortable passing with support. Prayer given as she has express she would appreciate it in the past. Therputic touch and talk reenforced that her dog is safe with her friend.
--- NOTE | 2022-02-10 20:35 | NUR ---
BROUGHT ROXANOL AND ATIVAN TO ROOM FOR AIR HUNGER. PT PASSED IN PROCESS OF SIGNING INTO COMPUTER AT 2034. MEDICATIONS DESTROYED. CHARGE NURSE NOTIFIED. TWO RN VERIFICATION OF APNEA AND SYSTOLY.
--- NOTE | 2022-02-10 22:11 | NUR ---
[id number], CURTIS, NOTIFIED OF PT'S PASSING AND WILL ANTICIPATE PHOEN CALLS FROM [place] [facility] AND [employer] DIRECTORS.
== END 2022-02-10 20:35 | DRG 432 ==
LOC: ER 21:28 → MEDS 02-02 03:04 → ICUW 02-02 03:04 → PCU 02-07 17:32 → MEDS 02-09 18:30
PROVIDERS: Family Medicine; Internal Medicine; Student in an Organized Health Care Education/Training Program; ADMIT Internal Medicine
PROC: 3E033XZ Introduction of Vasopressor into Peripheral Vein, Percutaneous Approach (ICD-10-PCS; principal; 2022-02-02)
PROC: 30233K1 Transfusion of Nonautologous Frozen Plasma into Peripheral Vein, Percutaneous Approach (ICD-10-PCS; 2022-02-02)
PROC: 30233N1 Transfusion of Nonautologous Red Blood Cells into Peripheral Vein, Percutaneous Approach (ICD-10-PCS; 2022-02-02)
PROC: 02HV33Z Insertion of Infusion Device into Superior Vena Cava, Percutaneous Approach (ICD-10-PCS; 2022-02-02)
PROC: 0W9G3ZZ Drainage of Peritoneal Cavity, Percutaneous Approach (ICD-10-PCS; 2022-02-04)
DX: K70.31 Alcoholic cirrhosis of liver with ascites (principal); E43 Unspecified severe protein-calorie malnutrition; G92.8 Other toxic encephalopathy; I85.00 Esophageal varices without bleeding; K86.1 Other chronic pancreatitis; R64 Cachexia; I82.890 Acute embolism and thrombosis of other specified veins; Z51.5 Encounter for palliative care; Z66 Do not resuscitate; R57.1 Hypovolemic shock; E87.6 Hypokalemia; I86.4 Gastric varices; Z20.822 Contact with and (suspected) exposure to COVID-19; M81.0 Age-related osteoporosis without current pathological fracture; D50.9 Iron deficiency anemia, unspecified; J44.9 Chronic obstructive pulmonary disease, unspecified; K21.9 Gastro-esophageal reflux disease without esophagitis; I10 Essential (primary) hypertension; F17.210 Nicotine dependence, cigarettes, uncomplicated; F32.A Depression, unspecified; E78.00 Pure hypercholesterolemia, unspecified; L40.9 Psoriasis, unspecified; M19.90 Unspecified osteoarthritis, unspecified site; R62.7 Adult failure to thrive; G62.9 Polyneuropathy, unspecified; F10.20 Alcohol dependence, uncomplicated; Z79.51 Long term (current) use of inhaled steroids; Z86.61 Personal history of infections of the central nervous system; Z79.899 Other long term (current) drug therapy; Z98.890 Other specified postprocedural states; Z68.20 Body mass index [BMI] 20.0-20.9, adult; Z86.718 Personal history of other venous thrombosis and embolism; Z87.19 Personal history of other diseases of the digestive system; Z87.440 Personal history of urinary (tract) infections; Z85.828 Personal history of other malignant neoplasm of skin; Z87.81 Personal history of (healed) traumatic fracture; K70.11 Alcoholic hepatitis with ascites
CPT/HCPCS: 0241U; 36415; 36430; 36556; 36569; 36600; 49083; 51702; 71045; 80048; 80053; 81001; 82140; 82728; 82803; 82945; 82977; 83540; 83550; 83605; 83615; 83690; 83735; 83880; 84132; 84157; 84443; 84484; 85025; 85027; 85610; 86850; 86900; 86901; 86920; 86923; 87040; 87070; 87086; 87205; 87507; 88108; 88305; 89051; 92526; 92610; 93005; 93010; 94664; 94667; 94762; 96365; 96366; 96375; 97110; 97162; 98960; 99291-25; A9270; C1751; C9113; J2405; J2543; J2916; J3370; J3475; J3480; J7030; J7040; J7042; J7050; J7060; P9016; P9047; P9059